=== PATIENT | female | born 1955 | race Caucasian/White ===

== ENCOUNTER 2016-11-28 16:20 | Inpatient (IN) ==
--- NOTE | 2016-11-28 18:51 | Emergency Department Note ---
Disposition Clinical Impression: Carotid stenosis, symptomatic w/o infarct Qualifiers: Laterality: bilateral Qualified Code(s): I65.23 - Occlusion and stenosis of bilateral carotid arteries Disposition: Admitted As Inpatient Referrals: Alivia Worthy MD [Primary Care Provider] - Forms: ED Satisfaction Letter Recheck wound or abnormal lab - General Chief Complaint: ED Recheck/Abnormal Lab/Rx Stated Complaint: sent from PCP Source: patient Limitations: no limitations Nursing Notes Reviewed: Yes Vital Signs Reviewed: Yes - History of Present Illness HPI Narrative: Patient presents from her primary care physician office for CT scan. Per report patient had a CVA in August 2016. Patient has significant occlusion of her bilateral internal carotid arteries. Patient does have some deficits from previous. Due to patient continue her symptoms patient would need a CTA of the neck to evaluate the carotids further. She denies chest pain or shortness of breath. - Related Data Home Medications Medication Instructions Recorded Confirmed Atorvastatin Calcium [Lipitor] 40 mg PO HS 11/07/16 11/07/16 Clopidogrel Bisulfate 75 mg DAILY 11/07/16 11/07/16 Famotidine [Pepcid] 20 mg PO BID 11/07/16 11/07/16 Lisinopril [Zestril] 5 mg PO DAILY 11/07/16 11/07/16 Aspirin 81 mg PO DAILY 11/28/16 11/28/16 Baclofen 20 mg PO DAILY 11/28/16 11/28/16 Zolpidem [Ambien] 10 mg PO HS 11/28/16 11/28/16 Allergies Allergy/AdvReac Type Severity Reaction Status Date / Time No Known Allergies Allergy Verified 11/07/16 19:18 All systems ED: reviewed and negative except as stated. Past Medical History - Past Medical History Source: patient Medical history: Reports: arthritis, coronary artery disease, CVA, hyperlipidemia, hypertension, other Surgical history: Reports: no surgical history Psychiatric history: Reports: no psych history SENIOR JAVA DATA ARCHITECT history: Reports: no SENIOR JAVA DATA ARCHITECT history - Social History Smoking Status: Current every day smoker Smokeless Tobacco Status: No Alcohol use: Reports: none Drug use: Reports: none Physical Exam - General Limitations: no limitations General appearance: alert, in no apparent distress - Head Head exam: atraumatic, normocephalic, normal inspection - Eye Eye exam: Present: normal appearance, PERRL, EOMI - ENT ENT exam: normal exam, normal oropharynx, mucous membranes moist - Neck Neck exam: Present: normal inspection, full ROM, trachea midline - Chest Chest inspection: Present: normal inspection, symmetric chest wall rise - Respiratory Respiratory exam: Present: normal lung sounds bilaterally - Cardiovascular Cardiovascular exam: Present: regular rate, normal rhythm, normal heart sounds - Abdominal Exam Abdominal exam: Present: soft, Non-Tender. Absent: tenderness, distention, guarding, rebound, rigidity - Extremities Exam Extremities exam: Present: other (Decreased strength in right upper extremity compared to the left. At baseline for her previous CVA). Absent: tenderness, pedal edema - Back Exam Back exam: Present: normal inspection, full ROM. Absent: tenderness - Neurological Exam Neurological exam: Present: alert - Psychiatric Psychiatric exam: Present: normal affect, normal mood - Skin Skin exam: Present: warm, dry, intact, normal color Course Vital Signs Temperature 98.0 F 11/28/16 16:22 Pulse Rate 85 11/28/16 16:22 Respiratory Rate 14 11/28/16 16:22 Blood Pressure 159/98 11/28/16 16:22 O2 Sat by Pulse Oximetry 93 L 11/28/16 16:22 Temperature 98.0 F 11/28/16 16:22 Pulse Rate 85 11/28/16 16:22 Respiratory Rate 14 11/28/16 16:22 Blood Pressure 159/98 11/28/16 16:22 O2 Sat by Pulse Oximetry 93 L 11/28/16 16:22 Oxygen Delivery Oxygen Delivery Room Air Recheck wound or abnormal lab - Lab Data Lab results reviewed: Yes I reviewed the patient's lab results. Result diagrams: 11/28/16 19:10 11/28/16 19:09 Lab Results 11/28/16 11/28/16 Range/Units 19:09 19:10 WBC 6.2 (4.3-11.1) K/mcL RBC 4.71 (3.82-4.97) M/mcL Hgb 14.5 (11.5-15.4) g/dL Hct 43.5 (35.3-44.9) % MCV 92.4 (83.0-100.0) fL MCH 30.8 (28.0-33.3) pg MCHC 33.3 (31.6-35.5) g/dL RDW 12.7 (11.5-14.5) % Plt Count 246 (140-400) K/mcL MPV 10.1 (9.4-12.4) fL Immature Gran % 0.3 (0-4) % Seg Neutrophils % 54.3 % Lymphocytes % 34.9 % Monocytes % 9.0 % Eosinophils % 1.0 % Basophils % 0.5 % Neutrophils # 3.4 (1.6-8.9) K/mcL Lymphocytes # 2.2 (0.6-4.6) K/mcL Monocytes # 0.6 (0.0-1.3) K/mcL Eosinophils # 0.1 (0.0-0.6) K/mcL Basophils # 0.0 (0.0-0.2) K/mcL Sodium 139 (136-145) mEq/L Potassium 4.1 (3.5-4.5) mEq/L Chloride 107 (98-109) mEq/L Carbon Dioxide 22 (19-29) mEq/L BUN 5 L (7-20) mg/dL Creatinine 0.63 (0.57-1.11) mg/dL Est GFR ( Amer) > 60 (> 60) Est GFR (Non-Af Amer) > 60 (> 60) BUN/Creatinine Ratio 8 (6-26) Glucose 94 (70-99) mg/dL Calculated Osmolality 285 (280-300) Calcium 9.4 (8.6-10.8) mg/dL Total Bilirubin 0.6 (0.2-1.2) mg/dL AST 19 (5-34) Units/L ALT 19 (0-55) Units/L Alkaline Phosphatase 82 (38-126) Units/L Serum Total Protein 6.1 (6.0-8.3) g/dL Albumin 3.7 (3.5-5.0) g/dL Globulin 2.4 (2.4-3.5) g/dL Albumin/Globulin Ratio 1.5 (1.1-2.2) - Radiology Data Radiology results reviewed: Yes I reviewed the patient's radiology results. Neck CTA 11/28/16 18:24 IMPRESSION: Complete occlusion of the left internal carotid artery at the origin. Approximately 90% diameter stenosis involving the midportion of the right internal carotid artery. Moderate-sized old left MCA infarct. D/ /28/2016 20:53:28 Kendrick Montemayor MD / stephon Interpreting Provider: Kendrick Montemayor MD Critical Care Time Total Critical Care Time: 30 Attestation: Critical care performed: Time is exclusive of separately billable procedures. Time includes: direct patient care, patient reassessment, coordination of patient care, interpretation of data (laboratory data, radiology data, and respiratory data), review of patient's medical records, medical consultation and documentation of patient care. Procedures included in critical care time: Procedures excluded from critical care time:
[2016-11-28 19:24] LABS: Basophils % 0.5 %; Eosinophils # 0.1 K/mcL (0.0-0.6); Hematocrit 43.5 % (35.3-44.9); Hemoglobin 14.5 g/dL (11.5-15.4); Immature Granulocytes % 0.3 % (0-4); Lymphocytes # 2.2 K/mcL (0.6-4.6); Lymphocytes % 34.9 %; Mean Corpuscular HGB Conc 33.3 g/dL (31.6-35.5); Mean Corpuscular Hemoglobin 30.8 pg (28.0-33.3); Mean Corpuscular Volume 92.4 fL (83.0-100.0); Mean Platelet Volume 10.1 fL (9.4-12.4); Monocytes # 0.6 K/mcL (0.0-1.3); Neutrophils # 3.4 K/mcL (1.6-8.9); Platelet Count 246 K/mcL (140-400); Red Blood Count 4.71 M/mcL (3.82-4.97); Red Cell Distribution Width 12.7 % (11.5-14.5); Segmented Neutrophils % 54.3 %
[2016-11-28 19:40] LABS: Alanine Aminotransferase 19 Units/L (0-55); Albumin 3.7 g/dL (3.5-5.0); Albumin/Globulin Ratio 1.5 (1.1-2.2); Alkaline Phosphatase 82 Units/L (38-126); Aspartate Amino Transferase 19 Units/L (5-34); BUN/Creatinine Ratio 8 (6-26); Bilirubin,Total 0.6 mg/dL (0.2-1.2); Calcium 9.4 mg/dL (8.6-10.8); Carbon Dioxide 22 mEq/L (19-29); Chloride 107 mEq/L (98-109); Globulin 2.4 g/dL (2.4-3.5); Glucose 94 mg/dL (70-99); Osmolality,Calculated 285 (280-300); Potassium 4.1 mEq/L (3.5-4.5); Sodium 139 mEq/L (136-145); Total Protein 6.1 g/dL (6.0-8.3); eGFR For African Americans > 60 (> 60); eGFR For Non-African Americans > 60 (> 60)
[2016-11-28 19:41] LABS: Blood Urea Nitrogen 5 mg/dL (7-20)
--- NOTE | 2016-11-29 00:58 | Internal Med History&Physical ---
<VikramSophia Weaver Saul - Last Filed: 11/29/16 05:38> Date of Encounter: 11/28/16 Time of Encounter: 23:30 Assessment and Plan (1) Carotid stenosis, symptomatic, with infarction Status: Acute Old Infarct with residual deficit to Left MCA CTA neck 11/28/16 -Right internal carotid with 90% diameter stenosis -Moderate old left MCA infarct, complete occlusion of left internal carotid Consult vascular surgery-appreciate evaluation and recommendations Consult neurology-appreciate evaluation and recommendations Continue home ASA, statin, anti-platelet therapy (2) History of CVA with residual deficit Status: Chronic Plan as above Consult PT/OT to develop POC for home therapy Consult Drier Tender for resource planning (3) Hyperlipidemia Status: Chronic Continue home medications Qualifiers: Hyperlipidemia type: unspecified Qualified Code(s): E78.5 - Hyperlipidemia , unspecified (4) Hypertension Status: Chronic Continue home medication Qualifiers: Hypertension type: essential hypertension Qualified Code(s): I10 - Essential (primary) hypertension (5) Current every day smoker Status: Acute Nicotine patch (6) 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 Daigle is a 61 year old female who presents as a direct admit from Dr. Yi , PCP, to evaluate carotid arteries with CTA neck. She states that she had a stroke in August,. She was living in [place], [place] at that time and began having drooling and right-sided facial droop. She refused to go to the ED. The following morning, patient's neighbor found her in her home and called EMS. Patient states that she had right leg paralysis, right arm paralysis, inability to walk, dysarthria, right facial droop, urinary incontinence. She denies having memory problem or bowel incontinence. At this time, the patient states that her dysarthria and facial droop is improved. However, she cannot walk. She still has arm and leg paralysis that she feels is improving. And, she continues to have urinary incontinence. She has moved back to [place] to live with her son and [id number] who are caring for her full-time. She has not undergone physical therapy due to the fact that she does not have insurance and cannot afford the expense of paying for therapy [id number]. Past Med Surg Social Fam HX - Past Medical History Medical history: arthritis, coronary artery disease, CVA, hyperlipidemia, hypertension, other (Right leg pain) Psychiatric history: no psych history - Past Surgical History Surgical History: no surgical history - Social History Smoking Status: Current every day smoker Smokeless Tobacco Status: No Alcohol use: none Drug use: none - Family History Mother Hx Family Cancer: Yes Father Living Status: Age at : 78 Cause of : [place] Hx Family Cardiac Disorders: Yes Hx Family Neuromuscular Disorders: Yes Hx Family Neurologic Disorders: Yes Internal Medicine - H&P: Meds Famotidine [Pepcid] 20 mg PO Q12H 11/07/16 [History] Lisinopril [Zestril] 5 mg PO DAILY 11/07/16 [History] Aspirin 81 mg PO DAILY 11/28/16 [History] Aspirin 81 mg PO DAILY #30 tab.chew 12/04/16 [Rx] Atorvastatin Calcium [Lipitor] 40 mg PO HS #30 12/04/16 [Rx] Baclofen [Lioresal] 15 mg PO TID #30 tablet 12/04/16 [Rx] Clopidogrel [Plavix] 75 mg PO DAILY #30 12/04/16 [Rx] HYDROcodone/Acet 5/325 mg [[place] 5-325 mg] 1 tab PO Q6HR PRN #20 tablet [Rx] Zolpidem [Ambien] 10 mg PO HS #10 12/04/16 [Rx] Allergies No Known Allergies Allergy (Verified 11/07/16 19:18) All Systems PM: A 10-system review of systems was performed and is negative for pertinent findings except as documented above in the HPI. - Constitutional Vitals: Temp Pulse Resp BP Pulse Ox 97.9 F 88 18 148/93 94 L 11/28/16 22:34 11/28/16 22:34 11/28/16 22:34 11/28/16 22:34 11/28/16 22:34 General appearance: Present: cooperative, A&O X 3, pleasant, answers questions appropriately - Head Head exam: Present: atraumatic, normal inspection, normocephalic - Eye Eye exam: Present: nystagmus (Left eye on right lateral gaze) Pupils: Present: unequal (Right pupil 4.5mm, reactive to light and accommodation. Left pupil 3mm, reactive to light and accomodation.) - Respiratory Respiratory exam: Present: CTAB. Absent: rhonchi, wheezes - Cardiovascular Cardiovascular exam: Present: RRR, +S1, +S2 - GI/Abdominal GI/Abdominal exam: Present: normal bowel sounds, soft. Absent: tenderness - Extremities Exam Extremities exam: Present: radial pulses palpable and symetrical Additional comments: Right knee with anterior and medial tissue swelling - Neurological Exam Neurological exam: Absent: speech deficit Additional comments: CN exam: EOMI -Pupils unequal (left eye 4.5mm, right eye 3mm) -Both pupils reactive to light and accommodation -Nystagmus of left eye to right lateral gaze -Intact sensation V1,V2,V3 -Facial droop of right face -Hearing intact, but not tested for laterality -Gag reflex intact -Absent shoulder shrug on right -Tongue deviates to right on protrusion Right arm: C5,6,7 reflexes 4+, sensation decreased, arm is contracted into flexion, hand is contracted to fist Left arm: C5,6,7 reflexes 2+, strength 5/5 Right leg: L4 reflex unable to appreciate, S1 reflex 4+, clonus to Right foot, Babinski is upgoing, right leg is contracted into extension Left leg: L4, S1 reflexes 2+, strength 5/5 Internal Med - H&P Results - Labs CBC & Chem 7: 11/28/16 19:10 11/28/16 19:09 - Impressions Neck CTA 11/28/16 18:24 IMPRESSION: Complete occlusion of the left internal carotid artery at the origin. Approximately 90% diameter stenosis involving the midportion of the right internal carotid artery. Moderate-sized old left MCA infarct. D/ / 11/28/2016 20:53:28 Kendrick Montemayor MD / stephon Interpreting Provider: Kendrick Montemayor MD - Attending Attestation I examined this patient and my medical decision-making was reviewed with the PRODUCTION TEAM ADVISOR/PA/Advanced Practice Nurse/Resident Physician. I agree with the documented findings, disposition and treatment plan as described except to the extent set forth below. <Manish Rust - Last Filed: 12/05/16 23:50> Internal Medicine - H&P: HPI Plans for Post Hospital Care: Home History of present illness: Ms. Daigle is a 61 year old female with history of August 2016 CVA with residual deficits and concerns for critical carotid artery disease. The patient was visited and interviewed and examined. I examined this patient and my medical decision-making was reviewed with the Resident Physician. For this encounter, I have reviewed the documentation, treatment plan, and medical decision making; and I have had face to face time with this patient. I agree with the documented findings, disposition and treatment plan as described except to the extent set forth below. Cumulative laboratory and radiographic database was reviewed and considered and discussed. Pertinent ancillary medical records including ECW and PCI documentation, when available, was reviewed and considered. Given the patient's presenting concerns, past medical history, clinical findings and symptoms, she is admitted at this time to undergo further evaluation and disposition. Orders were written as per the computerized physician hospital orderly system........................ All Systems PM: A 10-system review of systems was performed and is negative for pertinent findings except as documented above in the HPI. - Constitutional Vitals: Temp Pulse Resp BP Pulse Ox 98.2 F 70 16 133/88 95 12/04/16 11:00 12/04/16 11:42 12/04/16 11:00 12/04/16 11:00 12/04/16 11:00 Internal Med - H&P Results - Labs CBC & Chem 7: 11/28/16 19:10 11/28/16 19:09 - Impressions Laboratory Results WBC 6.2 K/mcL (4.3-11.1) 11/28/16 19:10 RBC 4.71 M/mcL (3.82-4.97) 11/28/16 19:10 Hgb 14.5 g/dL (11.5-15.4) 11/28/16 19:10 Hct 43.5 % (35.3-44.9) 11/28/16 19:10 MCV 92.4 fL (83.0-100.0) 11/28/16 19:10 MCH 30.8 pg (28.0-33.3) 11/28/16 19:10 MCHC 33.3 g/dL (31.6-35.5) 11/28/16 19:10 RDW 12.7 % (11.5-14.5) 11/28/16 19:10 Plt Count 246 K/mcL (140-400) 11/28/16 19:10 MPV 10.1 fL (9.4-12.4) 11/28/16 19:10 Immature Gran % 0.3 % (0-4) 11/28/16 19:10 Seg Neutrophils % 54.3 % 11/28/16 19:10 Lymphocytes % 34.9 % 11/28/16 19:10 Monocytes % 9.0 % 11/28/16 19:10 Eosinophils % 1.0 % 11/28/16 19:10 Basophils % 0.5 % 11/28/16 19:10 Neutrophils # 3.4 K/mcL (1.6-8.9) 11/28/16 19:10 Lymphocytes # 2.2 K/mcL (0.6-4.6) 11/28/16 19:10 Monocytes # 0.6 K/mcL (0.0-1.3) 11/28/16 19:10 Eosinophils # 0.1 K/mcL (0.0-0.6) 11/28/16 19:10 Basophils # 0.0 K/mcL (0.0-0.2) 11/28/16 19:10 Heparin Neutralization NOT APPLICABLE sec (32-48) 11/29/16 03:16 PT 11.3 Seconds (9.4-12.1) 11/29/16 03:16 INR 1.0 11/29/16 03:16 APTT 31.4 Seconds (26.0-36.0) 11/29/16 03:16 Thrombin Time NOT APPLICABLE sec (14.7-19.5) 11/29/16 03:16 D-Dimer 449 ng/mLFEU (0-500) 11/29/16 03:16 Plt Neutralization NOT APPLICABLE (Negative) 11/29/16 03:16 Lupus Anticoag INR 12.6 sec (12.0-15.5) 11/29/16 03:16 Lupus Anticoag aPTT 39 sec (32-48) 11/29/16 03:16 LA PTT Mix Pt/Norm 1:1 NOT APPLICABLE sec (32-48) 11/29/16 03:16 Dil Ruslan Viper Venom 34 sec (33-44) 11/29/16 03:16 LA dRVVT Confirm NOT APPLICABLE ratio (Negative) 11/29/16 03:16 dRVVT Mix NOT APPLICABLE sec (33-44) 11/29/16 03:16 LA Reptilase Time NOT APPLICABLE sec (<=21.9) 11/29/16 03:16 Hexag Phospholip Neutrl NOT APPLICABLE (Negative) 11/29/16 03:16 Lupus Anticoag Interp SEE NOTE 11/29/16 03:16 Factor V Leiden Interp Normal (Normal) 11/29/16 03:16 VBG pH 7.45 pH Units (7.32-7.42) H 11/29/16 03:16 VBG pCO2 42 mmHg (41-51) 11/29/16 03:16 VBG pO2 96 mmHg (25-40) H 11/29/16 03:16 VBG HCO3 29.2 mEq/L (21-27) H 11/29/16 03:16 Sodium 139 mEq/L (136-145) 11/28/16 19:09 Potassium 4.1 mEq/L (3.5-4.5) 11/28/16 19:09 Chloride 107 mEq/L (98-109) 11/28/16 19:09 Carbon Dioxide 22 mEq/L (19-29) 11/28/16 19:09 BUN 5 mg/dL (7-20) L 11/28/16 19:09 Creatinine 0.63 mg/dL (0.57-1.11) 11/28/16 19:09 Est GFR ( Amer) > 60 (> 60) 11/28/16 19:09 Est GFR (Non-Af Amer) > 60 (> 60) 11/28/16 19:09 BUN/Creatinine Ratio 8 (6-26) 11/28/16 19:09 Glucose 94 mg/dL (70-99) 11/28/16 19:09 Est Mean Plasma Glucose 97 mg/dl 11/29/16 03:16 Hemoglobin A1c 5.0 % (-5.6) 11/29/16 03:16 Calculated Osmolality 285 (280-300) 11/28/16 19:09 Lactic Acid 1.0 mmol/L (0.5-2.2) 11/29/16 03:16 Calcium 9.4 mg/dL (8.6-10.8) 11/28/16 19:09 Ionized Calcium 1.17 mmol/L (1.15-1.35) 11/29/16 03:16 Phosphorus 3.9 mg/dL (2.3-4.7) 11/29/16 03:16 Magnesium 2.0 mg/dL (1.6-2.6) 11/29/16 03:16 Total Bilirubin 0.6 mg/dL (0.2-1.2) 11/28/16 19:09 AST 19 Units/L (5-34) 11/28/16 19:09 ALT 19 Units/L (0-55) 11/28/16 19:09 Alkaline Phosphatase 82 Units/L (38-126) 11/28/16 19:09 Troponin I 0.00 ng/mL (0-0.03) 11/29/16 08:40 C-Reactive Protein 1 mg/L (Less than 5) 11/29/16 03:16 Serum Total Protein 6.1 g/dL (6.0-8.3) 11/28/16 19:09 Albumin 3.7 g/dL (3.5-5.0) 11/28/16 19:09 Globulin 2.4 g/dL (2.4-3.5) 11/28/16 19:09 Albumin/Globulin Ratio 1.5 (1.1-2.2) 11/28/16 19:09 Triglycerides 82 mg/dL (< 150) 11/29/16 03:16 Cholesterol 109 mg/dL (< 200) 11/29/16 03:16 LDL Cholesterol, Calc 54 mg/dL (0-99) 11/29/16 03:16 VLDL Cholesterol, Calc 16 mg/dL (< 31) 11/29/16 03:16 HDL Cholesterol 39 mg/dL (40-59) L 11/29/16 03:16 Cholesterol/HDL Ratio 2.8 (0-4.9) 11/29/16 03:16 Homocysteine 15 umol/L (<=10) H 11/29/16 03:16 TSH 1.051 mcIU/mL (0.350-4.840) 11/29/16 03:16 Free T4 1.13 ng/dl (0.70-1.48) 11/29/16 03:16 Thyroxine (T4) 7.89 mcg/dL (4.87-11.72) 11/29/16 03:16 Urine Color Yellow (Yellow) 11/29/16 04:00 Urine Clarity Clear (Clear) 11/29/16 04:00 Urine pH 7.0 pH Units (5.0-8.0) 11/29/16 04:00 Ur Specific [place] > 1.030 (1.010-1.025) H 11/29/16 04:00 Urine Protein Negative mg/dL (Neg-Trace) 11/29/16 04:00 Urine Glucose (UA) Normal mg/dL (Normal) 11/29/16 04:00 Urine Ketones Negative mg/dL (Negative) 11/29/16 04:00 Urine Blood Negative (Negative) 11/29/16 04:00 Urine Nitrite Negative (Negative) 11/29/16 04:00 Urine Bilirubin Negative (Negative) 11/29/16 04:00 Urine Urobilinogen Normal mg/dL (Normal) 11/29/16 04:00 Ur Leukocyte Esterase Negative (Negative) 11/29/16 04:00 Urine Opiates Screen Negative ng/mL (Drmfhw=976) 11/29/16 04:00 Ur Barbiturates Screen Negative ng/mL (Svwsep=595) 11/29/16 04:00 Ur Phencyclidine Scrn Negative ng/mL (Cutoff=25) 11/29/16 04:00 Ur Amphetamines Screen Negative ng/mL (Ucnlwa=4162) 11/29/16 04:00 U Benzodiazepines Scrn Negative ng/mL (Ygqtum=673) 11/29/16 04:00 Urine Cocaine Screen Negative ng/mL (Cutoff= 300) 11/29/16 04:00 U Marijuana (THC) Screen Negative ng/mL (Cutoff = 50) 11/29/16 04:00 Beta-2-GPI IgG Ab 0 SGU (0-20) 11/29/16 03:16 Beta-2-GPI IgM Ab 1 SMU (0-20) 11/29/16 03:16 Anti-Cardiolipin IgG Ab 0 GPL (0-14) 11/29/16 03:16 Anti-Cardiolipin IgM Ab 3 MPL (0-12) 11/29/16 03:16 Blood Type O POSITIVE 12/01/16 01:03 Antibody Screen NEGATIVE 12/01/16 01:03 Crossmatch See Detail 12/01/16 01:03 Impressions Neck CTA 11/28/16 18:24 IMPRESSION: Complete occlusion of the left internal carotid artery at the origin. Approximately 90% diameter stenosis involving the midportion of the right internal carotid artery. Moderate-sized old left MCA infarct. D/ / 11/28/2016 20:53:28 Kendrick Montemayor MD / stephon Interpreting Provider: Kendrick Montemayor MD Brain MRI 11/29/16 02:13 IMPRESSION: 1. No acute intracranial abnormality. 2. Moderate volume left middle cerebral artery territory encephalomalacia in keeping with sequela of remote infarct. 3. Mild chronic white matter microvascular ischemic changes. 4. No acute intracranial arterial abnormality. 5. Occlusion of the left internal carotid artery from its origin through the cavernous portion with partial reconstitution of the cavernous and supraclinoid segments via retrograde supply. 6. Diminished signal within the left middle cerebral artery consistent with sequela of prior thrombosis. 7. High-grade stenosis of the proximal right internal carotid artery. 8. Patent vertebral arteries. D/ / Ethan Cornejo MD / Ethan Cornejo MD Interpreting Provider: Ethan Cornejo MD Head MRA 11/29/16 02:13 IMPRESSION: 1. No acute intracranial abnormality. 2. Moderate volume left middle cerebral artery territory encephalomalacia in keeping with sequela of remote infarct. 3. Mild chronic white matter microvascular ischemic changes. 4. No acute intracranial arterial abnormality. 5. Occlusion of the left internal carotid artery from its origin through the cavernous portion with partial reconstitution of the cavernous and supraclinoid segments via retrograde supply. 6. Diminished signal within the left middle cerebral artery consistent with sequela of prior thrombosis. 7. High-grade stenosis of the proximal right internal carotid artery. 8. Patent vertebral arteries. D/ / Ethan Cornejo MD / Ethan Cornejo MD Interpreting Provider: Ethan Cornejo MD Neck MRA 11/29/16 02:13 IMPRESSION: 1. No acute intracranial abnormality. 2. Moderate volume left middle cerebral artery territory encephalomalacia in keeping with sequela of remote infarct. 3. Mild chronic white matter microvascular ischemic changes. 4. No acute intracranial arterial abnormality. 5. Occlusion of the left internal carotid artery from its origin through the cavernous portion with partial reconstitution of the cavernous and supraclinoid segments via retrograde supply. 6. Diminished signal within the left middle cerebral artery consistent with sequela of prior thrombosis. 7. High-grade stenosis of the proximal right internal carotid artery. 8. Patent vertebral arteries. D/ / Ethan Cornejo MD / Ethan Cornejo MD Interpreting Provider: Ethan Cornejo MD Abnormal lab results VBG pH 7.45 pH Units (7.32-7.42) H 11/29/16 03:16 VBG pO2 96 mmHg (25-40) H 11/29/16 03:16 VBG HCO3 29.2 mEq/L (21-27) H 11/29/16 03:16 BUN 5 mg/dL (7-20) L 11/28/16 19:09 HDL Cholesterol 39 mg/dL (40-59) L 11/29/16 03:16 Homocysteine 15 umol/L (<=10) H 11/29/16 03:16 Ur Specific [place] > 1.030 (1.010-1.025) H 11/29/16 04:00 - Attending Attestation My signature below is to certify that this patient is under my care and that I, or the Resident Physician working with me, has had a [id number] encounter with this patient. Plan of care has been reviewed and discussed in detail with patient. Questions addressed. Advanced directive discussion briefly addressed. The patient does not declare any healthcare restrictions at this time. Outpatient medication schedules will be reviewed, confirmed and facilitated as appropriate. Reconciliation of home treatments including adjustments, substitutions and reintroduction into the treatment regimen will address necessary maintenance for chronic pre-existing medical conditions. Smoke cessation counseling previously addressed. Patient declares that she is a current smoker. Nicotine substitution provided during this hospitalization. Hospital course will be dependent on clinical findings, treatment response and potential consultative interventions. The patient is a risk for acute clinical decline in mobility given her presenting chief complaint, frailty and associated comorbidities. Condition is serious. Prognosis is guarded. CODE STATUS is full.
[2016-11-29] MEDS: Baclofen 10 MG TABLET PO SCH ×4 (01:25→20:57)
[2016-11-29] MEDS ORDERED: Acetaminophen 325 MG TABLET PO PRN (02:13)
[2016-11-29] MEDS ORDERED: Naloxone 0.4 MG/ML INJ IVP PRN (02:13)
[2016-11-29] MEDS ORDERED: Ondansetron 4 MG/2 ML VIAL IVP PRN (02:13)
[2016-11-29] MEDS ORDERED: *HR* Morphine 2 MG/ML SYRINGE IVP PRN (02:13)
[2016-11-29 03:42] LABS: Prothrombin Time 11.3 Seconds (9.4-12.1)
[2016-11-29 03:44] LABS: Activated Partial Thrombo Time 31.4 Seconds (26.0-36.0)
[2016-11-29 03:52] LABS: Ionized Calcium 1.17 mmol/L (1.15-1.35)
[2016-11-29 03:54] LABS: VBG HCO3 29.2 mEq/L (21-27); VBG PH 7.45 pH Units (7.32-7.42)
[2016-11-29 03:56] LABS: Chol/HDL Ratio 2.8 (0-4.9); Phosphorous 3.9 mg/dL (2.3-4.7)
[2016-11-29] MEDS: 0.9 % Sodium Chloride 1,000 ML IVC SCH ×2 (04:15→20:59)
[2016-11-29 04:17] LABS: Thyroid Stimulating Hormone 1.051 mcIU/mL (0.350-4.840)
[2016-11-29 04:27] LABS: Bilirubin,Urine Negative (Negative); Blood,Urine Negative (Negative); Clarity,Urine Clear (Clear); Color,Urine Yellow (Yellow); Glucose,Urine (UA) Normal (Normal); Ketones,Urine Negative (Negative); Leukocyte Esterase,Urine Negative (Negative); Nitrite,Urine Negative (Negative); Protein,Urine Negative (Neg-Trace); Specific Gravity,Urine > 1.030 (1.010-1.025); Urobilinogen,Urine Normal (Normal)
[2016-11-29 04:33] LABS: Amphetamine Screen,Urine Negative ng/mL (Cutoff=1000); Barbiturate Screen,Urine Negative ng/mL (Cutoff=200); Benzodiazepines Screen,Urine Negative ng/mL (Cutoff=200); Cannabinoid Screen,Urine Negative ng/mL (Cutoff = 50); Cocaine Screen,Urine Negative ng/mL (Cutoff= 300); Opiate Screen,Urine Negative ng/mL (Cutoff=300); Phencyclidine Screen,Urine Negative ng/mL (Cutoff=25)
[2016-11-29] MEDS: *HR* OxyCODONE Immed Rel 5 MG TABLET PO PRN ×3 (06:45→21:09)
[2016-11-29] MEDS: Famotidine 20 MG TABLET PO SCH ×2 (06:45→17:36)
[2016-11-29] MEDS: *HR* Enoxaparin 40 MG/0.4 ML SYRINGE SQ SCH (06:46)
[2016-11-29] MEDS: Nicotine 21 MG PATCH.TD24 TD SCH (08:20)
[2016-11-29] MEDS ORDERED: Aspirin 81 MG TAB.CHEW PO SCH (09:00)
--- NOTE | 2016-11-29 09:29 | Vascular/Endovascular H&P ---
Date of Encounter: 11/29/16 Time of Encounter: 09:00 Assessment and Plan (1) Stenosis of right internal carotid artery Current Visit: Yes Status: Chronic The patient has a VETO >90% stenosis. She has been scheduled for a right carotied endarterectomy. The risks, benefits and alternatives were discussed and all questions were answered. The patient expressed understanding and wishes to proceed. We will continue her Plavix, but hold her ASA. The patient was discussed with Dr. Chapin and the hospitalist team. (2) Occlusion of left internal carotid artery Current Visit: Yes Status: Chronic (3) Current every day smoker Current Visit: Yes Status: Chronic She was counseled regarding smoking cessation. (4) History of CVA with residual deficit Current Visit: Yes Status: Chronic (5) Hyperlipidemia Current Visit: Yes Status: Chronic She was counseled regarding atherosclerotic risk factor reduction. Qualifiers: Hyperlipidemia type: unspecified Qualified Code(s): E78.5 - Hyperlipidemia , unspecified (6) Hypertension Current Visit: Yes Status: Chronic Qualifiers: Hypertension type: essential hypertension Qualified Code(s): I10 - Essential (primary) hypertension History of Present Illness Chief complaint: Carotid artery stenosis HPI: Ms. Daigle is a 61 year old female with a history of a left hemispheric CVA due to a LICA occlusion. 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 She was previously found on duplex to have a high grade right internal carotid artery stenosis. She presented to the ER and underwent a CTA of the neck and the stenosis was noted to be >90%. She was admitted and vascular surgery was consulted by Angela Chaudhry CNP from the Hospitalist Service for further evaluation. She currently reports no changes in her symptoms. She denies any current right hemispheric symptoms of CVA, TIA or Amaurosis fugax. She denies chest pain or shortness of breath. Past Med Surg Social Fam HX - Past Medical History Medical history: arthritis, coronary artery disease, CVA, hyperlipidemia, hypertension, other (Right leg pain) Psychiatric history: no psych history - Past Surgical History Surgical History: no surgical history - Social History Smoking Status: Current every day smoker Smokeless Tobacco Status: No Alcohol use: none Drug use: none - Family History Mother Hx Family Cancer: Yes Father Living Status: Age at : 78 Cause of : [place] Hx Family Cardiac Disorders: Yes Hx Family Neuromuscular Disorders: Yes Hx Family Neurologic Disorders: Yes Medications and Allergies Atorvastatin Calcium [Lipitor] 40 mg PO HS 11/07/16 [History] Clopidogrel [Plavix] 75 mg PO DAILY 11/07/16 [History] Famotidine [Pepcid] 20 mg PO Q12H 11/07/16 [History] Lisinopril [Zestril] 5 mg PO DAILY 11/07/16 [History] Aspirin 81 mg PO DAILY 11/28/16 [History] Baclofen 20 mg PO DAILY 11/28/16 [History] Zolpidem [Ambien] 10 mg PO HS 11/28/16 [History] Allergies No Known Allergies Allergy (Verified 11/07/16 19:18) All Systems Review: A 10-system review of systems was performed and is negative for pertinent findings except as documented above in the HPI. - Constitutional Constitutional: no chills, no fever(s) - Cardiovascular Cardiovascular: no chest pain at rest, no chest pain with exertion, no dyspnea at rest, no dyspnea on exertion Exam Vital Signs, Last 4 Hours Temp Pulse Resp BP Pulse Ox 11/29/16 07:06 98.1 F 92 16 131/82 94 L General: Present: Conversant, No Apparent Distress HEENT: Present: Atraumatic, Trachea midline Neck: Present: Right Carotid bruit. Absent: JVD, Left Carotid bruit Cardiac: Present: Reg Rate and Rhythm, Normal S1 and S2, No Murmur Lungs: Present: Normal Breath Sounds, No Wheeze, Rales, Rhonchi Neuro: Present: Alert and responsive, Other (0/5 right upper extremity motor, 3+ /5 right lower extremity motor, 5/5 left side motor) Abdomen: Present: Soft, Non-tender Vascular: Present: Normal capillary refill, Pulse, normal. Absent: Cyanosis, Edema Skin: Present: No rashes noted on visualized skin Musculoskeletal: Present: No Chest Wall Tenderness Results 11/28/16 19:10 11/28/16 19:09 Lab Results, Last 24 hours 11/29/16 11/29/16 11/29/16 03:16 03:16 03:16 INR 1.0 APTT 31.4 D-Dimer 449 Magnesium 2.0 Troponin I 0.01 TSH 1.051 - Imaging / Other Tests CT/CTA: report reviewed, image reviewed
--- NOTE | 2016-11-29 10:13 | Neurology - Consult Note ---
<Andreas Garcia - Last Filed: 11/29/16 10:11> Date of Encounter: 11/29/16 Time of Encounter: 10:11 Assessment and Plan (1) History of CVA with residual deficit Current Visit: Yes Status: Chronic - No acute changes in her neurological deficits - Main issue is 90% R ICA stenosis, planned carotid endarterectomy with vascular sx - continue Plavix - Hold aspirin - Continue all other medical and supportive therapies - Further recommendations pending attending evaluation (2) Carotid stenosis, symptomatic w/o infarct Current Visit: Yes Status: Acute - Managed per vascular team - Planned R carotid endarterectomy Qualifiers: Laterality: bilateral Qualified Code(s): I65.23 - Occlusion and stenosis of bilateral carotid arteries History of Present Illness Chief complaint: sent from PCP HPI: Ms. Daigle is a 61 year old female presenting through the [facility] after being sent from her Dr. Yi' office for carotid stenosis evaluation. Patient had a stroke in August 2016 and recently had an US of her carotids which showed significant stenosis. She was sent to the ED for CTA neck. This reveal 100% occlusion on the L and 90% on the right. Also showed a moderate-sized L MCA infarction. This is consistent with her clinical exam as she has moderate/ severe residual R sided weakness. She has no change from her baseline. Past Med Surg Social Fam HX - Past Medical History Medical history: arthritis, coronary artery disease, CVA, hyperlipidemia, hypertension, other (Right leg pain) Psychiatric history: no psych history - Past Surgical History Surgical History: no surgical history - Social History Smoking Status: Current every day smoker Smokeless Tobacco Status: No Alcohol use: none Drug use: none - Family History Mother Hx Family Cancer: Yes Father Living Status: Age at : 78 Cause of : [place] Hx Family Cardiac Disorders: Yes Hx Family Neuromuscular Disorders: Yes Hx Family Neurologic Disorders: Yes Medications and Allergies Atorvastatin Calcium [Lipitor] 40 mg PO HS 11/07/16 [History] Clopidogrel [Plavix] 75 mg PO DAILY 11/07/16 [History] Famotidine [Pepcid] 20 mg PO Q12H 11/07/16 [History] Lisinopril [Zestril] 5 mg PO DAILY 11/07/16 [History] Aspirin 81 mg PO DAILY 11/28/16 [History] Baclofen 20 mg PO DAILY 11/28/16 [History] Zolpidem [Ambien] 10 mg PO HS 11/28/16 [History] Allergies No Known Allergies Allergy (Verified 11/07/16 19:18) All Systems: A 10-system review of systems was performed and is negative for pertinent findings except as documented above in the HPI. - Constitutional Constitutional ROS IM: no anorexia, no fatigue, no fever(s) - Eyes Eyes: bilateral: blurred vision (negative ) - Nose, Mouth, Throat Nose, mouth and throat: no change in voice, no headache(s), no sore throat - Cardiovascular Cardiovascular ROS IM: no chest pain - Respiratory Respiratory IM: no cough, no dyspnea - Gastrointestinal Gastrointestinal: no abdominal pain - Musculoskeletal Musculoskeletal ROS IM: as per HPI (no change from baseline) - Neurological Neurological ROS: as per HPI (no change from baseline ) Physical Examination - Vital Signs Vital Signs: Initial Vital Signs Temp Pulse Resp BP Pulse Ox 98.0 F 85 14 159/98 93 L 11/28/16 16:22 11/28/16 16:22 11/28/16 16:22 11/28/16 16:22 11/28/16 16:22 - Constitutional General appearance: comfortable, chronically ill - Neurologic Sensorimotor examination: flaccid paralysis (R side, chronic, no change ), hemiparesis (RUE/RLE) Motor examination - right side: 1/5: deltoids, biceps, triceps, wrist flexion, wrist extension, security rep, 2/5: hip flexors (2+), quadriceps, plantarflexion (2+), 3 /5: tibialis Anterior, toe extension (EHL) Motor examination - left side: 5/5: deltoids, biceps, triceps, wrist flexion, wrist extension, hip flexors, security rep, quadriceps, tibialis Anterior, toe extension (EHL), plantarflexion Detailed sensory examination: intact (on L, decreased on R, no change from baseline ) Mental Status Examination: awake, alert, oriented to person, oriented to place, oriented to time, follows commands appropriately, answers questions appropriately, no agnosia, no aphasia Cranial nerve examination: PERRL, EOMI, visual saldivar intact (reports very poor vision and baseline but no change ), mastication intact Cerebellar examination: performs finger to nose and heel to lim symmetrically without ataxia (in L, R unable to be moved ) Results - Laboratory Findings CBC and BMP: 11/28/16 19:10 11/28/16 19:09 Abnormal lab findings: Abnormal lab results VBG pH 7.45 pH Units (7.32-7.42) H 11/29/16 03:16 VBG pO2 96 mmHg (25-40) H 11/29/16 03:16 VBG HCO3 29.2 mEq/L (21-27) H 11/29/16 03:16 BUN 5 mg/dL (7-20) L 11/28/16 19:09 HDL Cholesterol 39 mg/dL (40-59) L 11/29/16 03:16 Ur Specific [place] > 1.030 (1.010-1.025) H 11/29/16 04:00 Consult Discharge Plan - Plan Referrals: Alivia Worthy MD [Primary Care Provider] - <Yuliana Chapin I - Last Filed: 11/29/16 16:05> Date of Encounter: 11/29/16 Assessment and Plan (1) Carotid stenosis, symptomatic w/o infarct Current Visit: Yes Status: Acute pt seen and examined agree with Dr Johns note, discussed with Dr Shaver, pt high risk for devastating Stroke due to critical stenosis, left is already occluded. pt would benefit from CEA. Yuliana Chapin MD Qualifiers: Laterality: right Qualified Code(s): I65.21 - Occlusion and stenosis of right carotid artery History of Present Illness HPI: Ms. Daigle is a 61 year old female All Systems: A 10-system review of systems was performed and is negative for pertinent findings except as documented above in the HPI. Physical Examination - Vital Signs Vital Signs: Initial Vital Signs Temp Pulse Resp BP Pulse Ox 98.0 F 85 14 159/98 93 L 11/28/16 16:22 11/28/16 16:22 11/28/16 16:22 11/28/16 16:22 11/28/16 16:22 Results - Laboratory Findings CBC and BMP: 11/28/16 19:10 11/28/16 19:09 Abnormal lab findings: Abnormal lab results VBG pH 7.45 pH Units (7.32-7.42) H 11/29/16 03:16 VBG pO2 96 mmHg (25-40) H 11/29/16 03:16 VBG HCO3 29.2 mEq/L (21-27) H 11/29/16 03:16 BUN 5 mg/dL (7-20) L 11/28/16 19:09 HDL Cholesterol 39 mg/dL (40-59) L 11/29/16 03:16 Ur Specific [place] > 1.030 (1.010-1.025) H 11/29/16 04:00
--- NOTE | 2016-11-29 15:00 | Internal Med Progress Note ---
Date of Encounter: 11/29/16 Time of Encounter: 14:30 - Assessment and plan (1) Carotid stenosis, symptomatic w/o infarct Current Visit: Yes Status: Acute Assessment and plan: Patient with total occlusion of her left internal carotid artery with subsequent left MCA infarct leading to residual right-sided weakness, right- sided facial droop. Patient is at highly increased risk of a repeat CVA given that her right ICA is greater than 90% occluded. Patient has an elevated risk for stroke, , further morbidity and she will be watched closely inpatient with right-sided carotid endarterectomy planned for this Sunday per vascular surgery. We will continue Plavix and hold aspirin at vascular surgery's recommendation. OT and PT are on board. ITS Impressions Neck CTA 11/28/16 18:24 IMPRESSION: Complete occlusion of the left internal carotid artery at the origin. Approximately 90% diameter stenosis involving the midportion of the right internal carotid artery. Moderate-sized old left MCA infarct. D/ / 11/28/2016 20:53:28 Kendrick Montemayor MD / stephon Interpreting Provider: Kendrick Montemayor MD Qualifiers: Laterality: right Qualified Code(s): I65.21 - Occlusion and stenosis of right carotid artery (2) Carotid stenosis, symptomatic, with infarction Current Visit: Yes Status: Chronic Assessment and plan: Patient with total occlusion of left ICA and subsequent MCA infarct 2-1/2 months ago in August 2016. Residual right-sided weakness and right-sided facial drooping. We will continue statin and Plavix, hold aspirin. 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 Current Visit: Yes Status: Chronic Assessment and plan: Continue baclofen, OT and PT are on board (6) Current every day smoker Current Visit: Yes Status: Chronic Assessment and plan: Smoking cessation counseling, nicotine patch (7) History of CVA with residual deficit Current Visit: Yes Status: Chronic (8) Hyperlipidemia Current Visit: Yes Status: Chronic Assessment and plan: Lipid panel unremarkable, recommend low-cholesterol diet and continuation of statin Qualifiers: Hyperlipidemia type: unspecified Qualified Code(s): E78.5 - Hyperlipidemia , unspecified (9) Hypertension Current Visit: Yes Status: Chronic Assessment and plan: Controlled, we will continue to trend and adjust medications as indicated. Qualifiers: Hypertension type: essential hypertension Qualified Code(s): I10 - Essential (primary) hypertension (10) Occlusion of left internal carotid artery Current Visit: Yes Status: Chronic (11) Stenosis of right internal carotid artery Current Visit: Yes Status: Chronic - Subjective Interval history: Patient seen and examined. On examination, patient alert and oriented 3. She currently complains of right leg pain consistent with her normal pain. She states she is eating well. - Constitutional Vitals: Temp Pulse Resp BP Pulse Ox 97.5 F L 80 16 142/83 96 11/29/16 11:07 11/29/16 11:07 11/29/16 11:07 11/29/16 11:07 11/29/16 11:07 General appearance: Present: cooperative, A&O X 3, pleasant, no acute distress, answers questions appropriately - Head Head exam: Present: atraumatic, normocephalic - Eye Eye exam: Present: PERRL, conjuntiva pink, sclera anicteric Pupils: Present: PERRL - Neck Neck exam general surgery: Present: supple, trachea midline. Absent: lymphadenopathy - Respiratory Respiratory exam: Present: decreased breath sounds. Absent: accessory muscle use, rales, respiratory distress, rhonchi, wheezes - Cardiovascular Cardiovascular exam: Present: RRR, +S1, +S2. Absent: diastolic murmur, gallop, rubs, systolic murmur - GI/Abdominal GI/Abdominal exam: Present: normal bowel sounds, soft, no peritoneal signs. Absent: distended, tenderness - Extremities Exam Extremities exam: Present: warm, radial pulses palpable and symetrical. Absent : calf tenderness, cyanotic, pedal edema - Neurological Exam Neurological exam: Present: alert, CN II-XII intact, oriented X3, no focal deficits, facial droop. Absent: strengths equal and symetr throughout, pronater drift, speech deficit - Expanded Neurological Exam Neurological exam expanded: Present: protecting the airway Patient oriented to: Present: person, place, time Speech: Present: fluid speech, slurred Cranial Nerves: EOM's intact PM: Normal Neuro motor strength exam: LUE: 5, RUE: 2/1, LLE: 5, RLE: 2/1 Coma Scale Eye Opening: Spontaneous Coma Scale Motor Response: Obeys Commands Coma Scale Verbal Response: Oriented Coma Scale Total: 15 - Skin Skin exam: Present: dry, intact, normal color, warm Internal Medicine: Result - Labs CBC & Chem 7: 11/28/16 19:10 11/28/16 19:09 Labs: Cardiac Enzymes 11/29/16 11/29/16 Range/Units 03:16 08:40 Troponin I 0.01 0.00 (0-0.03) ng/mL Urine 11/29/16 Range/Units 04:00 Urine Color Yellow (Yellow) Urine Clarity Clear (Clear) Urine pH 7.0 (5.0-8.0) pH Units Ur Specific [place] > 1.030 H (1.010-1.025) Urine Protein Negative (Neg-Trace) mg/dL Urine Glucose (UA) Normal (Normal) mg/dL - ABG Interpretation ABG results: PT/INR, D-dimer PT 11.3 Seconds (9.4-12.1) 11/29/16 03:16 D-Dimer 449 ng/mLFEU (0-500) 11/29/16 03:16 Consult Discharge Plan - Plan Referrals: Alivia Worthy MD [Primary Care Provider] -
[2016-11-30] MEDS: Famotidine 20 MG TABLET PO SCH ×2 (06:40→18:18)
[2016-11-30] MEDS: *HR* Enoxaparin 40 MG/0.4 ML SYRINGE SQ SCH (06:40)
[2016-11-30] MEDS: Nicotine 21 MG PATCH.TD24 TD SCH (09:50)
[2016-11-30] MEDS: Baclofen 10 MG TABLET PO SCH ×3 (09:51→21:30)
[2016-11-30] MEDS: *HR* OxyCODONE Immed Rel 5 MG TABLET PO PRN ×2 (12:13→18:18)
--- NOTE | 2016-11-30 12:37 | Internal Med Progress Note ---
Date of Encounter: 11/30/16 Time of Encounter: 10:15 - Assessment and plan (1) Carotid stenosis, symptomatic w/o infarct Current Visit: Yes Status: Acute Assessment and plan: Patient with total occlusion of her left internal carotid artery with subsequent left MCA infarct leading to residual right-sided weakness, right- sided facial droop. Patient is at highly increased risk of a repeat CVA given that her right ICA is greater than 90% occluded. Patient has an elevated risk for stroke, , further morbidity and she will be watched closely inpatient with right-sided carotid endarterectomy planned for tomorrow per vascular surgery. We will continue Plavix and hold aspirin at vascular surgery's recommendation. OT and PT are on board and have recommended inpatient swing bed. As the patient does not currently have insurance, disposition to be determined pending Medicaid application. financial services assistant on board. ITS Impressions Neck CTA 11/28/16 18:24 IMPRESSION: Complete occlusion of the left internal carotid artery at the origin. Approximately 90% diameter stenosis involving the midportion of the right internal carotid artery. Moderate-sized old left MCA infarct. D/ / 11/28/2016 20:53:28 Kendrick Montemayor MD / stephon Interpreting Provider: Kendrick Montemayor MD Qualifiers: Laterality: right Qualified Code(s): I65.21 - Occlusion and stenosis of right carotid artery (2) Carotid stenosis, symptomatic, with infarction Current Visit: Yes Status: Chronic Assessment and plan: Patient with total occlusion of left ICA and subsequent MCA infarct 2-1/2 months ago in August 2016. Residual right-sided weakness and right-sided facial drooping. We will continue statin and Plavix, hold aspirin. 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 Current Visit: Yes Status: Chronic Assessment and plan: Continue baclofen, OT and PT are on board (6) Current every day smoker Current Visit: Yes Status: Chronic Assessment and plan: Smoking cessation counseling, nicotine patch (7) History of CVA with residual deficit Current Visit: Yes Status: Chronic (8) Hyperlipidemia Current Visit: Yes Status: Chronic Assessment and plan: Lipid panel unremarkable, recommend low-cholesterol diet and continuation of statin Qualifiers: Hyperlipidemia type: unspecified Qualified Code(s): E78.5 - Hyperlipidemia , unspecified (9) Hypertension Current Visit: Yes Status: Chronic Assessment and plan: Controlled/borderline hypertensive, we will continue to trend and adjust medications as indicated. Qualifiers: Hypertension type: essential hypertension Qualified Code(s): I10 - Essential (primary) hypertension (10) Occlusion of left internal carotid artery Current Visit: Yes Status: Chronic (11) Stenosis of right internal carotid artery Current Visit: Yes Status: Chronic - Subjective Interval history: Patient seen and examined. On examination, patient alert and oriented 3. She is sitting upright in bed drinking coffee. She states she ate all of her breakfast. She states her leg pain is controlled at this time and she denies further concerns. - Constitutional Vitals: Temp Pulse Resp BP Pulse Ox 98.3 F 83 16 148/89 98 11/30/16 07:25 11/30/16 07:25 11/30/16 07:25 11/30/16 07:25 11/30/16 07:25 General appearance: Present: cooperative, A&O X 3, pleasant, no acute distress, answers questions appropriately - Head Head exam: Present: atraumatic, normocephalic - Eye Eye exam: Present: PERRL, conjuntiva pink, sclera anicteric Pupils: Present: PERRL - Neck Neck exam general surgery: Present: supple, trachea midline. Absent: lymphadenopathy - Respiratory Respiratory exam: Present: decreased breath sounds. Absent: accessory muscle use, rales, respiratory distress, rhonchi, wheezes - Cardiovascular Cardiovascular exam: Present: RRR, +S1, +S2. Absent: diastolic murmur, gallop, rubs, systolic murmur - GI/Abdominal GI/Abdominal exam: Present: normal bowel sounds, soft, no peritoneal signs. Absent: distended, tenderness - Extremities Exam Extremities exam: Present: warm, radial pulses palpable and symetrical. Absent : calf tenderness, cyanotic, pedal edema - Neurological Exam Neurological exam: Present: CN II-XII intact, motor sensory deficit, oriented X3 , pronater drift, facial droop, speech deficit. Absent: normal gait, no focal deficits, strengths equal and symetr throughout - Expanded Neurological Exam Neurological exam expanded: Present: protecting the airway Patient oriented to: Present: person, place, time Speech: Present: fluid speech, slurred Cranial Nerves: EOM's intact PM: Normal Neuro motor strength exam: LUE: 5, RUE: 2/1, LLE: 5, RLE: 2/1 Coma Scale Eye Opening: Spontaneous Coma Scale Motor Response: Obeys Commands Coma Scale Verbal Response: Oriented Coma Scale Total: 15 - Skin Skin exam: Present: dry, intact, normal color, warm Internal Medicine: Result - Labs CBC & Chem 7: 11/28/16 19:10 11/28/16 19:09 - ABG Interpretation ABG results: PT/INR, D-dimer PT 11.3 Seconds (9.4-12.1) 11/29/16 03:16 D-Dimer 449 ng/mLFEU (0-500) 11/29/16 03:16 Consult Discharge Plan - Plan Referrals: Alivia Worthy MD [Primary Care Provider] -
--- NOTE | 2016-11-30 12:46 | ECHO - Doppler Report ---
Echo with Saline Contrast Name: Angie Daigle Date of Study: 11/30/2016 Date: 1955 Ht: 64.0 in Medical Record#: [id number] Age: 61 Wt: 124.0 lb Gender: Female BSA: 1.6 Order #: [id number] Location: [facility] Room #: [facility] [place] Reading Physician: Domi Sweeney DO Humanities Professor: Mannie Argueta RN Ordering Physician: Manish Rust MD Primary Physician: Alivia Worthy MD Indications: Transient Ischemic Attack Impressions: LVEF 55%. Normal left ventricular size and systolic function. There is evidence of mild diastolic dysfunction of the left ventricle. Normal right ventricular size and function. No significant valvular dysfunction. No pulmonary hypertension. No PFO with saline contrast. Left Ventricular Wall Motion: Rest Echo Findings The apex, apical inferior, mid inferior, basal inferior, apical anterior, mid anterior and basal anterior mcghee were not visualized. All other wall segments showed normal motion. Findings: Study Quality * Technically adequate exam. ECG Findings * Normal sinus rhythm. Left Ventricle * Mild left ventricular diastolic dysfunction. * LVEF 55%. * Normal LV chamber size, wall thickness and function. Aortic Valve * No aortic regurgitation. * Trileaflet aortic valve. * Normal aortic valve structure. * No aortic stenosis. Mitral Valve * No mitral regurgitation. * Normal mitral valve structure. * No mitral stenosis. Tricuspid Valve * Tricuspid valve not well visualized. * No tricuspid regurgitation. * Estimated RA pressure is 3 mmHg. Pulmonic Valve * Pulmonic valve is not well visualized. * No pulmonic stenosis. * No pulmonic regurgitation. Pulmonary Artery * Pulmonary artery not well visualized. Right Ventricle * Normal right ventricular structure and function. Left Atrium * Normal left atrial size. Right Atrium * Normal right atrial size. Interatrial Septum * No evidence of PFO by color Doppler. * No evidence of PFO with agitated saline contrast. IVC * Normal IVC dimensions and inspiratory collapse. Pericardium * There is no pericardial effusion present. Aorta * Normally sized aortic root. History Hypertension Hypercholesteremia History of Smoking Years 15 Packs 1 Contrast: Agitated saline 20 ml. Measurements: BP: 148/ 89 2D Normal Values IVSd: 1.00 cm 0.6 - 1.0 cm LVIDd: 3.40 cm 3.7 - 5.6 cm LVPWd: 1.00 cm 0.6 - 1.1 cm LVIDs: 2.30 cm 1.5 - 3.6 cm LA: 2.80 cm 2.0 - 4.0cm %FS: 32.40 cm >25 % LVOT Diam: 1.80 cm LA volume: 38 Mitral Valve Peak E:.59 m/sec Peak A:1.01 m/sec E/A Ratio:0.6 Peak E' Lat Ramez:6.53 cm/s Peak E' Med Ramez:4.39 cm/s E/E' Lat Ratio:9 E/E' Med Ratio:13.4 Updated by Domi Sweeney on 11/30/2016 12:41:31 PM electronically signed on 11/30/2016 12:42:22 PM with status of Final Wall Motion Johansen: 1=Normal, 2=Hypokinesis, 3=Akinesis, 4=Dyskinesis, 5=Aneurysmal, 6=Hyperkinetic, X=Not Visualized (Blank)=Missing
--- NOTE | 2016-11-30 17:00 | Vascular/Endovas Progress Note ---
Date of Encounter: 11/30/16 Time of Encounter: 16:00 - Assessment and plan (1) Stenosis of right internal carotid artery Current Visit: Yes Status: Chronic The patient has a VETO >90% stenosis by duplex and CTA. He LICA is occluded. She previously sustained a left hemispheric CVA with residual motor deficits in the right upper and lower extremity. She has not had any acute symptoms overnight. She has been scheduled for a right carotied endarterectomy tomorrow. The risks, benefits and alternatives were discussed and all questions were answered. The patient expressed understanding and wishes to proceed. (2) Occlusion of left internal carotid artery Current Visit: Yes Status: Chronic (3) Current every day smoker Current Visit: Yes Status: Chronic (4) History of CVA with residual deficit Current Visit: Yes Status: Chronic (5) Hyperlipidemia Current Visit: Yes Status: Chronic Qualifiers: Hyperlipidemia type: unspecified Qualified Code(s): E78.5 - Hyperlipidemia , unspecified (6) Hypertension Current Visit: Yes Status: Chronic Qualifiers: Hypertension type: essential hypertension Qualified Code(s): I10 - Essential (primary) hypertension - Subjective Interval history: She reports that she is comfortble. No acute issues overnight. She denies any chest pain or shortness of breath. Vital Signs, Last 4 Hours Temp Pulse Resp BP Pulse Ox 11/30/16 16:12 98.1 F 94 16 146/89 96 - Physical Examination General: Present: Conversant HEENT: Present: Atraumatic, Normocephaly, Trachea midline, Pupils equal Neck: Present: Right Carotid bruit. Absent: JVD, Lymphadenopathy, Left Carotid bruit Cardiac: Present: Reg Rate and Rhythm, Normal S1 and S2 Lungs: Present: Normal Breath Sounds, No Wheeze, Rales, Rhonchi Neuro: Present: Alert and responsive, Cranial nerves grossly intact, Sensory nerves grossly intact, Other (Motor 0/5 right upper extremity, 3+/5 right lower extremity, Left 5/5) Vascular: Present: Normal capillary refill. Absent: Clubbing, Cyanosis, Edema Abdomen: Present: Soft, Non-tender. Absent: Masses Skin: Present: No rashes noted on visualized skin Results 11/28/16 19:10 11/28/16 19:09 Consult Discharge Plan - Plan Referrals: Alivia Worthy MD [Primary Care Provider] -
[2016-11-30] MEDS: 0.9 % Sodium Chloride 1,000 ML IVC SCH (21:30)
--- NOTE | 2016-11-30 21:47 | Anesthesia Evaluation PreOp ---
Date of Encounter: 11/30/16 Time of Encounter: 22:43 - Past History Planned Operation: R-CEA Cardiac History: HTN (maintained on Lisinopril), Hyperlipidemia (maintained on Lipitor), Other (PVD maintained on ASA & Plavix. 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 R-sided facial droop, dysrarthria, R/UE & LE paralysis, urinary incontinence.), TIA (R-ICA >90% stenosis), Paresis (R-sided hemiplegia) , Other (RLE/RUE muscle contracture & Chronic pain maintained on Baclofen) Other Medical History: Denies Any Significant HX, GERD (miantained on Pepcid) Anesthesia History: No Prior Anesthetic Complications, Past Anesthesia (ORIF R- hip 2014, BLE revascularization w/stents, Partial Hyster) Alcohol Use: none Drug use: none Medications and Allergies Atorvastatin Calcium [Lipitor] 40 mg PO HS 11/07/16 [History] Clopidogrel [Plavix] 75 mg PO DAILY 11/07/16 [History] Famotidine [Pepcid] 20 mg PO Q12H 11/07/16 [History] Lisinopril [Zestril] 5 mg PO DAILY 11/07/16 [History] Aspirin 81 mg PO DAILY 11/28/16 [History] Baclofen 20 mg PO DAILY 11/28/16 [History] Zolpidem [Ambien] 10 mg PO HS 11/28/16 [History] Allergies No Known Allergies Allergy (Verified 11/07/16 19:18) - Meds/Allergy Pre-op Review Medications Reviewed: Yes Allergies Reviewed: Yes Beta Blockers on Current Med List: No Anesthesia Results - Labs 11/28/16 19:10 11/28/16 19:09 Laboratory Tests 11/28/16 11/29/16 11/29/16 19:09 03:16 03:16 PT 11.3 INR 1.0 APTT 31.4 D-Dimer 449 Factor V Leiden Interp Est GFR (Non-Af Amer) > 60 Est Mean Plasma Glucose 97 Hemoglobin A1c 5.0 11/29/16 03:16 PT INR APTT D-Dimer Factor V Leiden Interp Normal Est GFR (Non-Af Amer) Est Mean Plasma Glucose Hemoglobin A1c Anesthesia Exam Vital Signs Temp Pulse Resp BP Pulse Ox 11/30/16 19:53 98.7 F 93 16 131/83 98 11/30/16 16:12 98.1 F 94 16 146/89 96 11/30/16 07:25 98.3 F 83 16 148/89 98 11/30/16 04:01 98.4 F 78 17 140/89 95 11/29/16 23:48 98.1 F 79 17 170/106 96 Intake and Output 11/30/16 11/30/16 11/30/16 07:59 15:59 23:59 Intake Total 480 / 480 1400 / 1400 Output Total 250 / 250 600 / 600 Balance -250 / -250 -120 / -120 1400 / 1400 Intake: IV Fluids 1000 / 1000 0.9 % Sodium Chloride 1, 1000 / 1000 000 ML @ 50 mls/hr IVC . 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 - MD Paxton
[2016-12-01] MEDS: Famotidine 20 MG TABLET PO SCH (05:58)
[2016-12-01] MEDS: *HR* Enoxaparin 40 MG/0.4 ML SYRINGE SQ SCH (05:59)
[2016-12-01] MEDS: Nicotine 21 MG PATCH.TD24 TD SCH (09:03)
[2016-12-01] MEDS: Baclofen 10 MG TABLET PO SCH ×2 (09:03→23:31)
[2016-12-01] MEDS: *HR* OxyCODONE Immed Rel 5 MG TABLET PO PRN (09:04)
[2016-12-01 11:35] LABS: Homocysteine 15 umol/L (<=10)
[2016-12-01] MEDS ORDERED: Heparin 1,000 UNITS/500 mL NS 0 ML ONE (11:35)
[2016-12-01] MEDS ORDERED: *HR* Remifentanil 1 MG VIAL IVP ONE (11:45)
[2016-12-01] MEDS ORDERED: *HR* Propofol 200 MG/20 ML VIAL IVP ONE (11:45)
[2016-12-01] MEDS ORDERED: Lidocaine -MPF 2% 2 ML VIAL ONE ×3 (11:49→12:57)
[2016-12-01] MEDS ORDERED: *HR* FentaNYL (PF) 100 MCG/2 ML VIAL ONE (11:51)
[2016-12-01] MEDS ORDERED: *HR* Succinylcholine 200 MG/10 ML VIAL IVP ONE (11:52)
[2016-12-01] MEDS ORDERED: Heparin 1,000 UNITS/500 mL NS 500 ML ONE ×2 (11:57→13:41)
[2016-12-01] MEDS ORDERED: Lidocaine -MPF 4% 5 ML AMPUL ONE (12:00)
[2016-12-01] MEDS ORDERED: Neostigmine Methylsulfate 3 MG/3 ML SYRINGE ONE (12:59)
[2016-12-01] MEDS ORDERED: Esmolol 100 MG/10 ML VIAL IVP ONE (13:00)
[2016-12-01] MEDS ORDERED: *HR* HYDROmorphone 2 MG/ML SYRINGE ONE (13:14)
[2016-12-01] MEDS ORDERED: *HR* Labetalol 20 MG/4 ML SYRINGE IVP ONE (13:16)
[2016-12-01] MEDS ORDERED: Famotidine 20 MG/2 ML VIAL ONE (13:28)
[2016-12-01] MEDS ORDERED: Lidocaine 1% 20 ML MDV ONE (13:41)
[2016-12-01] MEDS ORDERED: Vancomycin 1,000 MG VIAL ONE ×2 (13:41→14:20)
[2016-12-01] MEDS ORDERED: Protamine Sulfate 50 MG/5 ML VIAL IVP ONE (13:41)
[2016-12-01] MEDS ORDERED: Bupivacaine-MPF 0.25% 10 ML VIAL ONE (13:41)
--- NOTE | 2016-12-01 13:58 | Anesthesia Procedures ---
Date of Encounter: 12/01/16 Time of Encounter: 13:30 Procedures: Anesthesia - Arterial Line Consent obtained: written consent Time out performed: Yes Sedation: Fentanyl (mcg): 100 Local Anesthetic: Lidocaine 1% Amount of Anesthetic used (mls): 2 Size (Gauge): 20 Length (inches): 1 3/4 Technique Used: sterile prep, guide wire technique, direct puncture technique Post-Procedure: line taped into place Patient tolerated procedure: no complications Complications: none Site: Radial L Vitals: Vital Signs/O2 Sat/Glucose, Most Current Temp Pulse Resp BP Pulse Ox 12/01/16 11:45 97.2 F L 89 16 147/86 95
[2016-12-01] MEDS ORDERED: *HR* Rocuronium Bromide 50 MG/5 ML VIAL ONE (14:27)
--- NOTE | 2016-12-01 14:50 | Internal Med Progress Note ---
Date of Encounter: 12/01/16 Time of Encounter: 11:45 - Assessment and plan (1) Carotid stenosis, symptomatic w/o infarct Current Visit: Yes Status: Acute Assessment and plan: Patient with total occlusion of her left internal carotid artery with subsequent left MCA infarct leading to residual right-sided weakness, right- sided facial droop. Patient is at highly increased risk of a repeat CVA given that her right ICA is greater than 90% occluded. Patient has an elevated risk for stroke, , further morbidity and she will be watched closely inpatient with right-sided carotid endarterectomy planned for later today per vascular surgery. We will continue Plavix and hold aspirin at vascular surgery's recommendation. OT and PT are on board and have recommended inpatient swing bed. As the patient does not currently have insurance, disposition to be determined pending Medicaid application. FH Is approved, she will likely be transferred to [place] inpatient swing bed, if it is not, she will likely be placed at [facility] after her Medicaid application is confirmed. hvac services professional on board. ITS Impressions Neck CTA 11/28/16 18:24 IMPRESSION: Complete occlusion of the left internal carotid artery at the origin. Approximately 90% diameter stenosis involving the midportion of the right internal carotid artery. Moderate-sized old left MCA infarct. D/ / 11/28/2016 20:53:28 Kendrick Montemayor MD / stephon Interpreting Provider: Kendrick Montemayor MD Qualifiers: Laterality: right Qualified Code(s): I65.21 - Occlusion and stenosis of right carotid artery (2) Carotid stenosis, symptomatic, with infarction Current Visit: Yes Status: Chronic Assessment and plan: Patient with total occlusion of left ICA and subsequent MCA infarct 2-1/2 months ago in August 2016. Residual right-sided weakness and right-sided facial drooping. We will continue statin and Plavix, hold aspirin. 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 Current Visit: Yes Status: Chronic Assessment and plan: Continue baclofen, OT and PT are on board (6) Current every day smoker Current Visit: Yes Status: Chronic Assessment and plan: Smoking cessation counseling, nicotine patch (7) History of CVA with residual deficit Current Visit: Yes Status: Chronic (8) Hyperlipidemia Current Visit: Yes Status: Chronic Assessment and plan: Lipid panel unremarkable, recommend low-cholesterol diet and continuation of statin Qualifiers: Hyperlipidemia type: unspecified Qualified Code(s): E78.5 - Hyperlipidemia , unspecified (9) Hypertension Current Visit: Yes Status: Chronic Assessment and plan: Controlled/borderline hypertensive, we will continue to trend and adjust medications as indicated. Qualifiers: Hypertension type: essential hypertension Qualified Code(s): I10 - Essential (primary) hypertension (10) Occlusion of left internal carotid artery Current Visit: Yes Status: Chronic (11) Stenosis of right internal carotid artery Current Visit: Yes Status: Chronic - Subjective Interval history: Patient seen and examined. On examination, patient alert and oriented 3. She is sitting upright in her chair conversing with social media community manager to establish a POA as well as with her son and [id number]. She states she is having pain to her right lower extremity. She has no questions or concerns regarding her upcoming procedure. - Constitutional Vitals: Temp Pulse Resp BP Pulse Ox 97.2 F L 89 16 147/86 95 12/01/16 11:45 12/01/16 11:45 12/01/16 11:45 12/01/16 11:45 12/01/16 11:45 General appearance: Present: cooperative, A&O X 3, pleasant, no acute distress, answers questions appropriately - Head Head exam: Present: atraumatic, normocephalic - Eye Eye exam: Present: PERRL, conjuntiva pink, sclera anicteric Pupils: Present: PERRL - Neck Neck exam general surgery: Present: supple, trachea midline. Absent: lymphadenopathy - Respiratory Respiratory exam: Present: decreased breath sounds. Absent: accessory muscle use, rales, respiratory distress, rhonchi, wheezes - Cardiovascular Cardiovascular exam: Present: RRR, +S1, +S2. Absent: diastolic murmur, gallop, rubs, systolic murmur - GI/Abdominal GI/Abdominal exam: Present: normal bowel sounds, soft, no peritoneal signs. Absent: distended, tenderness - Extremities Exam Extremities exam: Present: warm, radial pulses palpable and symetrical. Absent : calf tenderness, cyanotic, pedal edema - Neurological Exam Neurological exam: Present: alert, CN II-XII intact, oriented X3, pronater drift , facial droop, speech deficit. Absent: normal gait, strengths equal and symetr throughout (Right-sided hemiparesis, chronic) - Skin Skin exam: Present: dry, intact, normal color, warm Internal Medicine: Result - Labs CBC & Chem 7: 11/28/16 19:10 11/28/16 19:09 - ABG Interpretation ABG results: PT/INR, D-dimer PT 11.3 Seconds (9.4-12.1) 11/29/16 03:16 D-Dimer 449 ng/mLFEU (0-500) 11/29/16 03:16 Consult Discharge Plan - Plan Referrals: Alivia Worthy MD [Primary Care Provider] - 12/06/16 9:00 am Jeramy Shaver MD [Partnered Physician] - 01/08/17 1:00 pm
[2016-12-01] MEDS ORDERED: Ondansetron 4 MG/2 ML VIAL ONE (15:12)
[2016-12-01] MEDS ORDERED: Dexamethasone 4 MG/ML VIAL ONE (15:12)
[2016-12-01] MEDS ORDERED: *HR* Heparin 5,000 UNIT/ML VIAL ONE (15:14)
[2016-12-01] MEDS ORDERED: *HR* Phenylephrine 10 MG/ML VIAL ONE (15:31)
[2016-12-01] MEDS ORDERED: NiCARdipine 2.5 MG/10 ML Syringe IVPB ONE (15:36)
[2016-12-01] MEDS ORDERED: *HR* Labetalol 100 MG/20 ML MDV IVP PRN (16:20)
--- NOTE | 2016-12-01 17:08 | Operative Note ---
Date of procedure: 12/01/16 Pre-op diagnosis: 80-99% Right internal carotid artery stenosis Post-op diagnosis: same Procedure: Right carotid endarterectomy with hemashield patch angioplasty. Complications: None Anesthesia: OSVALDOA Surgeon: Jeramy Shaver Estimated blood loss (cc): 100 Specimen: Right carotid plaque Condition: stable Disposition: PACU Procedure in Detail: Indications: The patient is a 61 year old female who was found to have a greater than 90% right internal carotid artery stenosis. She has a known left internal carotid artery occlusion and a prior left hemispheric CVA with right upper extremity paralysis and right lower extremity weakness. A right carotid endarterectomy was recommended to reduce his risk of a right hemispheric stroke. Procedure: The patient was identified in the preoperative area. The risks, benefits, and alternatives of the procedure were discussed and all questions were answered. The patient was then taken to the operating room and placed in supine position on the operating table. After induction of general endotracheal anesthesia, the patient was cleaned and draped in normal sterile fashion. A longitudinal incision was made anterior to the right sternocleidomastoid muscle. Hemostasis was obtained via electrocautery. Then through a process of blunt, sharp, and electrocautery dissection, the platysma was traversed. The jugular vein was identified and dissected along it's course. The facial vein was dissected, then clamped, divided and tied off with a 2-0 silk suture ligature. The jugular vein was retracted, exposing the carotid bifurcation. The patient received 2000 units of heparin intravenously at this time. Proximal dissection of the common and external carotid arteries were performed circumferentially. Dissection of the internal carotid was performed circumferentially. Vessels loops were passed around the internal and external carotid and an umbilical tape was passed from the common carotid artery. The patient received additional 3000 units of heparin intravenously. After waiting adequate time for the heparin to circulate, the vessels were occluded and a longitudinal arteriotomy was made into the common carotid artery. It was then extended into the internal carotid beyond the plaque. Vigorous pulsatile retrograde flow was noted from the internal carotid artery upon release of the loop; therefore, no shunt was placed. A dental freer was used to perform a standard endarterectomy. Proximal and distal endpoints were inspected. No elevated flaps were noted. A Hemashield patch was cut to fit the defect and sutured in place with running 6 -0 Prolene. Prior to completing the closure, each vessel was flushed and then reoccluded. Heparinized saline was infused into the lumen. The patch was completed. Flow was restored in the external carotid artery, followed the common carotid artery, lastly the internal carotid artery was opened. A low resistance arterialized signal was present within the internal carotid artery beyond the patch. Thrombin and Gelfoam were used to aid in hemostasis. Meticulous hemostasis was obtained throughout the wound with electrocautery. Upon obtaining hemostasis with suture, platelet rich and platelet poor plasma were infused into the wounds. The sternocleidomastoid was reapproximated with interrupted 3-0 Vicryl. Platelet rich and platelet poor plasma were infused into the wound. A TLS drain was brought through a separate stab incision and sutured in place with 0 silk suture. The platysma was reapproximated with running 3-0 Vicryl. Local anesthetic was infused in the skin. A 3-0 Monocryl was used to reapproximate the skin. Sterile dressing was applied. The patient was extubated, taken to the recovery room in stable condition.
[2016-12-01] MEDS: *HR* Promethazine 25 MG/ML VIAL IVP PRN ×2 (17:10→17:15)
[2016-12-01] MEDS: *HR* HYDROmorphone (PF) 1 MG/ML SYRINGE IVP PRN ×2 (17:35→17:40)
--- NOTE | 2016-12-01 18:06 | Anesthesia Evaluation Post Op ---
Date of Encounter: 12/01/16 Time of Encounter: 18:10 - Vital Signs Vital Signs: Vital Signs/O2 Sat/Glucose, Most Current Temp Pulse Resp BP Pulse Ox 12/01/16 18:02 69 12 91/55 99 12/01/16 17:52 98.7 F 72 12 90/57 99 12/01/16 17:42 71 16 94/58 100 12/01/16 17:32 69 16 95/62 100 12/01/16 17:22 98.6 F 79 16 95/68 97 12/01/16 17:12 71 16 85/54 97 12/01/16 17:02 66 16 108/57 97 12/01/16 16:52 98.7 F 70 16 109/73 100 - Lungs Lungs: Clear Ascult./Percussion - Airway Airway: Non-obstructed - Cardiovascular Regular Rate - Mental Status Mental Status: Alert & Oriented, Answers Appropriately - Pain Pain Scale: 0 - Nausea Vomiting Nausea Vomiting: Not Present - Hydration Hydration: Ice chips - Discharge PostOp Status: Transfer Patient to floor
[2016-12-01] MEDS ORDERED: *HR* Labetalol 20 MG/4 ML SYRINGE IVP PRN (19:27)
[2016-12-01] MEDS ORDERED: Acetaminophen 325 MG TABLET PO PRN ×2 (19:27)
[2016-12-01] MEDS ORDERED: *HR* Morphine 2 MG/ML SYRINGE IVP PRN (19:27)
[2016-12-01] MEDS ORDERED: Naloxone 0.4 MG/ML INJ IVP PRN (19:27)
[2016-12-01] MEDS ORDERED: Ondansetron 4 MG/2 ML VIAL IVP PRN (19:27)
[2016-12-01 19:30] LABS: APTT (LE Anticoag) 39 sec (32-48); Diluted Russell Viper Venom 34 sec (33-44); PT (LE-Anticoag) 12.6 sec (12.0-15.5)
[2016-12-01] MEDS ORDERED: Acetaminophen IV 500 MG/50 ML INFUS..BTL IVPB PRN (19:31)
[2016-12-01] MEDS: *HR* Metoprolol 5 MG/5 ML VIAL IVP SCH ×2 (19:49→23:37)
[2016-12-01] MEDS: 0.9 % Sodium Chloride 1,000 ML IVC SCH (20:04)
[2016-12-01] MEDS: ceFAZolin 2,000 MG in D5% in Water 100 ML IVPB SCH (23:42)
[2016-12-02] MEDS ORDERED: Acetaminophen IV 500 MG/50 ML INFUS..BTL IVPB SCH
[2016-12-02] MEDS ORDERED: Vancomycin 1,000 MG in D5% in Water 250 ML IVPB ONE (02:00)
[2016-12-02] MEDS: *HR* HYDROcodone/Acet 5/325 mg TABLET PO PRN ×3 (03:48→16:02)
[2016-12-02] MEDS: *HR* Metoprolol 5 MG/5 ML VIAL IVP SCH (06:00)
[2016-12-02] MEDS: Famotidine 20 MG TABLET PO SCH ×2 (06:16→17:13)
[2016-12-02] MEDS: ceFAZolin 2,000 MG in D5% in Water 100 ML IVPB SCH (06:16)
[2016-12-02] MEDS: *HR* Heparin 5,000 UNIT/ML VIAL SQ SCH ×2 (07:36→17:13)
[2016-12-02] MEDS: Baclofen 10 MG TABLET PO SCH ×3 (08:04→21:54)
[2016-12-02] MEDS: Nicotine 21 MG PATCH.TD24 TD SCH (08:05)
--- NOTE | 2016-12-02 08:05 | Vascular/Endovas Progress Note ---
Date of Encounter: 12/02/16 Time of Encounter: 07:45 Discussion with patient/family: I had discussion with patient about TLS drain removal. She also understands that she is awaiting placement for rehabilitation. - Subjective Procedure(s) Performed: Right carotid endarterectomy Interval history: The patient underwent right carotid endarterectomy yesterday. She has done well since surgery. She has a baseline dense right hemiparesis secondary to left internal carotid artery occlusion. The right neck incision is without swelling. The TLS drain has perhaps 3 mL of fluid. The TLS drain is removed. Neurologic examination demonstrates left hand and left leg are normal facial muscles are normal. She has a dense right hemiparesis which is her baseline. The patient is ready for rehabilitation from vascular surgery standpoint. Successful right carotid endarterectomy with no neurologic deficit. - Physical Examination General: Present: No Apparent Distress, Well developed HEENT: Present: Trachea midline Neck: Present: Other (The right neck is without swelling. The incision is intact. TLS drain removed) Cardiac: Present: Reg Rate and Rhythm, Normal S1 and S2 Lungs: Present: Normal Breath Sounds Neuro: Present: Alert and responsive, Other (Dense right hemiparesis right upper extremity right lower extremity. Otherwise intact) Abdomen: Present: Soft, Non-tender - VTE Documentation of Mechanical Device: Intermittent pneumatic compression device Results 11/28/16 19:10 11/28/16 19:09 Consult Discharge Plan - Plan Referrals: Alivia Worthy MD [Primary Care Provider] - 12/06/16 9:00 am Jeramy Shaver MD [Partnered Physician] - 01/08/17 1:00 pm
--- NOTE | 2016-12-02 08:48 | Internal Med Progress Note ---
Date of Encounter: 12/02/16 Time of Encounter: 08:46 - Assessment and plan (1) Stenosis of right internal carotid artery Current Visit: Yes Status: Acute Assessment and plan: Patient was noted to have 90% stenosis of right internal carotid artery, vascular surgery on board, underwent right carotid endarterectomy-postoperative day one. Postoperative recovery uneventful. Postoperative case according to vascular surgery. Continue diet as tolerated and supportive care. Continue Plavix and statin. Awaiting placement to inpatient rehabilitation. (2) Current every day smoker Current Visit: Yes Status: Chronic Assessment and plan: Noted to be on nicotine transdermal patch, continue the same. (3) History of CVA with residual deficit Current Visit: Yes Status: Chronic Assessment and plan: History of left MCA infarct with dense right-sided hemiparesis. Continue Plavix and statin. Awaiting placement to inpatient rehabilitation. (4) Hyperlipidemia Current Visit: Yes Status: Chronic Qualifiers: Hyperlipidemia type: unspecified Qualified Code(s): E78.5 - Hyperlipidemia , unspecified (5) Hypertension Current Visit: Yes Status: Chronic Qualifiers: Hypertension type: essential hypertension Qualified Code(s): I10 - Essential (primary) hypertension - Subjective Interval history: Feels well. Postoperative neck Pain is fairly controlled. No swelling or bleeding from the incision. TLC drain has been removed by vascular surgery this morning. No dysphagia, able to tolerate diet. - Constitutional Vitals: Temp Pulse Resp BP Pulse Ox 98.1 F 80 17 114/77 96 12/02/16 03:28 12/02/16 03:28 12/02/16 03:28 12/02/16 03:28 12/02/16 03:28 General appearance: Present: A&O X 3, answers questions appropriately - Neck Neck exam general surgery: Present: tenderness (Right neck vertical surgical incision, wound healing well. No bleeding, erythema or swelling. Mildly tender.), supple, trachea midline. Absent: lymphadenopathy - Respiratory Respiratory exam: Present: CTAB. Absent: accessory muscle use, rales, rhonchi, wheezes - Cardiovascular Cardiovascular exam: Present: RRR, +S1, +S2. Absent: diastolic murmur, gallop, rubs, systolic murmur - Neurological Exam Neurological exam: Present: CN II-XII intact, oriented X3, no focal deficits ( Left-sided facial droop), strengths equal and symetr throughout (Dense right- sided hemiparesis). Absent: pronater drift, facial droop, speech deficit Internal Medicine: Result - Labs CBC & Chem 7: 11/28/16 19:10 11/28/16 19:09 - ABG Interpretation ABG results: PT/INR, D-dimer PT 11.3 Seconds (9.4-12.1) 11/29/16 03:16 D-Dimer 449 ng/mLFEU (0-500) 11/29/16 03:16 - VTE Documentation of Mechanical Device: Intermittent pneumatic compression device Consult Discharge Plan - Plan Referrals: Alivia Worthy MD [Primary Care Provider] - 12/06/16 9:00 am Jeramy Shaver MD [Partnered Physician] - 01/08/17 1:00 pm
[2016-12-02] MEDS: 0.9 % Sodium Chloride 1,000 ML IVC SCH (17:14)
[2016-12-02] MEDS: *HR* OxyCODONE Immed Rel 5 MG TABLET PO PRN (21:54)
[2016-12-03] MEDS: Famotidine 20 MG TABLET PO SCH ×2 (04:25→17:54)
[2016-12-03] MEDS: *HR* OxyCODONE Immed Rel 5 MG TABLET PO PRN ×4 (04:25→21:04)
--- NOTE | 2016-12-03 07:29 | Vascular/Endovas Progress Note ---
Date of Encounter: 12/03/16 Time of Encounter: 07:20 - Assessment and plan (1) Stenosis of right internal carotid artery Current Visit: Yes Status: Acute The patient is postoperative day 2 for right carotid endarterectomy. Stable. Awaiting placement in rehabilitation. Discussion with patient/family: The patient understands that she will be in the hospital today awaiting placement in rehabilitation likely help Sunday. - Subjective Interval history: The patient underwent right carotid endarterectomy yesterday. She has done well since surgery. She has a baseline dense right hemiparesis secondary to left internal carotid artery occlusion. The right neck incision is without swelling. The TLS drain has perhaps 3 mL of fluid. The TLS drain is removed. Neurologic examination demonstrates left hand and left leg are normal facial muscles are normal. She has a dense right hemiparesis which is her baseline. The patient is ready for rehabilitation from vascular surgery standpoint. Successful right carotid endarterectomy with no neurologic deficit. 12/03/2016: The patient is seen and evaluated. The patient is postop day 2 from right carotid endarterectomy. She did well last evening with no new neurologic deficit. She continues to have dense right hemiparesis from previous left internal carotid artery occlusion. The right carotid endarterectomy site is intact with no evidence of swelling or erythema. The left upper and left lower extremity is intact. She is not complaining of any pain. Vital Signs, Last 4 Hours Temp Pulse Resp BP Pulse Ox 12/03/16 07:20 97.8 F 71 18 117/72 95 12/03/16 04:22 97.8 F 91 18 151/93 97 - Physical Examination General: Present: Conversant, No Apparent Distress HEENT: Present: Trachea midline, Other (No erythema or neck swelling. Incision intact) Cardiac: Present: Reg Rate and Rhythm, Normal S1 and S2 Lungs: Present: Normal Breath Sounds Neuro: Present: Other (Fixed demonstrates right hemiparesis stable. No new neurologic findings. Left upper and lower extremities is intact.) Abdomen: Present: Soft - VTE Documentation of Mechanical Device: Intermittent pneumatic compression device Results 11/28/16 19:10 11/28/16 19:09 Consult Discharge Plan - Plan Referrals: Alivia Worthy MD [Primary Care Provider] - 12/06/16 9:00 am Jeramy Shaver MD [Partnered Physician] - 01/08/17 1:00 pm
--- NOTE | 2016-12-03 08:17 | Internal Med Progress Note ---
Date of Encounter: 12/03/16 Time of Encounter: 08:15 - Assessment and plan (1) Stenosis of right internal carotid artery Current Visit: Yes Status: Acute Assessment and plan: Patient was noted to have 90% stenosis of right internal carotid artery, vascular surgery on board, underwent right carotid endarterectomy-postoperative day two. Postoperative recovery uneventful. Postoperative case according to vascular surgery. Continue diet as tolerated and supportive care. Continue Plavix and statin. Awaiting placement to inpatient rehabilitation. (2) Current every day smoker Current Visit: Yes Status: Chronic Assessment and plan: Noted to be on nicotine transdermal patch, continue the same. (3) History of CVA with residual deficit Current Visit: Yes Status: Chronic Assessment and plan: History of left MCA infarct with dense right-sided hemiparesis. Continue Plavix and statin. Awaiting placement to inpatient rehabilitation. (4) Hyperlipidemia Current Visit: Yes Status: Chronic Assessment and plan: Lipid panel unremarkable, recommend low-cholesterol diet and continuation of statin Qualifiers: Hyperlipidemia type: unspecified Qualified Code(s): E78.5 - Hyperlipidemia , unspecified (5) Hypertension Current Visit: Yes Status: Chronic Qualifiers: Hypertension type: essential hypertension Qualified Code(s): I10 - Essential (primary) hypertension - Subjective Interval history: Reports right neck pain at surgical site; able to swallow well, has baseline right facial droop and dripping fluids while drinking; baseline right-sided hemiplegia; no nausea, vomiting, dyspnea, chest pain; - Constitutional Vitals: Temp Pulse Resp BP Pulse Ox 97.8 F 71 18 117/72 95 12/03/16 07:20 12/03/16 07:20 12/03/16 07:20 12/03/16 07:20 12/03/16 07:20 General appearance: Present: A&O X 3, answers questions appropriately - Neck Neck exam general surgery: Present: full ROM (Restricted flexion due to right- sided postoperative neck pain. Postoperative wound healing well, no active bleeding, mild surrounding edema.), supple, trachea midline. Absent: lymphadenopathy - Respiratory Respiratory exam: Present: CTAB. Absent: accessory muscle use, rales, rhonchi, wheezes - Cardiovascular Cardiovascular exam: Present: RRR, +S1, +S2. Absent: diastolic murmur, gallop, rubs, systolic murmur Internal Medicine: Result - Labs CBC & Chem 7: 11/28/16 19:10 11/28/16 19:09 - ABG Interpretation ABG results: PT/INR, D-dimer PT 11.3 Seconds (9.4-12.1) 11/29/16 03:16 D-Dimer 449 ng/mLFEU (0-500) 11/29/16 03:16 - VTE Documentation of Mechanical Device: Intermittent pneumatic compression device Consult Discharge Plan - Plan Referrals: Alivia Worthy MD [Primary Care Provider] - 12/06/16 9:00 am Jeramy Shaver MD [Partnered Physician] - 01/08/17 1:00 pm
[2016-12-03] MEDS: Baclofen 10 MG TABLET PO SCH ×3 (08:20→21:03)
[2016-12-03] MEDS: *HR* Heparin 5,000 UNIT/ML VIAL SQ SCH ×2 (08:20→17:57)
[2016-12-03] MEDS: Nicotine 21 MG PATCH.TD24 TD SCH (08:21)
[2016-12-03] MEDS: *HR* HYDROcodone/Acet 5/325 mg TABLET PO PRN ×2 (11:32→17:57)
[2016-12-04] MEDS: Famotidine 20 MG TABLET PO SCH (05:14)
[2016-12-04] MEDS: *HR* OxyCODONE Immed Rel 5 MG TABLET PO PRN ×2 (05:14→14:04)
[2016-12-04] MEDS: *HR* Heparin 5,000 UNIT/ML VIAL SQ SCH (05:16)
[2016-12-04] MEDS: Nicotine 21 MG PATCH.TD24 TD SCH (08:00)
[2016-12-04] MEDS: Baclofen 10 MG TABLET PO SCH (08:00)
[2016-12-04] MEDS: *HR* HYDROcodone/Acet 5/325 mg TABLET PO PRN (09:47)
[2016-12-04 11:21] VITALS: BP 133/88
--- NOTE | 2016-12-04 14:58 | Discharge Summary ---
Date of Encounter: 12/04/16 Time of Encounter: 08:15 - Discharge Diagnosis (1) Stenosis of right internal carotid artery Priority: Primary Status: Acute (2) Current every day smoker Priority: Secondary Status: Chronic (3) History of CVA with residual deficit Priority: Secondary Status: Chronic (4) Hyperlipidemia Priority: Secondary Status: Chronic Qualifiers: Hyperlipidemia type: unspecified Qualified Code(s): E78.5 - Hyperlipidemia , unspecified (5) Hypertension Priority: Secondary Status: Chronic Qualifiers: Hypertension type: essential hypertension Qualified Code(s): I10 - Essential (primary) hypertension - Discharge Medications Prescriptions: HYDROcodone/Acet 5/325 mg [[place] 5-325 mg] 1 tab PO Q6HR PRN #20 tablet PRN Reason: Moderate Pain Aspirin 81 mg PO DAILY #30 tab.chew Baclofen [Lioresal] 15 mg PO TID #30 tablet Home Medications: Famotidine [Pepcid] 20 mg PO Q12H 11/07/16 [History] Lisinopril [Zestril] 5 mg PO DAILY 11/07/16 [History] Aspirin 81 mg PO DAILY 11/28/16 [History] Aspirin 81 mg PO DAILY #30 tab.chew 12/04/16 [Rx] Atorvastatin Calcium [Lipitor] 40 mg PO HS #30 12/04/16 [Rx] Baclofen [Lioresal] 15 mg PO TID #30 tablet 12/04/16 [Rx] Clopidogrel [Plavix] 75 mg PO DAILY #30 12/04/16 [Rx] HYDROcodone/Acet 5/325 mg [[place] 5-325 mg] 1 tab PO Q6HR PRN #20 tablet [Rx] Zolpidem [Ambien] 10 mg PO HS #10 12/04/16 [Rx] Allergies/Adverse Reactions: Allergies No Known Allergies Allergy (Verified 11/07/16 19:18) Date of admission: 11/29/16 15:56 Primary care physician: Alivia Worthy Discharging clinician: Sheryl Teague Anticipated date of discharge: 12/04/16 - Patient Status Disposition: Transfer Inpatient Rehab Fac Condition: Fair Functional capacity at discharge: uses cane/walker Overall status at discharge: patient is progressing back to baseline - Discharge Instructions Follow Up With: Alivia Worthy MD [Primary Care Provider] - (Patient is going to [facility], no PCP appointment needed) Jeramy Shaver MD [Partnered Physician] - 01/08/17 1:00 pm - Diet and Activity Activity: as per physical therapy Diet: low fat, low cholesterol, low salt diet Hospital course: Ms. Daigle is a 61 year old female with the above medical problems, referred to the emergency room by her primary care provider for evaluation of CT angiogram of the neck, which showed 90% stenosis of right internal carotid artery. Patient has a history of previous stroke with left MCA infarct. Neurology was consulted and recommended continuing dual antiplatelet therapy along with statin and risk factor modification. Vascular surgery was consulted, patient underwent MRI brain, MR angiography of the head and neck, which showed similar findings of significant right internal carotid artery stenosis and previous left MCA infarct. Echocardiogram was done which showed 55% ejection fraction, mild diastolic dysfunction of left ventricle. Patient subsequently underwent right carotid endarterectomy and had an uneventful postoperative course. Physical therapy evaluation was done and recommended placement in inpatient rehabilitation/swing bed. director of rehabilitative services was consulted and patient is currently medically stable for discharge to rehabilitation facility. She was noted to have a DNR/DNI CODE STATUS before I came on service. However, on discussion with patient today prior to discharge, she confirms her CODE STATUS to be full code and this is being changed appropriately in her transfer paperwork. - Time Spent with Patient Total time spent providing and/or coordinating discharge services: Greater than 30 minutes (50 min) - Constitutional Vitals: Temp Pulse Resp BP Pulse Ox 98.2 F 70 16 133/88 95 12/04/16 11:00 12/04/16 11:42 12/04/16 11:00 12/04/16 11:00 12/04/16 11:00 General appearance: Present: A&O X 3, answers questions appropriately - Neck Neck exam general surgery: Present: normal inspection (right neck surgical incision healing well, clean and dry; improved surrounding erythema and edema), supple, trachea midline. Absent: lymphadenopathy - Respiratory Respiratory exam: Present: CTAB. Absent: accessory muscle use, rales, rhonchi, wheezes - VTE Documentation of Mechanical Device: Intermittent pneumatic compression device
--- NOTE | 2016-12-04 15:00 | Physician Discharge Referral ---
ExtendedCare Referral Info Transfer To: [facility] Provider in Charge: Sheryl Teague Provider in Charge after Transfer: PCP Institutional Level of Care: Skilled - Diagnosis (1) Stenosis of right internal carotid artery Priority: Primary Status: Acute (2) Current every day smoker Priority: Secondary Status: Chronic (3) History of CVA with residual deficit Priority: Secondary Status: Chronic (4) Hyperlipidemia Priority: Secondary Status: Chronic (5) Hypertension Priority: Secondary Status: Chronic Expected Duration of Placement: 4 weeks Prognosis: Good Aware of Diagnosis: Patient Aware of Prognosis: Patient - Transfer Medications Prescriptions: HYDROcodone/Acet 5/325 mg [[place] 5-325 mg] 1 tab PO Q6HR PRN #20 tablet PRN Reason: Moderate Pain Aspirin 81 mg PO DAILY #30 tab.chew Baclofen [Lioresal] 15 mg PO TID #30 tablet Home Medications: Famotidine [Pepcid] 20 mg PO Q12H 11/07/16 [History] Lisinopril [Zestril] 5 mg PO DAILY 11/07/16 [History] Aspirin 81 mg PO DAILY 11/28/16 [History] Aspirin 81 mg PO DAILY #30 tab.chew 12/04/16 [Rx] Atorvastatin Calcium [Lipitor] 40 mg PO HS #30 12/04/16 [Rx] Baclofen [Lioresal] 15 mg PO TID #30 tablet 12/04/16 [Rx] Clopidogrel [Plavix] 75 mg PO DAILY #30 12/04/16 [Rx] HYDROcodone/Acet 5/325 mg [[place] 5-325 mg] 1 tab PO Q6HR PRN #20 tablet [Rx] Zolpidem [Ambien] 10 mg PO HS #10 12/04/16 [Rx] Allergies/Adverse Reactions: Allergies No Known Allergies Allergy (Verified 11/07/16 19:18) - Respiratory Orders Smoking Cessation: Smoking cessation has been advised. For more information, call the [employer] Tobacco Quit Line at 2-750-IDLE-NOW. - Ancillary Orders May use pressure relief devices daily prn - Advance Directives Code Status: DNR-Arrest/Don't Intubate - Mobility Orders Ambulate - Rehabiliation Orders Rehab Potential: Fair Rehab Orders: ROM Exercises, Evaluation for Physical Therapy, Evaluation for Occupational Therapy, Evaluation for Speech Therapy - Diet Orders No Added Salt (ART), Cardiac CERTIFICATION: I certify that the transfer of the above named patient to an Extended Care Facility is necessary for the continuing treatment of the diagnosis listed. The above information is true and accurate reflection of patient's current condition. Confidential - Redisclosure prohibited without a patient's written consent.
[2016-12-20 14:57] LABS: APTT (LE Anticoag) ND; Diluted Russell Viper Venom ND; LE APTT D Heparin Neutralized ND; LE Coag APTT Mixing ND; LE Coag Reptilase Time ND; LE Dil. Russell Viper Mix 1:1 ND; LE Hexagonal Phospholipid Neut ND; PT (LE-Anticoag) ND; Thrombin Time ND
== END 2016-12-04 18:13 | DRG 24 ==
LOC: 3BNU 16:20 → EMEROO 16:20 → 3BNU 22:44 → SUATTDRO 11-29 15:56 → 2NNU 12-01 14:06
PROVIDERS: ADMIT Nurse Practitioner Family; ATTEND Internal Medicine

== ENCOUNTER 2017-05-30 05:52 | Inpatient (IN) ==
[2017-05-30] MEDS ORDERED: Lidocaine -MPF 1% 2 ML VIAL ID ONE (06:13)
[2017-05-30] MEDS ORDERED: CeFAZolin Pre 2,000 MG/100 ML 2,000 MG/100 ML BAG IVPB ONE (06:13)
[2017-05-30] MEDS ORDERED: Vancomycin 1,000 MG in D5% in Water 250 ML IVPB ONE ×3 (06:13→19:00)
[2017-05-30] MEDS ORDERED: Albuterol 2.5 MG/3 ML NEBULIZER IH ONE (06:14)
[2017-05-30] MEDS ORDERED: Ringers Solution, Lactated 1,000 ML IVC SCH ×2 (06:15→09:00)
[2017-05-30] MEDS ORDERED: Albuterol 2.5 MG/3 ML NEBULIZER ONE (06:16)
[2017-05-30] MEDS ORDERED: *HR* Propofol 200 MG/20 ML VIAL IVP ONE (07:03)
[2017-05-30] MEDS ORDERED: *HR* FentaNYL (PF) 100 MCG/2 ML VIAL ONE (07:03)
[2017-05-30] MEDS ORDERED: *HR* Midazolam HCl 2 MG/2 ML VIAL ONE (07:03)
[2017-05-30] MEDS ORDERED: *HR* Remifentanil 2 MG VIAL IVP ONE (07:03)
[2017-05-30] MEDS ORDERED: *HR* HYDROmorphone (PF) 1 MG/ML SYRINGE IVP PRN (07:04)
[2017-05-30] MEDS ORDERED: *HR* Promethazine 25 MG/ML VIAL IVP PRN (07:04)
[2017-05-30] MEDS ORDERED: Famotidine 20 MG/2 ML VIAL IVP ONE (07:04)
[2017-05-30] MEDS ORDERED: Acetaminophen IV 1,000 MG/100 ML INFUS..BTL IVPB ONE (07:06)
[2017-05-30] MEDS ORDERED: Lidocaine -MPF 4% 5 ML AMPUL ONE (07:08)
[2017-05-30] MEDS ORDERED: Heparin 1,000 UNITS/500 mL NS 500 ML ONE (07:11)
[2017-05-30] MEDS ORDERED: Bupivacaine-MPF 0.25% 10 ML VIAL ONE (07:11)
[2017-05-30] MEDS ORDERED: Lidocaine 1% 20 ML MDV ONE (07:11)
[2017-05-30] MEDS ORDERED: Protamine Sulfate 50 MG/5 ML VIAL IVP ONE (07:11)
--- NOTE | 2017-05-30 07:11 | Anesthesia Evaluation PreOp ---
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 Chronic 100% occlusion L-ICA. Maintained on daily ASA, Plavix) Anesthesia History: No Prior Anesthetic Complications, Past Anesthesia (R-CEA 2016, Hip Surgery, Partial Hyster) Alcohol Use: none Drug use: none Medications and Allergies Famotidine [Pepcid] 20 mg PO Q12H 11/07/16 [History] Lisinopril [Zestril] 5 mg PO DAILY 11/07/16 [History] Aspirin 81 mg PO DAILY 11/28/16 [History] Aspirin 81 mg PO DAILY #30 tab.chew 12/04/16 [Rx] Atorvastatin Calcium [Lipitor] 40 mg PO HS #30 12/04/16 [Rx] Baclofen [Lioresal] 15 mg PO TID #30 tablet 12/04/16 [Rx] Clopidogrel [Plavix] 75 mg PO DAILY #30 12/04/16 [Rx] HYDROcodone/Acet 5/325 mg [[place] 5-325 mg] 1 tab PO Q6HR PRN #20 tablet [Rx] Zolpidem [Ambien] 10 mg PO HS #10 12/04/16 [Rx] HYDROcodone/Acet 5/325 mg [[place] 5-325 mg] 2 tab PO Q6H PRN #20 tab 02/16/17 [Rx ] Allergies No Known Allergies Allergy (Verified 11/07/16 19:18) - Meds/Allergy Pre-op Review Medications Reviewed: Yes Allergies Reviewed: Yes Beta Blockers on Current Med List: No Anesthesia Results - Labs Laboratory Tests 05/25/17 05/25/17 05/25/17 14:03 14:03 14:03 WBC 4.7 Hgb 14.5 Hct 44.6 Plt Count 155 PT 11.5 INR 1.1 APTT 26.5 Sodium 135 L Potassium 3.9 Chloride 100 Carbon Dioxide 27 BUN 10 Creatinine 0.75 Est GFR (Non-Af Amer) > 60 Anesthesia Exam O2 Sat Height 1.63 m Height 1.63 m Weight 68.039 kg Weight 68.039 kg O2 Sat by Pulse Oximetry 95 O2 Sat by Pulse Oximetry 95 Vital Signs Temp Pulse Resp BP Pulse Ox 98.3 F 65 18 127/68 95 05/30/17 06:24 05/30/17 06:24 05/30/17 06:24 05/30/17 06:24 05/30/17 06:24 Height: 5'4" Weight: 150# NPO (# of Hours): MNOC - HEENT Pupil (Motor): Pupils equal, EOMI Mallampati: II Teeth: Normal, Edentulous Oral Opening: Greater than 3 - DAIRY ASSOCIATE LOC: Oriented DAIRY ASSOCIATE Motor: Normal LUE, Normal LLE, Normal Face, Deficit RUE (Profound RUE weakness 0/4), Deficit RLE (2/3 dorsiflex 3/4 plantar flex, 1/3 hip flex, 0/4 knee bend) DAIRY ASSOCIATE Sensory: Normal: LUE, LLE, Face, Deficit: RUE, RLE - Cardiac Rhythm: Regular Murmur: None JVD: No - Pulmonary Breath Sounds: bilateral Clear Anesthesia Assess/Plan ASA Score: 3 (Smoker, HTN, Chol, Critical Carotid stenosis) Modified Nora Scale for Level of Consciousness: Cooperative, oriented, and tranquil Anesthetic Plan: General Monitoring Plan: Standard Monitors Recovery Plan: PACU Anes Supervising Prov Stmt: Pt seen/evaluated, R&B Discussed, questions answered and consent obtained. Dallas Matta MD
[2017-05-30] MEDS ORDERED: Lidocaine -MPF 2% 2 ML VIAL ONE ×2 (07:16→08:11)
[2017-05-30] MEDS ORDERED: *HR* Succinylcholine 200 MG/10 ML VIAL IVP ONE (07:16)
[2017-05-30] MEDS ORDERED: Dexamethasone 4 MG/ML VIAL ONE (07:16)
[2017-05-30] MEDS ORDERED: Ondansetron 4 MG/2 ML VIAL ONE (07:16)
[2017-05-30] MEDS ORDERED: *HR* Phenylephrine 10 MG/ML VIAL ONE (07:19)
[2017-05-30] MEDS ORDERED: Water for inj. (sterile) 10 ML IV ONE (07:25)
--- NOTE | 2017-05-30 07:35 | History & Physical Report ---
Date of Encounter: 05/30/17 Time of Encounter: 07:28 24 Hour HP Update - Instructions Instructions: If the History and Physical is less than 30 days old and was completed prior to A.M. admission and or procedure and has NOT been updated on calendar day of procedure please complete this update prior to performing procedure. - Update Patient reports changes in Medical Condition: No Changes in examination, assessment, or condition: No Changes in Medication: No Preop tests/diagnostics Reviewed: Yes Surgery Remains Indicated: Yes Consent for Planned Operative Procedure(s) Verified: Yes - Pre-Operative Checklist Preoperative Checklist Indicated: Yes Prophylactic Antibiotic Ordered: Yes (vancomycin due to mrsa risk) Home Medications Include Beta Wilmar: No Beta Wilmar Taken Today (Day of Surgery): No Beta Wilmar Taken Yesterday (Day Prior to Surgery): No Is VTE Prophylaxis Indicated?: Yes
[2017-05-30] MEDS ORDERED: Lidocaine -MPF 1% 2 ML VIAL ONE (07:43)
[2017-05-30] MEDS ORDERED: EPHEDrine 50 MG/ML VIAL ONE (08:23)
[2017-05-30] MEDS ORDERED: *HR* Heparin 5,000 UNIT/ML VIAL ONE ×2 (09:18→10:53)
--- NOTE | 2017-05-30 09:34 | Anesthesia Procedures ---
Date of Encounter: 05/30/17 Time of Encounter: 08:05 Procedures: Anesthesia - Arterial Line Consent obtained: verbal consent Time out performed: Yes Sedation: Fentanyl (mcg): 50 (documented on anesthesia record) Supplemental Oxygen via Nasal Cannula (L/min): 15 (mask) Local Anesthetic: Lidocaine 1% Amount of Anesthetic used (mls): 0.5 Size (Gauge): 20 Length (inches): 1 3/4 Technique Used: sterile prep, direct puncture technique Post-Procedure: line taped into place, dry sterile dressing placed Patient tolerated procedure: well, no complications Complications: none Site: Radial R Vitals: see anesthesia record
[2017-05-30] MEDS ORDERED: *HR* Morphine 10 MG/ML VIAL ONE (11:41)
--- NOTE | 2017-05-30 12:39 | Operative Note ---
Date of procedure: 05/30/17 Pre-op diagnosis: Recurrent 80-99% Right internal carotid artery stenosis Post-op diagnosis: same Procedure: Reoperative right carotid endarterectomy with hemashield patch angioplasty. Complications: None Anesthesia: OSVALDOA Surgeon: Jeramy Shaver Estimated blood loss (cc): 200 Specimen: Right carotid plaque Condition: stable Disposition: PACU Procedure in Detail: Indications: The patient is a 61 year old female with a history of bilateral cerebrovascular accidents. She has a known left internal carotid artery occlusion and a right sided motor deficit. The patient previously underwent a right caortid endarterectomy. Her recent duplex revealed a recurrent 80-99% stenosis. This was confirmed by CTA. A right carotid endarterectomy was recommended to reduce her risk of stroke. Procedure: The patient was identified in the preoperative area. The risks, benefits, and alternatives of the procedure were discussed with her and all questions were answered. She was then taken to the operating room and placed in supine position on the operating table. After induction of general endotracheal anesthesia, the patient was cleaned and draped in normal sterile fashion. A longitudinal incision was made through her prior scar alond the anterior border of the right sternocleidomastoid muscle. Hemostasis was obtained via electrocautery. Through a process of blunt, sharp, and electrocautery dissection, the platysma was traversed. Dense scar tissue was encountered and extensive dissection was required. The jugular vein was identified. The jugular vein was retracted, exposing the carotid bifurcation. The patient received 3000 units of heparin intravenously at this time. Proximal dissection of the common and external carotid arteries were performed circumferentially. Dissection of the internal carotid was performed circumferentially. Vessels loops were passed around the internal and external carotid and an umbilical tape was passed from the common carotid artery. The patient received additional 2000 units of heparin intravenously. After waiting adequate time for the heparin to circulate, the vessels were occluded and a longitudinal arteriotomy was made into the patch on the common carotid artery extending into the internal carotid beyond the plaque. A shunt was placed into the internal carotid and backbled into the wound. It was then inserted into the common carotid artery in the usual fashion. Flow through the shunt was confirmed. A dental [place] was used to perform a standard endarterectomy. Proximal and distal endpoints were inspected. No elevated flaps were noted. A Hemashield patch was cut to fit the defect and sutured in place with running 6 -0 Prolene. The ends o the previous patch were incorporated into the margins of the new patch with 6-0 Prolene. Prior to complete the patch closure, the shunt was clamped twice, divided between the clamps and removed. Each vessel was flushed and then reoccluded. Heparinized saline was infused into the lumen. The patch was completed. Flow was restored in the external carotid artery, followed the common carotid artery, lastly the internal carotid artery was opened. A low resistance arterialized signal was present within the internal carotid artery beyond the patch. Thrombin and Gelfoam were used to aid in hemostasis. Meticulous hemostasis was obtained throughout the wound with electrocautery. Platelet rich and platelet poor plasma were infused into the wounds. The sternocleidomastoid was reapproximated with interrupted 3-0 Vicryl. Platelet rich and platelet poor plasma were infused into the wound. A TLS drain was brought through a separate stab incision and sutured in place with 0 silk suture. The platysma was reapproximated with running 3-0 Vicryl. Local anesthetic was infused in the skin. A 3-0 Monocryl was used to reapproximate the skin. Sterile dressing was applied. The patient was extubated, taken to the recovery room in stable condition.
--- NOTE | 2017-05-30 13:05 | Anesthesia Evaluation Post Op ---
Date of Encounter: 05/30/17 Time of Encounter: 13:03 - Vital Signs Vital Signs: Vital Signs/O2 Sat/Glucose, Most Current Temp Pulse Resp BP Pulse Ox 05/30/17 12:52 98.8 F 85 16 128/84 94 05/30/17 12:42 85 16 130/64 95 05/30/17 12:32 82 18 136/56 92 05/30/17 12:22 98.7 F 95 24 142/68 100 - Lungs Lungs: Clear Ascult./Percussion - Airway Airway: Non-obstructed - Cardiovascular Regular Rate - Mental Status Mental Status: Alert & Oriented, Answers Appropriately - Pain Pain Scale: 0 Pain Scale used: Numeric (1 - 10) - Nausea Vomiting Nausea Vomiting: Not Present - Hydration Hydration: Ice chips - Discharge PostOp Status: Transfer Patient to floor Anes Supervising Prov Stmt: Pt seen/evaluated, VSS, PROMOTIONS OFFICER exam grossly unchanged, and pt has met criteria for discharge to floor. - MD Paxton
[2017-05-30] MEDS ORDERED: Lacri-Lube 3.5 GM TUBE ONE (13:32)
[2017-05-30] MEDS ORDERED: Ondansetron 4 MG/2 ML VIAL IVP PRN (13:36)
[2017-05-30] MEDS ORDERED: *HR* Morphine 2 MG/ML SYRINGE IVP PRN (13:36)
[2017-05-30] MEDS ORDERED: Naloxone 0.4 MG/ML INJ IVP PRN (13:36)
[2017-05-30] MEDS ORDERED: *HR* Labetalol 20 MG/4 ML SYRINGE IVP PRN (13:36)
[2017-05-30] MEDS ORDERED: Acetaminophen 325 MG TABLET PO PRN (13:36)
[2017-05-30] MEDS: Baclofen 10 MG TABLET PO SCH ×2 (13:57→22:04)
[2017-05-30] MEDS: *HR* HYDROcodone/Acet 5/325 mg TABLET PO PRN (13:57)
[2017-05-30] MEDS: ceFAZolin 2,000 MG in D5% in Water 100 ML IVPB SCH (15:57)
--- NOTE | 2017-05-30 17:29 | Event Note ---
Date of Encounter: 05/30/17 Time of Encounter: 17:15 Patient seen and examined. She is alert and comfortablt without complaints. She has no hematoma. Her neurologic exam is at baseline. Clear liquids tonight. Pain control. Likely discharge tomorrow.
[2017-05-30] MEDS: *HR* Metoprolol 5 MG/5 ML VIAL IVP SCH (18:25)
[2017-05-30] MEDS: Famotidine 20 MG TABLET PO SCH (18:28)
[2017-05-30] MEDS: *HR* OxyCODONE Immed Rel 5 MG TABLET PO PRN (18:32)
[2017-05-30] MEDS: Gabapentin 100 MG CAPSULE PO SCH (22:04)
[2017-05-30] MEDS: traZODone 50 MG TABLET PO SCH (22:04)
[2017-05-31] MEDS: *HR* Metoprolol 5 MG/5 ML VIAL IVP SCH ×4 (00:23→17:13)
[2017-05-31] MEDS: *HR* OxyCODONE Immed Rel 5 MG TABLET PO PRN ×3 (00:23→21:21)
[2017-05-31] MEDS: ceFAZolin 2,000 MG in D5% in Water 100 ML IVPB SCH (00:24)
[2017-05-31] MEDS: Famotidine 20 MG TABLET PO SCH ×2 (05:36→18:03)
[2017-05-31] MEDS: *HR* HYDROcodone/Acet 5/325 mg TABLET PO PRN ×2 (05:37→15:29)
[2017-05-31] MEDS: *HR* Heparin 5,000 UNIT/ML VIAL SQ SCH ×2 (05:37→18:03)
[2017-05-31] MEDS ORDERED: *HR* Heparin 5,000 UNIT/ML VIAL SQ SCH (06:00)
--- NOTE | 2017-05-31 07:49 | Discharge Summary ---
Date of Encounter: 06/01/17 Time of Encounter: 07:45 - Discharge Diagnosis (1) Stenosis of right internal carotid artery Priority: Primary Status: Chronic Comments: The patient is postoperative day #2 after a right carotid endarterectomy. She tolerated the procedure well. She is healing. Her neurologic exam is at baseline. She will be discharged when a bed is available. (2) Hyperlipidemia Priority: Secondary Status: Chronic Qualifiers: Hyperlipidemia type: mixed hyperlipidemia Qualified Code(s): E78.2 - Mixed hyperlipidemia (3) Hypertension Priority: Secondary Status: Chronic Comments: She was counseled regarding atheorsclerotic risk factor reduction. Qualifiers: Hypertension type: essential hypertension Qualified Code(s): I10 - Essential (primary) hypertension (4) Occlusion of left internal carotid artery Priority: Secondary Status: Chronic (5) History of CVA with residual deficit Priority: Secondary Status: Chronic - Discharge Medications Prescriptions: HYDROcodone/Acet 5/325 mg [[place] 5-325 mg] 1 tab PO Q4H PRN #25 tab PRN Reason: Postoperative pain Home Medications: Famotidine [Pepcid] 20 mg PO Q12H 11/07/16 [History] Aspirin 81 mg PO DAILY 11/28/16 [History] Atorvastatin Calcium [Lipitor] 40 mg PO HS #30 12/04/16 [Rx] Baclofen [Lioresal] 15 mg PO TID #30 tablet 12/04/16 [Rx] Clopidogrel [Plavix] 75 mg PO DAILY #30 12/04/16 [Rx] Zolpidem [Ambien] 10 mg PO HS #10 12/04/16 [Rx] Calcium Carbonate [Calcium] 500 mg PO DAILY 05/30/17 [History] Docusate [Colace] 100 mg PO DAILY 05/30/17 [History] Ergocalciferol (VITAMIN D2) [Vitamin D] 800 unit PO DAILY 05/30/17 [History] Gabapentin [Neurontin] 100 mg PO BID 05/30/17 [History] HYDROcodone/Acet 5/325 mg [[place] 5-325 mg] 1 tab PO Q4H PRN 05/30/17 [History] Lisinopril/Hydrochlorothiazide [Zestoretic 10-12.5 mg Tablet] 1 each PO DAILY [History] Oxybutynin Chloride [Ditropan Xl] 5 mg PO DAILY 05/30/17 [History] Sennosides/Docusate Sodium [Senna Plus] 1 each PO DAILY 05/30/17 [History] Sertraline [Zoloft] 25 mg PO HS 05/30/17 [History] traZODone [TraZODone] 50 mg PO HS 05/30/17 [History] HYDROcodone/Acet 5/325 mg [[place] 5-325 mg] 1 tab PO Q4H PRN #25 tab 05/31/17 [Rx ] Allergies/Adverse Reactions: Allergies No Known Allergies Allergy (Verified 05/30/17 07:41) Date of admission: 05/30/17 13:13 Primary care physician: Alivia Worthy Consults: 05/30/17 13:47 Consult to Layer Out [CONS] Routine Reason for SW Consult: patient resides at [facility] Discharging clinician: Jeramy Shaver Anticipated date of discharge: 06/01/17 - Patient Status Disposition: Transfer SNF Condition: Good Overall status at discharge: patient is back to baseline - Discharge Instructions Instructions: Hydrocodone/Acetaminophen (By mouth), Carotid Endarterectomy (DC) , Peripheral Vascular Disorders (DC), Chronic Hypertension (DC) Follow Up With: Alivia Worthy MD [Primary Care Provider] - (PATIENT IS FROM AN [facility] NO PCP APPOINTMENT NEEDED) Jeramy Shaver MD [Partnered Physician] - 07/10/17 1:50 pm Additional Instructions: May remove bandage and shower on 06/01/17. Wash wound gently and pat to dry. Call Dr. Shaver at [phone] with questions or concerns. - Diet and Activity Activity: increase activity as tolerated Diet: advance to your usual diet - Hospital Course Hospital course: Ms. Daigle is a 61 year old female with a history of bilateral cerebrovascular accidents and a known left internal carotid artery occlusion. She previously underwent a right carotid endarterectomy for a symptomatic stenosis. She then developed recurrent stenosis. She was admitted to [facility] and underwent a right carotid endarterectomy. She tolerated the procedure well and was discharged on postoperative day #2 in stable condition without complications. - Time Spent with Patient Total time spent providing and/or coordinating discharge services: Exam Vital Signs, Last 4 Hours Temp Pulse Resp BP Pulse Ox 08/03/17 07:36 98.4 F 62 18 104/61 94 05/31/17 05:20 98.1 F 64 18 119/75 92 - VTE Documentation of Mechanical Device: Intermittent pneumatic compression device
[2017-05-31] MEDS: Baclofen 10 MG TABLET PO SCH ×3 (08:12→21:27)
[2017-05-31] MEDS: Aspirin 81 MG TAB.CHEW PO SCH (08:12)
[2017-05-31] MEDS: Cholecalciferol (D-3) 1,000 UNIT TABLET PO SCH (08:13)
[2017-05-31] MEDS: Gabapentin 100 MG CAPSULE PO SCH ×2 (08:13→21:28)
[2017-05-31] MEDS: Sennosides/Docusate Sodium TABLET PO SCH (08:13)
--- NOTE | 2017-05-31 11:34 | Physician Discharge Referral ---
ExtendedCare Referral Info Provider in Charge after Transfer: PCP Institutional Level of Care: Skilled - Diagnosis (1) Stenosis of right internal carotid artery Priority: Primary Status: Chronic (2) History of CVA with residual deficit Priority: Secondary Status: Chronic (3) Hyperlipidemia Priority: Secondary Status: Chronic (4) Hypertension Priority: Secondary Status: Chronic (5) Occlusion of left internal carotid artery Priority: Secondary Status: Chronic Prognosis: Good Aware of Diagnosis: Patient Aware of Prognosis: Patient - Transfer Medications Prescriptions: HYDROcodone/Acet 5/325 mg [[place] 5-325 mg] 1 tab PO Q4H PRN #25 tab PRN Reason: Postoperative pain Home Medications: Famotidine [Pepcid] 20 mg PO Q12H 11/07/16 [History] Aspirin 81 mg PO DAILY 11/28/16 [History] Atorvastatin Calcium [Lipitor] 40 mg PO HS #30 12/04/16 [Rx] Baclofen [Lioresal] 15 mg PO TID #30 tablet 12/04/16 [Rx] Clopidogrel [Plavix] 75 mg PO DAILY #30 12/04/16 [Rx] Zolpidem [Ambien] 10 mg PO HS #10 12/04/16 [Rx] Calcium Carbonate [Calcium] 500 mg PO DAILY 05/30/17 [History] Docusate [Colace] 100 mg PO DAILY 05/30/17 [History] Ergocalciferol (VITAMIN D2) [Vitamin D] 800 unit PO DAILY 05/30/17 [History] Gabapentin [Neurontin] 100 mg PO BID 05/30/17 [History] HYDROcodone/Acet 5/325 mg [[place] 5-325 mg] 1 tab PO Q4H PRN 05/30/17 [History] Lisinopril/Hydrochlorothiazide [Zestoretic 10-12.5 mg Tablet] 1 each PO DAILY [History] Oxybutynin Chloride [Ditropan Xl] 5 mg PO DAILY 05/30/17 [History] Sennosides/Docusate Sodium [Senna Plus] 1 each PO DAILY 05/30/17 [History] Sertraline [Zoloft] 25 mg PO HS 05/30/17 [History] traZODone [TraZODone] 50 mg PO HS 05/30/17 [History] HYDROcodone/Acet 5/325 mg [[place] 5-325 mg] 1 tab PO Q4H PRN #25 tab 05/31/17 [Rx ] Allergies/Adverse Reactions: Allergies No Known Allergies Allergy (Verified 05/30/17 07:41) - Respiratory Orders Smoking Cessation: Smoking cessation has been advised. For more information, call the [place] Tobacco Quit Line at 1-012-NVPR-NOW. - Ancillary Orders May use pressure relief devices daily prn, May go on ARMANI w/family/respon constitution party w /meds at nurse discretion PRN, May have alcoholic beverages, May consult with Dentist, Toy Packer, Mold Car Pusher PRN - Advance Directives Living Will: No Power of Lens Grinder Apprentice: No Code Status: Full Code - Mobility Orders Other (Assistance as needed. Per PT/OT recommendations) - Rehabiliation Orders Rehab Potential: Fair Rehab Orders: ROM Exercises, Evaluation for Physical Therapy, Evaluation for Occupational Therapy - Treatments Skin tear care topically daily PRN per policy, May check for fecal impaction rectally daily PRN, Fleet enema rectally every other day PRN cleansing purposes - Diet Orders Regular CERTIFICATION: I certify that the transfer of the above named patient to an Extended Care Facility is necessary for the continuing treatment of the diagnosis listed. The above information is true and accurate reflection of patient's current condition. Confidential - Redisclosure prohibited without a patient's written consent.
[2017-05-31] MEDS: traZODone 50 MG TABLET PO SCH (21:28)
--- NOTE | 2017-05-31 23:21 | Vascular/[facility] Progress Note ---
Date of Encounter: 05/31/17 Time of Encounter: 07:45 - Assessment and plan (1) Stenosis of right internal carotid artery Current Visit: No Status: Chronic The patient is postoperative day #1 after right carotid endarterectomy for recurrent stenosis. She is healing well. She deneis any new neurologic deficits. Her exam is at her baseline. PT/OT consult today. (2) History of CVA with residual deficit Current Visit: No Status: Chronic (3) Hyperlipidemia Current Visit: No Status: Chronic Qualifiers: Hyperlipidemia type: mixed hyperlipidemia Qualified Code(s): E78.2 - Mixed hyperlipidemia (4) Hypertension Current Visit: No Status: Chronic Qualifiers: Hypertension type: essential hypertension Qualified Code(s): I10 - Essential (primary) hypertension (5) Occlusion of left internal carotid artery Current Visit: No Status: Chronic - Subjective Interval history: The patient is comfortable and alert. She is without complaints. She denies chest pain or shortness of breath. Vital Signs, Last 4 Hours Temp Pulse Resp BP Pulse Ox 05/31/17 19:20 98.5 F 69 17 105/65 97 - Physical Examination General: Present: Conversant HEENT: Present: Trachea midline, Pupils equal Neck: Present: Other (incision clean and dry, no hematoma). Absent: JVD, Tracheal deviation Lungs: Present: Normal Breath Sounds Neuro: Present: Alert and responsive (no focal left lower extremity deficits, right sided weakness unchanged since preop. Patient is at baseling neurologic exam.) Vascular: Present: Normal capillary refill. Absent: Edema Abdomen: Present: Soft - VTE Documentation of Mechanical Device: Intermittent pneumatic compression device Consult Discharge Plan - Plan Instructions: Hydrocodone/Acetaminophen (By mouth), Carotid Endarterectomy (DC) , Peripheral Vascular Disorders (DC), Chronic Hypertension (DC) Additional Instructions: May remove bandage and shower on 06/01/17. Wash wound gently and pat to dry. Call Dr. Shaver at [phone] with questions or concerns. Referrals: Alivia Worthy MD [Primary Care Provider] - (PATIENT IS FROM AN [facility] NO PCP APPOINTMENT NEEDED) Jeramy Shaver MD [Partnered Physician] - 07/10/17 1:50 pm Prescriptions: HYDROcodone/Acet 5/325 mg [[place] 5-325 mg] 1 tab PO Q4H PRN #25 tab PRN Reason: Postoperative pain
[2017-06-01] MEDS: *HR* Metoprolol 5 MG/5 ML VIAL IVP SCH ×3 (00:08→12:00)
[2017-06-01] MEDS: Famotidine 20 MG TABLET PO SCH (05:40)
[2017-06-01] MEDS: *HR* Heparin 5,000 UNIT/ML VIAL SQ SCH (05:49)
[2017-06-01] MEDS: Baclofen 10 MG TABLET PO SCH ×2 (08:10→14:17)
[2017-06-01] MEDS: Cholecalciferol (D-3) 1,000 UNIT TABLET PO SCH (08:11)
[2017-06-01] MEDS: Gabapentin 100 MG CAPSULE PO SCH (08:11)
[2017-06-01] MEDS: Sennosides/Docusate Sodium TABLET PO SCH (08:11)
[2017-06-01] MEDS: Aspirin 81 MG TAB.CHEW PO SCH (08:11)
[2017-06-01] MEDS: *HR* OxyCODONE Immed Rel 5 MG TABLET PO PRN (14:20)
[2017-06-01 15:19] VITALS: BP 94/52
== END 2017-06-01 17:22 | DRG 24 ==
LOC: SAMDAY 05:52 → 2NNU 13:13
PROVIDERS: ADMIT Surgery; ATTEND Surgery

== ENCOUNTER 2017-11-20 15:07 | Observation (INO) ==
[2017-11-20] MEDS ORDERED: 0.9 % Sodium Chloride 1,000 ML IVC ONE (16:43)
[2017-11-20 17:12] LABS: Basophils % 0.3 %; Eosinophils # 0.2 K/mcL (0.0-0.6); Eosinophils % 1.7 %; Hematocrit 49.6 % (35.3-44.9); Hemoglobin 15.9 g/dL (11.5-15.4); Immature Granulocytes % 0.3 % (0-4); Lymphocytes # 3.3 K/mcL (0.6-4.6); Lymphocytes % 33.4 %; Mean Corpuscular HGB Conc 32.1 g/dL (31.6-35.5); Mean Corpuscular Hemoglobin 28.7 pg (28.0-33.3); Mean Corpuscular Volume 89.5 fL (83.0-100.0); Monocytes # 0.9 K/mcL (0.0-1.3); Monocytes % 9.1 %; Neutrophils # 5.5 K/mcL (1.6-8.9); Platelet Count 273 K/mcL (140-400); Red Blood Count 5.54 M/mcL (3.82-4.97); Red Cell Distribution Width 14.6 % (11.5-14.5); Segmented Neutrophils % 55.2 %
--- NOTE | 2017-11-20 17:18 | Emergency Department Note ---
Disposition Clinical Impression: Confusion UTI (urinary tract infection) Qualifiers: Urinary tract infection type: site unspecified Hematuria presence: without hematuria Qualified Code(s): N39.0 - Urinary tract infection, site not specified Disposition: Admitted As Inpatient Condition: Good General Adult HPI - General Chief complaint: ED Psychiatric Symptoms Stated complaint: Psych eval Time Seen by Provider: 11/20/17 16:35 Source: patient Limitations: no limitations Nursing Notes Reviewed: Yes Vital Signs Reviewed: Yes - History of Present Illness HPI Narrative: Patient with significant past medical history of previous stroke in 2016 leaving her with right-sided deficits. Stroke from carotid artery occlusion. Patient on aspirin and Plavix but no other anticoagulation. Lives with family. Sent in by Dr. De Leon after being seen as an outpatient and he had concerns for confusion. The patient was previously in rehabilitation and today began asking for some of her friends that were part of her rehabilitation community. She was asking for several the staff by name. It has been since May that she has not been at the facility. Daughter states that this is an acute change for her. The patient states that she has had a cough and feels short of breath with walking however family states that she does not walk more than a couple of steps secondary to paralysis on the right side. She stands up from her wheelchair to go to the bathroom. She has no other complaints other than urinary frequency. The daughter states that the patient was asking for a catheter secondary to urinary incontinence and frequency. Confusion started 2 days ago and has been progressively worse and more frequent. Pain Scale: 5 - Related Data Home Medications Medication Instructions Recorded Confirmed Famotidine [Pepcid] 20 mg PO Q12H 11/07/16 11/20/17 Aspirin 81 mg PO DAILY 11/28/16 11/20/17 Gabapentin [Neurontin] 100 mg PO BID 05/30/17 11/20/17 Lisinopril/Hydrochlorothiazide 1 each PO DAILY 05/30/17 11/20/17 [Zestoretic 10-12.5 mg Tablet] Oxybutynin Chloride [Ditropan Xl] 5 mg PO DAILY 05/30/17 11/20/17 Sennosides/Docusate Sodium [Senna 1 each PO DAILY PRN 05/30/17 11/20/17 Plus] Sertraline [Zoloft] 25 mg PO HS 05/30/17 11/20/17 traZODone [TraZODone] 50 mg PO HS 05/30/17 11/20/17 Baclofen [Lioresal] 15 mg PO DAILY 11/20/17 11/20/17 Calcium Carb/Vitamin D3/Vit K1 1 each PO DAILY 11/20/17 11/20/17 [Calcium + D Soft Chewable Tab] Previous Rx's Medication Instructions Recorded Atorvastatin Calcium [Lipitor] 40 mg PO HS #30 12/04/16 Clopidogrel [Plavix] 75 mg PO DAILY #30 12/04/16 Allergies Allergy/AdvReac Type Severity Reaction Status Date / Time No Known Allergies Allergy Verified 06/24/17 10:37 Review of Systems: CONSTITUTIONAL: No weight loss, fever, chills, weakness or fatigue. HEENT: Eyes: No visual changes. Ears, Nose, Throat: No hearing loss, difficulty talking or unable to swallow. SKIN: No rash or itching. CARDIOVASCULAR: No chest pain, chest pressure or chest discomfort. No palpitations or edema. RESPIRATORY: No shortness of breath, cough or sputum. GASTROINTESTINAL: No anorexia, nausea, vomiting or diarrhea. No abdominal pain or blood. GENITOURINARY: Urinary frequency and incontinence NEUROLOGICAL: Per family hallucinations No headache, dizziness, syncope, paralysis, ataxia, numbness or tingling in the extremities. No change in bowel or bladder control. MUSCULOSKELETAL: No muscle pain, back pain, joint pain or stiffness. All systems ED: reviewed and negative except as stated. Past Medical History - Past Medical History Medical history: Reports: arthritis, coronary artery disease, CVA, hyperlipidemia, hypertension Surgical history: Reports: no surgical history Psychiatric history: Reports: no psych history HVAC INSTALLATION TECHNICIAN history: Reports: no HVAC INSTALLATION TECHNICIAN history - Social History Smoking Status: Former smoker Smokeless Tobacco Status: No Alcohol use: Reports: none Drug use: Reports: none Physical Exam General: Well appearing, nontoxic, no acute distress Head: Normocephalic Atraumatic Eyes: PERRL, EOMI ENT: Airway patent, no stridor Neck: supple, no meningismus Chest: Lungs clear to auscultation bilateral Cardiac: Regular rate and rhythm, no murmurs, rubs or gallops Abdomen: soft, nontender, nondistended; no guarding, rebound, or tenderness to percussion Musculoskeletal: Calves symmetric, nontender, no palpable cord Skin: No rash, normal skin tone Neuro: Alert and Oriented to person, but not place or time; right-sided deficits including the arm and leg. Patient does have hip flexion on the right. - General Limitations: no limitations General appearance: alert, in no apparent distress Course - Reevaluation(s) Reevaluation #1: Urine shows concern for UTI. This is likely contributing to what her family describes as hallucinations which is likely worsening of some underlying dementia. - Consultations Consultation #1: Discussed with hospitalist. Patient accepted for admission. Vital Signs Temperature 97.5 F L 11/20/17 15:22 Pulse Rate 90 11/20/17 15:22 Respiratory Rate 18 11/20/17 15:22 Blood Pressure 98/66 11/20/17 15:22 O2 Sat by Pulse Oximetry 96 11/20/17 15:22 Temperature 97.8 F 11/20/17 20:19 Pulse Rate 80 11/20/17 19:44 Respiratory Rate 18 11/20/17 20:19 Blood Pressure 134/78 11/20/17 20:19 O2 Sat by Pulse Oximetry 98 11/20/17 19:44 Oxygen Delivery Oxygen Delivery Room Air Medical Decision Making - Lab Data Result diagrams: 11/20/17 16:55 11/20/17 16:55 Lab Results 11/20/17 11/20/17 11/20/17 Range/Units 16:55 16:55 16:55 WBC 10.0 (4.3-11.1) K/mcL RBC 5.54 H (3.82-4.97) M/mcL Hgb 15.9 H (11.5-15.4) g/dL Hct 49.6 H (35.3-44.9) % MCV 89.5 (83.0-100.0) fL MCH 28.7 (28.0-33.3) pg MCHC 32.1 (31.6-35.5) g/dL RDW 14.6 H (11.5-14.5) % Plt Count 273 (140-400) K/mcL MPV 11.0 (9.4-12.4) fL Immature Gran % 0.3 (0-4) % Seg Neutrophils % 55.2 % Lymphocytes % 33.4 % Monocytes % 9.1 % Eosinophils % 1.7 % Basophils % 0.3 % Neutrophils # 5.5 (1.6-8.9) K/mcL Lymphocytes # 3.3 (0.6-4.6) K/mcL Monocytes # 0.9 (0.0-1.3) K/mcL Eosinophils # 0.2 (0.0-0.6) K/mcL Basophils # 0.0 (0.0-0.2) K/mcL Sodium 144 (136-145) mEq/L Potassium 3.3 L (3.5-5.1) mEq/L Chloride 106 (98-107) mEq/L Carbon Dioxide 30 H (23-29) mEq/L BUN 28 H (8-23) mg/dL Creatinine 0.70 (0.60-1.20) mg/dL Est GFR ( Amer) > 60 (> 60) Est GFR (Non-Af Amer) > 60 (> 60) BUN/Creatinine Ratio 40 H (6-26) Glucose 78 (70-105) mg/dL Calculated Osmolality 302 H (280-300) Calcium 9.5 (8.6-10.3) mg/dL Troponin I < 0.03 (< 0.04) ng/mL Urine Color (Yellow) Urine Clarity (Clear) Urine pH (5.0-8.0) pH Units Ur Specific [place] (1.010-1.025) Urine Protein (Neg-Trace) mg/dL Urine Glucose (UA) (Normal) mg/dL Urine Ketones (Negative) mg/dL Urine Blood (Negative) Urine Nitrite (Negative) Urine Bilirubin (Negative) Urine Urobilinogen (Normal) mg/dL Ur Leukocyte Esterase (Negative) Urine Microscopic RBC (0-3) per hpf Urine Microscopic WBC (0-3) per hpf Ur Squamous Epith Cells (None-Few) per lpf Urine Bacteria (None-Few) per hpf Hyaline Casts (None-Few) per lpf Salicylates < 5.0 L (15.0-30.0) mg/dL Urine Opiates Screen (Dsipkx=774) ng/mL Acetaminophen < 1.0 L (10-30) mcg/mL Ur Barbiturates Screen (Rhjsgx=731) ng/mL Ur Phencyclidine Scrn (Cutoff=25) ng/mL Ur Amphetamines Screen (Hgezdf=5379) ng/mL U Benzodiazepines Scrn (Wninfq=327) ng/mL Urine Cocaine Screen (Cutoff= 300) ng/mL U Marijuana (THC) Screen (Cutoff = 50) ng/mL Ethyl Alcohol < 10 (0-10) mg/dL 11/20/17 11/20/17 Range/Units 18:23 18:23 WBC (4.3-11.1) K/mcL RBC (3.82-4.97) M/mcL Hgb (11.5-15.4) g/dL Hct (35.3-44.9) % MCV (83.0-100.0) fL MCH (28.0-33.3) pg MCHC (31.6-35.5) g/dL RDW (11.5-14.5) % Plt Count (140-400) K/mcL MPV (9.4-12.4) fL Immature Gran % (0-4) % Seg Neutrophils % % Lymphocytes % % Monocytes % % Eosinophils % % Basophils % % Neutrophils # (1.6-8.9) K/mcL Lymphocytes # (0.6-4.6) K/mcL Monocytes # (0.0-1.3) K/mcL Eosinophils # (0.0-0.6) K/mcL Basophils # (0.0-0.2) K/mcL Sodium (136-145) mEq/L Potassium (3.5-5.1) mEq/L Chloride (98-107) mEq/L Carbon Dioxide (23-29) mEq/L BUN (8-23) mg/dL Creatinine (0.60-1.20) mg/dL Est GFR ( Amer) (> 60) Est GFR (Non-Af Amer) (> 60) BUN/Creatinine Ratio (6-26) Glucose (70-105) mg/dL Calculated Osmolality (280-300) Calcium (8.6-10.3) mg/dL Troponin I (< 0.04) ng/mL Urine Color Dark Yellow (Yellow) Urine Clarity Turbid A (Clear) Urine pH 7.5 (5.0-8.0) pH Units Ur Specific [place] 1.027 H (1.010-1.025) Urine Protein Trace (Neg-Trace) mg/dL Urine Glucose (UA) Normal (Normal) mg/dL Urine Ketones Trace H (Negative) mg/dL Urine Blood Negative (Negative) Urine Nitrite Negative (Negative) Urine Bilirubin Negative (Negative) Urine Urobilinogen Normal (Normal) mg/dL Ur Leukocyte Esterase Moderate H (Negative) Urine Microscopic RBC 5-15 H (0-3) per hpf Urine Microscopic WBC 15-30 H (0-3) per hpf Ur Squamous Epith Cells Many H (None-Few) per lpf Urine Bacteria Many H (None-Few) per hpf Hyaline Casts Few (None-Few) per lpf Salicylates (15.0-30.0) mg/dL Urine Opiates Screen Negative (Zzcpnb=229) ng/mL Acetaminophen (10-30) mcg/mL Ur Barbiturates Screen Negative (Rnaeny=018) ng/mL Ur Phencyclidine Scrn Negative (Cutoff=25) ng/mL Ur Amphetamines Screen Negative (Szixqk=1350) ng/mL U Benzodiazepines Scrn Negative (Sjwqnx=823) ng/mL Urine Cocaine Screen Negative (Cutoff= 300) ng/mL U Marijuana (THC) Screen Negative (Cutoff = 50) ng/mL Ethyl Alcohol (0-10) mg/dL Attestation Statement - Attestation Attestation: I, Boris Phillips DO, examined this patient [id number] and my medical decision-making was reviewed with Diony Walters DO, Resident Physician. I agree with the documented findings, disposition and treatment plan as described except to the extent set forth below. Please see my progress notes for details. 62-year-old female presents to the emergency room for evaluation of confusion. Patient has been speaking to people who were not there. She denies any auditory or visual hallucinations. Patient denies any suicidal or homicidal ideation. Patient has a history of bladder incontinence. She denies a history and tract infection. Currently she is alert and answers questions but does describe some confusion from time to time. Daughter says she is acting appropriately at this point. Physical exam is unremarkable except for fall spelled it does make concern for urinary tract infection. Lungs are clear heart is regular. Abdomen is soft with mild suprapubic tenderness. Patient moves all 4 extremities and is acting appropriate this time. Patient will be medically cleared as well as evaluated for infectious etiology causing the confusion. CT of the head and chest x-ray pending. Patient will most likely need further management and evaluation in the emergency room. See detailed documentation of the physical exam, medical intervention, medical decision- making and disposition in the resident physician's note 1900 Urine is positive for infection. Patient also has confusion secondary to urinary tract infection exacerbating her dementia. Patient will be admitted for symptom control and reevaluation by potential psychiatric team.
[2017-11-20 17:45] LABS: Acetaminophen < 1.0 mcg/mL (10-30)
[2017-11-20 17:46] LABS: BUN/Creatinine Ratio 40 (6-26); Blood Urea Nitrogen 28 mg/dL (8-23); Calcium 9.5 mg/dL (8.6-10.3); Carbon Dioxide 30 mEq/L (23-29); Chloride 106 mEq/L (98-107); Ethanol < 10 mg/dL (0-10); Glucose 78 mg/dL (70-105); Osmolality,Calculated 302 (280-300); Potassium 3.3 mEq/L (3.5-5.1); Salicylate < 5.0 mg/dL (15.0-30.0); Sodium 144 mEq/L (136-145); eGFR For African Americans > 60 (> 60); eGFR For Non-African Americans > 60 (> 60)
[2017-11-20 18:37] LABS: Amphetamine Screen,Urine Negative ng/mL (Cutoff=1000); Barbiturate Screen,Urine Negative ng/mL (Cutoff=200); Benzodiazepines Screen,Urine Negative ng/mL (Cutoff=200); Cannabinoid Screen,Urine Negative ng/mL (Cutoff = 50); Cocaine Screen,Urine Negative ng/mL (Cutoff= 300); Opiate Screen,Urine Negative ng/mL (Cutoff=300); Phencyclidine Screen,Urine Negative ng/mL (Cutoff=25)
[2017-11-20 18:46] LABS: Bilirubin,Urine Negative (Negative); Blood,Urine Negative (Negative); Clarity,Urine Turbid (Clear); Color,Urine Dark Yellow (Yellow); Glucose,Urine (UA) Normal (Normal); Ketones,Urine Trace mg/dL (Negative); Leukocyte Esterase,Urine Moderate (Negative); Nitrite,Urine Negative (Negative); PH,Urine 7.5 pH Units (5.0-8.0); Protein,Urine Trace mg/dL (Neg-Trace); Specific Gravity,Urine 1.027 (1.010-1.025); Urobilinogen,Urine Normal (Normal)
[2017-11-20 18:51] LABS: Bacteria,Urine Many per hpf (None-Few); Hyaline Casts,Urine Few per lpf (None-Few); Squamous Epithelial Cell,Urine Many per lpf (None-Few); WBC,Urine 15-30 per hpf (0-3)
[2017-11-20] MEDS ORDERED: cefTRIAXone 1,000 MG in Water for inj. (sterile) 10 ML IVP STA (19:04)
[2017-11-20] MEDS ORDERED: Naloxone 0.4 MG/ML INJ IVP PRN (20:29)
[2017-11-20] MEDS ORDERED: Ondansetron ODT 4 MG TAB.RAPDIS SL PRN (20:29)
--- NOTE | 2017-11-20 21:01 | Internal Med History&Physical ---
<Tim Benjamin - Last Filed: 11/21/17 00:28> Date of Encounter: 11/21/17 Time of Encounter: 20:58 Assessment and Plan (1) UTI (urinary tract infection) Current visit: Yes Status: Acute admitted for IV Abx -- rocephin daily maintenance IVF monitor white count and vitals telemetry due to AMS Qualifiers: Urinary tract infection type: site unspecified Hematuria presence: without hematuria Qualified Code(s): N39.0 - Urinary tract infection, site not specified (2) Altered mental status, unspecified Current visit: Yes Status: Acute patient speaking to friends that are not present likely secondary to UTI plan as above; continue to monitor and assess for changing mentation Qualifiers: Altered mental status type: disorientation Qualified Code(s): R41.0 - Disorientation, unspecified (3) History of CVA with residual deficit Current visit: No Status: Chronic prior stroke in 2015 due to carotid stenosis -- residual deficits patient significant fall risk fall precautions (4) At high risk for falls Current visit: Yes Status: Acute place patient on fall precautions (5) Hypertension Current visit: No Status: Chronic normotensive at present -- will hold usual antihypertensives Qualifiers: Hypertension type: essential hypertension Qualified Code(s): I10 - Essential (primary) hypertension (6) DVT prophylaxis Current visit: No Status: Acute subcutaneous heparin Internal Medicine - H&P: HPI Chief complaint: AMS + UTI Admitted From: Emergency Dept Plans for Post Hospital Care: Home History of present illness: Ms. Daigle is a 62 year old female with history of stroke, carotid artery occlusion, as well as dementia. Patient presented to the emergency department at insistence of family as well as Dr. Mauri woo after concern of recent ultimate mentation. Apparently, patient has been seen and conversing with friends from her previous rehab facility were not physically present. Patient has not seen these friends since May 2017. Patient also describes that she is having to urinate more frequently than normal. Per patient's family, these changes are acute and not baseline mentation for patient. Patient also complains of subjective shortness of breath especially when ambulating, however, patient is generally wheelchair-bound taking no more than 2 or 3 steps at a time. Patient tells me she feels constipated as well. Otherwise, patient does not have any complaints. All symptoms began approximately 2 days ago. Past Med Surg Social Fam HX - Past Medical History Medical history: arthritis, coronary artery disease, CVA, hyperlipidemia, hypertension Psychiatric history: no psych history - Past Surgical History Surgical History: hip replacement - Social History Smoking Status: Former smoker Smokeless Tobacco Status: No Alcohol use: none Drug use: none - Family History Mother Hx Family Cancer: Yes Father Living Status: Hx Family Cardiac Disorders: Yes Hx Family Neuromuscular Disorders: Yes Hx Family Neurologic Disorders: Yes Internal Medicine - H&P: Meds Famotidine [Pepcid] 20 mg PO Q12H 11/07/16 [History] Aspirin 81 mg PO DAILY 11/28/16 [History] Atorvastatin Calcium [Lipitor] 40 mg PO HS #30 12/04/16 [Rx] Clopidogrel [Plavix] 75 mg PO DAILY #30 12/04/16 [Rx] Gabapentin [Neurontin] 100 mg PO BID 05/30/17 [History] Lisinopril/Hydrochlorothiazide [Zestoretic 10-12.5 mg Tablet] 1 each PO DAILY [History] Oxybutynin Chloride [Ditropan Xl] 5 mg PO DAILY 05/30/17 [History] Sennosides/Docusate Sodium [Senna Plus] 1 each PO DAILY PRN 05/30/17 [History] Sertraline [Zoloft] 25 mg PO HS 05/30/17 [History] traZODone [TraZODone] 50 mg PO HS 05/30/17 [History] Baclofen [Lioresal] 15 mg PO DAILY 11/20/17 [History] Calcium Carb/Vitamin D3/Vit K1 [Calcium + D Soft Chewable Tab] 1 each PO DAILY 11/20/17 [History] 3 Allergy/AdvReac Type Severity Reaction Status Date / Time No Known Allergies Allergy Verified 06/24/17 10:37 ROS unobtainable: due to mental status All Systems PM: A 10-system review of systems was performed and is negative for pertinent findings except as documented above in the HPI. - Constitutional Vitals: Temp Pulse Resp BP Pulse Ox 98.6 F 88 14 121/72 94 11/20/17 20:33 11/20/17 20:33 11/20/17 20:33 11/20/17 20:33 11/20/17 20:33 General appearance: Present: A&O X 2 Exam: CONSTITUTIONAL: Alert and oriented to person/place (difficulty with time), well- nourished, well appearing, in no apparent distress HEAD: Normocephalic; atraumatic. EYES: PERRL, no scleral icterus, no drainage, no conjunctival injection NOSE: The nose is normal in appearance without rhinorrhea Oropharynx: pink/moist, no tonsillar edema/erythema/exudates RESP: NRD without use of accessory musculature, CTA b/l with no wheezes/rales/ rhonchi CARD: Regular rhythm, without murmurs, rubs, or gallop ABD: grossly normal, soft, non-tender, no guarding/distention/rigidity SKIN: normal appearance, no pallor/diaphoresis,mottling,jaundice,cyanosis EXT: DP/Rad pulses 2+ and symmetrical; no lateralizing edema; no other lesions seen PSYCH: appropriate mood/affect Internal Med - H&P Results - Labs CBC & Chem 7: 11/20/17 16:55 11/20/17 16:55 Labs: Short CBC 11/20/17 Range/Units 16:55 WBC 10.0 (4.3-11.1) K/mcL Hgb 15.9 H (11.5-15.4) g/dL Hct 49.6 H (35.3-44.9) % Plt Count 273 (140-400) K/mcL Neutrophils # 5.5 (1.6-8.9) K/mcL BMP 11/20/17 16:55 Sodium 144 Potassium 3.3 L Chloride 106 Carbon Dioxide 30 H BUN 28 H Creatinine 0.70 Glucose 78 Calcium 9.5 Cardiac Enzymes 11/20/17 Range/Units 16:55 Troponin I < 0.03 (< 0.04) ng/mL Urine 11/20/17 Range/Units 18:23 Urine Color Dark Yellow (Yellow) Urine Clarity Turbid A (Clear) Urine pH 7.5 (5.0-8.0) pH Units Ur Specific [place] 1.027 H (1.010-1.025) Urine Protein Trace (Neg-Trace) mg/dL Urine Glucose (UA) Normal (Normal) mg/dL - Impressions ITS Impressions Chest X-Ray 11/20/17 16:43 IMPRESSION: No acute cardiopulmonary disease identified. D/ / 11/20/2017 18:05:18 Fabrice Polanco MD / [email or web address] Interpreting Provider: Fabrice Polanco MD Head CT 11/20/17 16:43 IMPRESSION: No acute intracranial abnormality. Old left MCA distribution infarct Diffuse atrophic changes with findings suggesting chronic microvascular ischemia D/ / Franklyn Higgins MD / Franklyn Higgins MD Interpreting Provider: Franklyn Higgins MD <Chandu Mai - Last Filed: 11/21/17 05:20> Date of Encounter: 11/21/17 Internal Medicine - H&P: HPI History of present illness: Ms. Daigle is a 62 year old female All Systems PM: A 10-system review of systems was performed and is negative for pertinent findings except as documented above in the HPI. - Constitutional Vitals: Temp Pulse Resp BP Pulse Ox 97.8 F 75 16 125/86 98 11/21/17 03:16 11/21/17 03:16 11/21/17 03:16 11/21/17 03:16 11/21/17 03:16 Internal Med - H&P Results - Labs CBC & Chem 7: 11/21/17 03:48 11/21/17 03:48 Labs: Short CBC 11/21/17 Range/Units 03:48 WBC 8.9 (4.3-11.1) K/mcL Hgb 12.5 D (11.5-15.4) g/dL Hct 38.7 (35.3-44.9) % Plt Count 205 (140-400) K/mcL Neutrophils # 3.2 (1.6-8.9) K/mcL BMP 11/21/17 03:48 Sodium 137 Potassium 3.8 Chloride 106 Carbon Dioxide 27 BUN 17 Creatinine 0.61 Glucose 84 Calcium 7.5 L - Attending Attestation I have seen and examined the patient independently. I have discussed with resident physician Dr. Benjamin regarding the management plan. Agree with the documentation.
[2017-11-20] MEDS: Gabapentin 100 MG CAPSULE PO SCH (21:29)
[2017-11-20] MEDS: traZODone 50 MG TABLET PO SCH (21:29)
[2017-11-20] MEDS: Famotidine 20 MG TABLET PO SCH (21:29)
[2017-11-20] MEDS: Acetaminophen 325 MG TABLET PO PRN (21:29)
[2017-11-20] MEDS: *HR* Heparin 5,000 UNIT/ML VIAL SQ SCH (21:30)
[2017-11-20] MEDS: 0.9 % Sodium Chloride 1,000 ML IVC SCH ×3 (21:30→22:52)
[2017-11-21 05:00] LABS: Basophils % 0.4 %; Eosinophils # 0.2 K/mcL (0.0-0.6); Hematocrit 38.7 % (35.3-44.9); Immature Granulocytes % 0.3 % (0-4); Lymphocytes # 4.6 K/mcL (0.6-4.6); Mean Corpuscular HGB Conc 32.3 g/dL (31.6-35.5); Mean Corpuscular Hemoglobin 28.7 pg (28.0-33.3); Mean Corpuscular Volume 88.8 fL (83.0-100.0); Mean Platelet Volume 11.6 fL (9.4-12.4); Monocytes # 0.8 K/mcL (0.0-1.3); Monocytes % 9.1 %; Neutrophils # 3.2 K/mcL (1.6-8.9); Platelet Count 205 K/mcL (140-400); Red Blood Count 4.36 M/mcL (3.82-4.97); Red Cell Distribution Width 14.5 % (11.5-14.5); Segmented Neutrophils % 36.2 %
[2017-11-21 05:05] LABS: Hemoglobin 12.5 g/dL (11.5-15.4)
[2017-11-21 05:16] LABS: BUN/Creatinine Ratio 28 (6-26); Blood Urea Nitrogen 17 mg/dL (8-23); Calcium 7.5 mg/dL (8.6-10.3); Carbon Dioxide 27 mEq/L (23-29); Chloride 106 mEq/L (98-107); Glucose 84 mg/dL (70-105); Osmolality,Calculated 285 (280-300); Potassium 3.8 mEq/L (3.5-5.1); Sodium 137 mEq/L (136-145); eGFR For African Americans > 60 (> 60); eGFR For Non-African Americans > 60 (> 60)
[2017-11-21] MEDS: 0.9 % Sodium Chloride 1,000 ML IVC SCH (05:27)
[2017-11-21] MEDS: *HR* Heparin 5,000 UNIT/ML VIAL SQ SCH ×2 (05:27→18:16)
--- NOTE | 2017-11-21 08:24 | Electrocardiograph Report ---
[address] [place], [place] [address] Test Date: 2017-11-20 Pat Name: Veronica Daigle Department: 104 Room: 3B21 Gender: F Contact Worker: : [id number] Requested By: Boris Phillips Order Number: [id number] Reading MD: Domi Sweeney Measurements Intervals [place] Rate: 77 P: 121 ME: 167 QRS: 61 QRSD: 86 T: -50 QT: 385 QTc: 417 Interpretive Statements ARTIFACT LIMITS INTERPRETATION Electronically Signed On 11-21-2017 8:22:32 EST by Domi Sweeney
[2017-11-21] MEDS: Gabapentin 100 MG CAPSULE PO SCH ×2 (09:26→19:54)
[2017-11-21] MEDS: Acetaminophen 325 MG TABLET PO PRN ×2 (09:26→19:54)
[2017-11-21] MEDS: Famotidine 20 MG TABLET PO SCH ×2 (09:26→19:55)
[2017-11-21] MEDS: Aspirin 81 MG TAB.CHEW PO SCH (09:26)
--- NOTE | 2017-11-21 16:47 | Internal Med Progress Note ---
Date of Encounter: 11/21/17 Time of Encounter: 11:00 - Assessment and plan (1) History of CVA with residual deficit Current Visit: No Status: Chronic Assessment and plan: hx CVA with residual right-sided paralysis. With reported confusion/ hallucinations at outpatient physician's office and was advised to go to ER. Head CT with evidence of old left infarct, no acute intracranial abnormality. Patient appears to be back to baseline, LOC 4, no confusion or hallucinations apparent. Hold on further workup at this time. Patient is interested in SNF at discharge. PT/OT consult. Continue home ASA, Plavix, statin, BB (2) Hypertension Current Visit: No Status: Chronic Assessment and plan: per hx. BP controlled. Cont home BP medication. Monitor BP and titrate PRN Qualifiers: Hypertension type: essential hypertension Qualified Code(s): I10 - Essential (primary) hypertension (3) UTI (urinary tract infection) Current Visit: Yes Status: Acute Assessment and plan: UA indicative of UTI. Continue IV Rocephin. Urine culture pending, narrow ATB accordingly. Qualifiers: Urinary tract infection type: site unspecified Hematuria presence: without hematuria Qualified Code(s): N39.0 - Urinary tract infection, site not specified (4) DVT prophylaxis Current Visit: No Status: Acute Assessment and plan: heparin - Subjective Interval history: Seen and examined at bedside. Patient is new to me, information obtained from chart review and patient report. Says she feels at baseline, says she was at outpatient follow-up yesterday when family thought she was confused therefore she was advised to go to the ER. Patient denies any auditory or visual hallucinations. Says she is at baseline. She would like to be discharged to SNF if possible. - Constitutional Vitals: Temp Pulse Resp BP Pulse Ox 97.5 F L 76 17 131/66 99 11/21/17 16:18 11/21/17 16:18 11/21/17 16:18 11/21/17 16:18 11/21/17 16:18 General appearance: Present: A&O X 3 - Head Head exam: Present: atraumatic, normocephalic - Eye Eye exam: Present: PERRL, conjuntiva pink, sclera anicteric Pupils: Present: PERRL - Neck Neck exam general surgery: Present: supple, trachea midline. Absent: lymphadenopathy - Respiratory Respiratory exam: Present: CTAB. Absent: accessory muscle use, rales, rhonchi, wheezes - Cardiovascular Cardiovascular exam: Present: RRR, +S1, +S2. Absent: diastolic murmur, gallop, rubs, systolic murmur - GI/Abdominal GI/Abdominal exam: Present: normal bowel sounds, soft, no peritoneal signs. Absent: distended, tenderness - Extremities Exam Extremities exam: Present: warm, radial pulses palpable and symmetrical. Absent : calf tenderness, cyanotic, pedal edema Additional comments: Right upper and right lower extremity paralysis, left facial droop. - Neurological Exam Neurological exam: Present: CN II-XII intact, oriented X3, no focal deficits. Absent: pronater drift, facial droop, speech deficit - Skin Skin exam: Present: dry, intact Internal Medicine: Result - Labs CBC & Chem 7: 11/21/17 03:48 11/21/17 03:48 Labs: Short CBC 11/21/17 Range/Units 03:48 WBC 8.9 (4.3-11.1) K/mcL Hgb 12.5 D (11.5-15.4) g/dL Hct 38.7 (35.3-44.9) % Plt Count 205 (140-400) K/mcL Neutrophils # 3.2 (1.6-8.9) K/mcL BMP 11/21/17 03:48 Sodium 137 Potassium 3.8 Chloride 106 Carbon Dioxide 27 BUN 17 Creatinine 0.61 Glucose 84 Calcium 7.5 L Consult Discharge Plan - Plan Referrals: Alivia Worthy MD [Non-Partnered Physician] -
[2017-11-21] MEDS: cefTRIAXone 1,000 MG in Water for inj. (sterile) 10 ML IVP SCH (19:54)
[2017-11-21] MEDS: traZODone 50 MG TABLET PO SCH (19:55)
[2017-11-21] MEDS ORDERED: Ketorolac 15 MG/ML VIAL IM ONE (22:24)
[2017-11-22] MEDS: 0.9 % Sodium Chloride 1,000 ML IVC SCH ×3 (06:03→16:36)
[2017-11-22] MEDS: *HR* Heparin 5,000 UNIT/ML VIAL SQ SCH ×2 (06:03→16:36)
[2017-11-22] MEDS ORDERED: Ketorolac 15 MG/ML VIAL IVP ONE (06:37)
[2017-11-22] MEDS: Gabapentin 100 MG CAPSULE PO SCH ×2 (08:42→20:33)
[2017-11-22] MEDS: Aspirin 81 MG TAB.CHEW PO SCH (08:42)
[2017-11-22] MEDS: Famotidine 20 MG TABLET PO SCH ×2 (08:42→20:33)
[2017-11-22] MEDS ORDERED: traMADol 50 MG TABLET PO ONE (09:15)
[2017-11-22] MEDS: Baclofen 10 MG TABLET PO SCH (09:49)
--- NOTE | 2017-11-22 16:28 | Internal Med Progress Note ---
Date of Encounter: 11/22/17 Time of Encounter: 10:00 - Assessment and plan (1) History of CVA with residual deficit Current Visit: No Status: Chronic Assessment and plan: hx CVA with residual right-sided paralysis. With reported confusion/ hallucinations at outpatient physician's office and was advised to go to ER. Head CT with evidence of old left infarct, no acute intracranial abnormality. Patient appears to be back to baseline, LOC 4, no confusion or hallucinations apparent. Hold on further workup at this time. Continue home ASA, Plavix, statin, BB. PT/OT recommending SNF (2) Hypertension Current Visit: No Status: Chronic Assessment and plan: per hx. BP controlled. Cont home BP medication. Monitor BP and titrate PRN Qualifiers: Hypertension type: essential hypertension Qualified Code(s): I10 - Essential (primary) hypertension (3) UTI (urinary tract infection) Current Visit: Yes Status: Acute Assessment and plan: UA indicative of UTI. Continue IV Rocephin. Urine culture pending, narrow ATB accordingly. Qualifiers: Urinary tract infection type: site unspecified Hematuria presence: without hematuria Qualified Code(s): N39.0 - Urinary tract infection, site not specified (4) Right leg pain Current Visit: Yes Status: Acute Assessment and plan: reports fall 2 months ago with subsequent persistent right leg/knee pain. Right knee swollen, tender on exam. Add PRN oxycodone, right knee x-ray pending (5) DVT prophylaxis Current Visit: No Status: Acute Assessment and plan: heparin - Subjective Interval history: Seen and examined at bedside. Says she had an uneventful night, she does complain of right knee pain. States she fell 2 months ago and saw persistent right knee pain. She initially said she would like to be discharged to SNF however she says now she would prefer to go home with home health care. No other complaints besides right leg/knee pain - Constitutional Vitals: Temp Pulse Resp BP Pulse Ox 97.3 F L 86 16 132/95 100 11/22/17 10:42 11/22/17 10:42 11/22/17 10:42 11/22/17 10:42 11/22/17 10:42 General appearance: Present: A&O X 3 - Head Head exam: Present: atraumatic, normocephalic - Eye Eye exam: Present: PERRL, conjuntiva pink, sclera anicteric Pupils: Present: PERRL - Neck Neck exam general surgery: Present: supple, trachea midline. Absent: lymphadenopathy - Respiratory Respiratory exam: Present: CTAB. Absent: accessory muscle use, rales, rhonchi, wheezes - Cardiovascular Cardiovascular exam: Present: RRR, +S1, +S2. Absent: diastolic murmur, gallop, rubs, systolic murmur - GI/Abdominal GI/Abdominal exam: Present: normal bowel sounds, soft, no peritoneal signs. Absent: distended, tenderness - Extremities Exam Extremities exam: Present: warm, radial pulses palpable and symmetrical. Absent : calf tenderness, cyanotic, pedal edema - Neurological Exam Neurological exam: Present: CN II-XII intact, oriented X3, no focal deficits. Absent: pronater drift, facial droop, speech deficit - Skin Skin exam: Present: dry, intact Internal Medicine: Result - Labs CBC & Chem 7: 11/21/17 03:48 11/21/17 03:48 Consult Discharge Plan - Plan Referrals: Alivia Worthy MD [Non-Partnered Physician] -
[2017-11-22] MEDS: *HR* OxyCODONE Immed Rel 5 MG TABLET PO PRN (16:54)
[2017-11-22] MEDS: traZODone 50 MG TABLET PO SCH (20:33)
[2017-11-22] MEDS: cefTRIAXone 1,000 MG in Water for inj. (sterile) 10 ML IVP SCH (20:34)
[2017-11-23] MEDS: *HR* Heparin 5,000 UNIT/ML VIAL SQ SCH ×2 (05:32→18:42)
[2017-11-23] MEDS: Aspirin 81 MG TAB.CHEW PO SCH (07:41)
[2017-11-23] MEDS: Famotidine 20 MG TABLET PO SCH ×2 (07:41→20:18)
[2017-11-23] MEDS: Baclofen 10 MG TABLET PO SCH (07:41)
[2017-11-23] MEDS: Gabapentin 100 MG CAPSULE PO SCH ×2 (07:43→20:18)
[2017-11-23] MEDS: *HR* OxyCODONE Immed Rel 5 MG TABLET PO PRN ×2 (09:50→18:39)
--- NOTE | 2017-11-23 16:44 | Internal Med Progress Note ---
Date of Encounter: 11/23/17 Time of Encounter: 11:00 - Assessment and plan (1) History of CVA with residual deficit Current Visit: No Status: Chronic Assessment and plan: hx CVA with residual right-sided paralysis. With reported confusion/ hallucinations at outpatient physician's office and was advised to go to ER. Head CT with evidence of old left infarct, no acute intracranial abnormality. Patient appears to be back to baseline, LOC 4, no confusion or hallucinations apparent. Hold on further workup at this time. Continue home ASA, Plavix, statin, BB. PT/OT recommending SNF (2) Hypertension Current Visit: No Status: Chronic Assessment and plan: per hx. BP controlled. Cont home BP medication. Monitor BP and titrate PRN Qualifiers: Hypertension type: essential hypertension Qualified Code(s): I10 - Essential (primary) hypertension (3) UTI (urinary tract infection) Current Visit: Yes Status: Acute Assessment and plan: UA indicative of UTI. Continue IV Rocephin. Urine culture pending, narrow ATB accordingly. Qualifiers: Urinary tract infection type: site unspecified Hematuria presence: without hematuria Qualified Code(s): N39.0 - Urinary tract infection, site not specified (4) Right leg pain Current Visit: Yes Status: Acute Assessment and plan: reports fall 2 months ago with subsequent persistent right leg/knee pain. Right knee swollen, tender on exam. Add PRN oxycodone, right knee x-ray pending (5) DVT prophylaxis Current Visit: No Status: Acute Assessment and plan: heparin - Subjective Interval history: Seen and examined at bedside. Uneventful night; says she feels about the same. She is agreeable to discharge to SNF. There with complaint of right leg pain but overall improved. - Constitutional Vitals: Temp Pulse Resp BP Pulse Ox 99.1 F 89 15 141/87 96 11/23/17 15:06 11/23/17 15:06 11/23/17 15:06 11/23/17 15:06 11/23/17 15:06 General appearance: Present: A&O X 3 - Head Head exam: Present: atraumatic, normocephalic - Eye Eye exam: Present: PERRL, conjuntiva pink, sclera anicteric Pupils: Present: PERRL - Neck Neck exam general surgery: Present: supple, trachea midline. Absent: lymphadenopathy - Respiratory Respiratory exam: Present: CTAB. Absent: accessory muscle use, rales, rhonchi, wheezes - Cardiovascular Cardiovascular exam: Present: RRR, +S1, +S2. Absent: diastolic murmur, gallop, rubs, systolic murmur - GI/Abdominal GI/Abdominal exam: Present: normal bowel sounds, soft, no peritoneal signs. Absent: distended, tenderness - Extremities Exam Extremities exam: Present: warm, radial pulses palpable and symmetrical. Absent : calf tenderness, cyanotic, pedal edema - Neurological Exam Neurological exam: Present: CN II-XII intact, oriented X3, no focal deficits. Absent: pronater drift, facial droop, speech deficit Additional comments: RUE and RLE paralysis - Skin Skin exam: Present: dry, intact Internal Medicine: Result - Labs CBC & Chem 7: 11/21/17 03:48 11/21/17 03:48 - Impressions Impressions Knee X-Ray 11/22/17 16:23 IMPRESSION: Bony demineralization. No acute fracture or dislocation is found. D/ / Paras River MD / Paras River MD Interpreting Provider: Paras River MD Consult Discharge Plan - Plan Referrals: Alivia Worthy MD [Non-Partnered Physician] -
[2017-11-23] MEDS: levoFLOXacin 500 MG TABLET PO SCH (18:40)
[2017-11-23] MEDS: traZODone 50 MG TABLET PO SCH (20:18)
[2017-11-24] MEDS: *HR* Heparin 5,000 UNIT/ML VIAL SQ SCH ×2 (05:10→16:57)
[2017-11-24] MEDS: levoFLOXacin 500 MG TABLET PO SCH (07:36)
[2017-11-24] MEDS: Baclofen 10 MG TABLET PO SCH (07:36)
[2017-11-24] MEDS: Aspirin 81 MG TAB.CHEW PO SCH (07:36)
[2017-11-24] MEDS: Gabapentin 100 MG CAPSULE PO SCH ×2 (07:37→21:15)
[2017-11-24] MEDS: Famotidine 20 MG TABLET PO SCH ×2 (07:37→21:16)
--- NOTE | 2017-11-24 12:13 | Discharge Summary ---
Date of Encounter: 11/24/17 Time of Encounter: 12:11 - Discharge Diagnosis (1) History of CVA with residual deficit Priority: Secondary Status: Chronic Comments: hx CVA with residual right-sided paralysis. With reported confusion/ hallucinations at outpatient physician's office and was advised to go to ER. Head CT with evidence of old left infarct, no acute intracranial abnormality. UDS negative. Patient appears to be back to baseline, LOC 4, no confusion or hallucinations; no further workup at this time. Continue home ASA, Plavix, statin, BB. PT/OT recommended SNF at discharge. (2) Hypertension Priority: Secondary Status: Chronic Comments: per hx. BP controlled. Cont home BP medication. Qualifiers: Hypertension type: essential hypertension Qualified Code(s): I10 - Essential (primary) hypertension (3) UTI (urinary tract infection) Priority: Primary Status: Resolved Comments: UA indicative of UTI. Urine cx with pansensitive Escherichia coli. Completed 5 day course IV ceftriaxone. Qualifiers: Urinary tract infection type: site unspecified Hematuria presence: without hematuria Qualified Code(s): N39.0 - Urinary tract infection, site not specified (4) Right leg pain Priority: Secondary Status: Chronic Comments: reports fall 2 months ago with subsequent persistent right leg/knee pain. Right knee swollen, tender on exam. Right knee x-ray nonacute. Suspect secondary to muscle atrophy post CVA. Continue home baclofen, lidoderm patch. - Discharge Medications Home Medications: Famotidine [Pepcid] 20 mg PO Q12H 11/07/16 [History] Aspirin 81 mg PO DAILY 11/28/16 [History] Atorvastatin Calcium [Lipitor] 40 mg PO HS #30 12/04/16 [Rx] Clopidogrel [Plavix] 75 mg PO DAILY #30 12/04/16 [Rx] Gabapentin [Neurontin] 100 mg PO BID 05/30/17 [History] Lisinopril/Hydrochlorothiazide [Zestoretic 10-12.5 mg Tablet] 1 each PO DAILY [History] Oxybutynin Chloride [Ditropan Xl] 5 mg PO DAILY 05/30/17 [History] Sennosides/Docusate Sodium [Senna Plus] 1 each PO DAILY PRN 05/30/17 [History] Sertraline [Zoloft] 25 mg PO HS 05/30/17 [History] traZODone [TraZODone] 50 mg PO HS 05/30/17 [History] Baclofen [Lioresal] 15 mg PO DAILY 11/20/17 [History] Calcium Carb/Vitamin D3/Vit K1 [Calcium + D Soft Chewable Tab] 1 each PO DAILY 11/20/17 [History] Lidocaine Patch [Lidoderm 5% patch] 1 each TP DAILY adh..patch 11/24/17 [Rx] Allergies/Adverse Reactions: 3 Allergy/AdvReac Type Severity Reaction Status Date / Time No Known Allergies Allergy Verified 06/24/17 10:37 Date of admission: 11/20/17 20:10 Primary care physician: PCP NONE Consults: 11/20/17 21:53 Consult to Occupational Therapy [CONS] Routine Comment: Evaluate, develop and implement POC Reason for Consult: 62F h/o CVA with ongoing unilateral weakness Consult to Physical Therapy [CONS] Routine Comment: Evaluate, develop and implement POC Reason for Consult: 62F h/o CVA with ongoing unilateral weakness Discharging clinician: Marion Samuels Anticipated date of discharge: 11/24/17 - Patient Status Disposition: Transfer SNF Condition: Good Functional capacity at discharge: wheelchair bound - Discharge Instructions Follow Up With: Alivia Worthy MD [Non-Partnered Physician] - - Diet and Activity Activity: as per physical therapy Diet: low fat, low cholesterol Interval History: Seen and examined at bedside. Patient says she feels better and is ready for discharge. Still with some right leg/knee pain but improved with baclofen and Lidoderm patch. No dysuria, no chest pain or shortness of breath. Hospital course: See assessment and plan for hospital course - Time Spent with Patient Total time spent providing and/or coordinating discharge services: - Constitutional Vitals: Temp Pulse Resp BP Pulse Ox 98.3 F 80 17 136/82 96 11/24/17 11:59 11/24/17 11:59 11/24/17 11:59 11/24/17 11:59 11/24/17 11:59 General appearance: Present: A&O X 3, no acute distress - Head Head exam: Present: atraumatic, normocephalic - Eye Eye exam: Present: PERRL, conjuntiva pink, sclera anicteric Pupils: Present: PERRL - Neck Neck exam general surgery: Present: supple, trachea midline. Absent: lymphadenopathy - Respiratory Respiratory exam: Present: CTAB. Absent: accessory muscle use, rales, rhonchi, wheezes - Cardiovascular Cardiovascular exam: Present: RRR, +S1, +S2. Absent: diastolic murmur, gallop, rubs, systolic murmur - GI/Abdominal GI/Abdominal exam: Present: normal bowel sounds, soft, no peritoneal signs. Absent: distended, tenderness - Extremities Exam Extremities exam: Present: warm, radial pulses palpable and symmetrical. Absent : calf tenderness, cyanotic, pedal edema Additional comments: RUE and RLE paralysis - Neurological Exam Neurological exam: Present: CN II-XII intact, oriented X3, no focal deficits, facial droop (left facial droop ). Absent: pronater drift, speech deficit - Skin Skin exam: Present: dry, intact
[2017-11-24] MEDS: *HR* OxyCODONE Immed Rel 5 MG TABLET PO PRN (21:15)
[2017-11-24] MEDS: traZODone 50 MG TABLET PO SCH (21:15)
[2017-11-25] MEDS: *HR* OxyCODONE Immed Rel 5 MG TABLET PO PRN ×3 (03:15→20:51)
[2017-11-25] MEDS: *HR* Heparin 5,000 UNIT/ML VIAL SQ SCH ×2 (05:35→17:17)
[2017-11-25] MEDS: Baclofen 10 MG TABLET PO SCH (08:05)
[2017-11-25] MEDS: Aspirin 81 MG TAB.CHEW PO SCH (08:06)
[2017-11-25] MEDS: levoFLOXacin 500 MG TABLET PO SCH (08:06)
[2017-11-25] MEDS: Famotidine 20 MG TABLET PO SCH ×2 (08:07→20:49)
[2017-11-25] MEDS: Gabapentin 100 MG CAPSULE PO SCH ×2 (08:07→20:49)
--- NOTE | 2017-11-25 15:34 | Internal Med Progress Note ---
Date of Encounter: 11/25/17 Time of Encounter: 10:00 - Assessment and plan (1) History of CVA with residual deficit Current Visit: No Status: Chronic Assessment and plan: hx CVA with residual right-sided paralysis. With reported confusion/ hallucinations at outpatient physician's office and was advised to go to ER. Head CT with evidence of old left infarct, no acute intracranial abnormality. Patient appears to be back to baseline, LOC 4, no confusion or hallucinations apparent. Hold on further workup at this time. Continue home ASA, Plavix, statin, BB. PT/OT recommending SNF (2) Hypertension Current Visit: No Status: Chronic Assessment and plan: per hx. BP controlled. Cont home BP medication. Monitor BP and titrate PRN Qualifiers: Hypertension type: essential hypertension Qualified Code(s): I10 - Essential (primary) hypertension (3) UTI (urinary tract infection) Current Visit: Yes Status: Resolved Assessment and plan: UA indicative of UTI. Urine cx with pansensitive Escherichia coli. Completed 5 day course IV ceftriaxone. Qualifiers: Urinary tract infection type: site unspecified Hematuria presence: without hematuria Qualified Code(s): N39.0 - Urinary tract infection, site not specified (4) Right leg pain Current Visit: Yes Status: Chronic Assessment and plan: reports fall 2 months ago with subsequent persistent right leg/knee pain. Right knee swollen, tender on exam. Right knee x-ray non-acute. Cont PRN oxycodone (5) DVT prophylaxis Current Visit: Yes Status: Acute Assessment and plan: heparin - Subjective Interval history: Seen and examined at bedside. Uneventful night; says she feels about the same. Still with right leg pain but about the same. She was posted discharged to SNF yesterday however still awaiting approval from insurance. - Constitutional Vitals: Temp Pulse Resp BP Pulse Ox 97.8 F 83 16 126/84 98 11/25/17 15:28 11/25/17 15:28 11/25/17 15:28 11/25/17 15:28 11/25/17 15:28 General appearance: Present: A&O X 3, no acute distress - Head Head exam: Present: atraumatic, normocephalic - Eye Eye exam: Present: PERRL, conjuntiva pink, sclera anicteric Pupils: Present: PERRL - Neck Neck exam general surgery: Present: supple, trachea midline. Absent: lymphadenopathy - Respiratory Respiratory exam: Present: CTAB. Absent: accessory muscle use, rales, rhonchi, wheezes - Cardiovascular Cardiovascular exam: Present: RRR, +S1, +S2. Absent: diastolic murmur, gallop, rubs, systolic murmur - GI/Abdominal GI/Abdominal exam: Present: normal bowel sounds, soft, no peritoneal signs. Absent: distended, tenderness - Extremities Exam Extremities exam: Present: warm, radial pulses palpable and symmetrical. Absent : calf tenderness, cyanotic, pedal edema Additional comments: Right upper and lower extremity paralysis - Neurological Exam Neurological exam: Present: CN II-XII intact, oriented X3, no focal deficits. Absent: pronater drift, facial droop, speech deficit - Skin Skin exam: Present: dry, intact Internal Medicine: Result - Labs CBC & Chem 7: 11/21/17 03:48 11/21/17 03:48 Consult Discharge Plan - Plan Referrals: Alivia Worthy MD [Non-Partnered Physician] -
[2017-11-25] MEDS: traZODone 50 MG TABLET PO SCH (20:49)
[2017-11-26] MEDS: *HR* Heparin 5,000 UNIT/ML VIAL SQ SCH (06:12)
[2017-11-26] MEDS: Gabapentin 100 MG CAPSULE PO SCH (10:39)
[2017-11-26] MEDS: Baclofen 10 MG TABLET PO SCH (10:39)
[2017-11-26] MEDS: Famotidine 20 MG TABLET PO SCH (10:39)
[2017-11-26] MEDS: levoFLOXacin 500 MG TABLET PO SCH (10:40)
[2017-11-26] MEDS: Aspirin 81 MG TAB.CHEW PO SCH (10:40)
--- NOTE | 2017-11-26 14:11 | Discharge Summary ---
Date of Encounter: 11/26/17 Time of Encounter: 14:09 - Discharge Diagnosis (1) History of CVA with residual deficit Priority: Secondary Status: Chronic Comments: hx CVA with residual right-sided paralysis. With reported confusion/ hallucinations at outpatient physician's office and was advised to go to ER. Head CT with evidence of old left infarct, no acute intracranial abnormality. Patient appears to be back to baseline, LOC 4, no confusion or hallucinations apparent. Hold on further workup at this time. Continue home ASA, Plavix, statin, BB. PT/OT recommending SNF (2) Hypertension Priority: Secondary Status: Chronic Comments: per hx. BP controlled. Cont home BP medication. Qualifiers: Hypertension type: essential hypertension Qualified Code(s): I10 - Essential (primary) hypertension (3) UTI (urinary tract infection) Priority: Primary Status: Resolved Comments: UA indicative of UTI. Urine cx with pansensitive Escherichia coli. Completed 5 day course IV ceftriaxone. Qualifiers: Urinary tract infection type: site unspecified Hematuria presence: without hematuria Qualified Code(s): N39.0 - Urinary tract infection, site not specified (4) Right leg pain Priority: Primary Status: Chronic Comments: reports fall 2 months ago with subsequent persistent right leg/knee pain. Right knee swollen, tender on exam. Right knee x-ray non-acute. Cont PRN oxycodone - Discharge Medications Home Medications: Famotidine [Pepcid] 20 mg PO Q12H 11/07/16 [History] Aspirin 81 mg PO DAILY 11/28/16 [History] Atorvastatin Calcium [Lipitor] 40 mg PO HS #30 12/04/16 [Rx] Clopidogrel [Plavix] 75 mg PO DAILY #30 12/04/16 [Rx] Gabapentin [Neurontin] 100 mg PO BID 05/30/17 [History] Lisinopril/Hydrochlorothiazide [Zestoretic 10-12.5 mg Tablet] 1 each PO DAILY [History] Oxybutynin Chloride [Ditropan Xl] 5 mg PO DAILY 05/30/17 [History] Sennosides/Docusate Sodium [Senna Plus] 1 each PO DAILY PRN 05/30/17 [History] Sertraline [Zoloft] 25 mg PO HS 05/30/17 [History] traZODone [TraZODone] 50 mg PO HS 05/30/17 [History] Baclofen [Lioresal] 15 mg PO DAILY 11/20/17 [History] Calcium Carb/Vitamin D3/Vit K1 [Calcium + D Soft Chewable Tab] 1 each PO DAILY 11/20/17 [History] Lidocaine Patch [Lidoderm 5% patch] 1 each TP DAILY adh..patch 11/24/17 [Rx] Allergies/Adverse Reactions: 3 Allergy/AdvReac Type Severity Reaction Status Date / Time No Known Allergies Allergy Verified 06/24/17 10:37 Date of admission: 11/20/17 20:10 Primary care physician: Alivia Worthy Consults: 11/20/17 21:53 Consult to Occupational Therapy [CONS] Routine Comment: Evaluate, develop and implement POC Reason for Consult: 62F h/o CVA with ongoing unilateral weakness Consult to Physical Therapy [CONS] Routine Comment: Evaluate, develop and implement POC Reason for Consult: 62F h/o CVA with ongoing unilateral weakness Discharging clinician: Marion Samuels Anticipated date of discharge: 11/26/17 - Patient Status Disposition: Transfer SNF Condition: Good - Discharge Instructions Follow Up With: Alivia Worthy MD [Primary Care Provider] - Interval History: Seen and examined at bedside. Uneventful night, no changes in exam to report. Discussed with bilingual social worker today and still awaiting prior authorization for SNF placement. Hopefully will be obtained today. Patient has no complaints besides chronic right lower extremity pain and wanting to move forward discharge. Hospital course: See assessment and plan for hospital course - Time Spent with Patient Total time spent providing and/or coordinating discharge services: - Constitutional Vitals: Temp Pulse Resp BP Pulse Ox 98.3 F 88 17 126/81 95 11/26/17 11:45 11/26/17 11:45 11/26/17 11:45 11/26/17 11:45 11/26/17 11:45 General appearance: Present: A&O X 3, no acute distress - Head Head exam: Present: atraumatic, normocephalic - Eye Eye exam: Present: PERRL, conjuntiva pink, sclera anicteric Pupils: Present: PERRL - Neck Neck exam general surgery: Present: supple, trachea midline. Absent: lymphadenopathy - Respiratory Respiratory exam: Present: CTAB. Absent: accessory muscle use, rales, rhonchi, wheezes - Cardiovascular Cardiovascular exam: Present: RRR, +S1, +S2. Absent: diastolic murmur, gallop, rubs, systolic murmur - GI/Abdominal GI/Abdominal exam: Present: normal bowel sounds, soft, no peritoneal signs. Absent: distended, tenderness - Extremities Exam Extremities exam: Present: warm, radial pulses palpable and symmetrical. Absent : calf tenderness, cyanotic, pedal edema Additional comments: Right upper and lower extremity paralysis - Neurological Exam Neurological exam: Present: CN II-XII intact, oriented X3, no focal deficits. Absent: pronater drift, facial droop, speech deficit - Skin Skin exam: Present: dry, intact
[2017-11-26] MEDS: *HR* OxyCODONE Immed Rel 5 MG TABLET PO PRN (16:15)
[2017-11-26 16:16] VITALS: BP 151/99
--- NOTE | 2017-11-26 16:53 | Physician Discharge Referral ---
ExtendedCare Referral Info Transfer To: SNF Provider in Charge: Marion Samuels CNP Provider in Charge after Transfer: PCP Institutional Level of Care: Skilled - Diagnosis (1) History of CVA with residual deficit Status: Chronic (2) Hypertension Status: Chronic (3) UTI (urinary tract infection) Status: Resolved (4) Right leg pain Status: Chronic - Transfer Medications Home Medications: Famotidine [Pepcid] 20 mg PO Q12H 11/07/16 [History] Aspirin 81 mg PO DAILY 11/28/16 [History] Atorvastatin Calcium [Lipitor] 40 mg PO HS #30 12/04/16 [Rx] Clopidogrel [Plavix] 75 mg PO DAILY #30 12/04/16 [Rx] Gabapentin [Neurontin] 100 mg PO BID 05/30/17 [History] Lisinopril/Hydrochlorothiazide [Zestoretic 10-12.5 mg Tablet] 1 each PO DAILY [History] Oxybutynin Chloride [Ditropan Xl] 5 mg PO DAILY 05/30/17 [History] Sennosides/Docusate Sodium [Senna Plus] 1 each PO DAILY PRN 05/30/17 [History] Sertraline [Zoloft] 25 mg PO HS 05/30/17 [History] traZODone [TraZODone] 50 mg PO HS 05/30/17 [History] Baclofen [Lioresal] 15 mg PO DAILY 11/20/17 [History] Calcium Carb/Vitamin D3/Vit K1 [Calcium + D Soft Chewable Tab] 1 each PO DAILY 11/20/17 [History] Lidocaine Patch [Lidoderm 5% patch] 1 each TP DAILY adh..patch 11/24/17 [Rx] Allergies/Adverse Reactions: 3 Allergy/AdvReac Type Severity Reaction Status Date / Time No Known Allergies Allergy Verified 06/24/17 10:37 - Respiratory Orders None Smoking Cessation: Smoking cessation has been advised. For more information, call the [place] Tobacco Quit Line at 0-851-VOVS-NOW. - Advance Directives Code Status: Full Code - Mobility Orders Ambulate - Rehabiliation Orders Rehab Potential: Fair Rehab Orders: Evaluation for Physical Therapy, Evaluation for Occupational Therapy, Evaluation for Speech Therapy - Diet Orders Cardiac CERTIFICATION: I certify that the transfer of the above named patient to an Extended Care Facility is necessary for the continuing treatment of the diagnosis listed. The above information is true and accurate reflection of patient's current condition. Confidential - Redisclosure prohibited without a patient's written consent.
== END 2017-11-26 17:51 ==
LOC: EMEROO 15:07 → 3BNU 15:07
PROVIDERS: ADMIT Internal Medicine; ATTEND Registered Nurse

== ENCOUNTER 2020-01-09 06:24 | Inpatient (IN) ==
[~2020-01-09 06:24] MED LIST: Vancomycin 1,000 MG, Sodium Chloride IRRigation 1,000 ML IR ONE
[2020-01-09] MEDS ORDERED: CeFAZolin Syr 2,000MG/20 ML 2,000 MG/20 ML SYRINGE IVPB ONE (06:57)
[2020-01-09] MEDS ORDERED: Ringers Solution, Lactated 1,000 ML IVC SCH (07:00)
[2020-01-09] MEDS ORDERED: Lidocaine -MPF 2% 5 ML VIAL ONE (07:02)
[2020-01-09] MEDS ORDERED: *HR* HYDROmorphone (PF) 1 MG/ML SYRINGE IVP PRN (07:15)
[2020-01-09] MEDS ORDERED: Acetaminophen IV 1,000 MG/100 ML INFUS..BTL IVPB ONE (07:15)
[2020-01-09] MEDS ORDERED: *HR* Promethazine 25 MG/ML VIAL IVP PRN (07:15)
[2020-01-09] MEDS ORDERED: Famotidine 20 MG/2 ML VIAL IVP ONE (07:15)
[2020-01-09] MEDS ORDERED: *HR* OxyCODONE Immed Rel 5 MG TABLET PO PRN ×2 (07:15→13:10)
[2020-01-09] MEDS ORDERED: *HR* Labetalol 20 MG/4 ML SYRINGE IVP PRN ×2 (07:15→13:10)
[2020-01-09] MEDS ORDERED: *HR* HYDROmorphone 2 MG TABLET PO PRN (07:15)
[2020-01-09] MEDS ORDERED: Pregabalin 75 MG CAPSULE PO ONE (07:15)
[2020-01-09] MEDS ORDERED: Bupivacaine-MPF 0.25% 10 ML VIAL ONE (07:19)
[2020-01-09] MEDS ORDERED: Heparin 1,000 UNITS/500 mL 500 ML ONE ×2 (07:20→07:28)
[2020-01-09] MEDS ORDERED: Lidocaine -MPF 2% 2 ML VIAL ONE ×2 (07:27→08:20)
[2020-01-09] MEDS ORDERED: Ondansetron 4 MG/2 ML VIAL ONE (07:27)
[2020-01-09] MEDS ORDERED: *HR* Propofol 200 MG/20 ML VIAL IVP ONE (07:27)
[2020-01-09] MEDS ORDERED: *HR* Succinylcholine 200 MG/10 ML VIAL IVP ONE (07:27)
[2020-01-09] MEDS ORDERED: *HR* FentaNYL (PF) 100 MCG/2 ML VIAL ONE (07:27)
[2020-01-09] MEDS ORDERED: Dexamethasone 4 MG/ML VIAL ONE (07:27)
[2020-01-09] MEDS ORDERED: *HR* Labetalol 20 MG/4 ML SYRINGE IVP ONE (07:27)
[2020-01-09] MEDS ORDERED: Lidocaine HCL 4 ML Topical Solution (Laryng-O-Jet Kit Sterile Pak) TP ONE (07:27)
[2020-01-09] MEDS ORDERED: *HR* Midazolam HCl 2 MG/2 ML VIAL ONE (07:27)
[2020-01-09] MEDS ORDERED: *HR* PHENYLEPHRINE 1,000 MCG/10 ML SYRINGE IVP ONE (07:28)
[2020-01-09] MEDS ORDERED: *HR* Remifentanil 2 MG VIAL IVP ONE (07:30)
[2020-01-09] MEDS ORDERED: Lidocaine 1% 20 ML MDV ONE (07:44)
[2020-01-09] MEDS ORDERED: Albuterol 2.5 MG/3 ML NEBULIZER IH ONE (07:54)
[2020-01-09] MEDS ORDERED: Protamine Sulfate 50 MG/5 ML VIAL IVP ONE ×2 (07:57→12:15)
[2020-01-09] MEDS ORDERED: EPHEDrine 50 MG/ML VIAL ONE (08:45)
[2020-01-09] MEDS ORDERED: *HR* Phenylephrine 10 MG/ML VIAL ONE (09:11)
[2020-01-09] MEDS ORDERED: *HR* Heparin 5,000 UNIT/ML VIAL ONE (09:59)
[2020-01-09] MEDS ORDERED: Ondansetron 4 MG/2 ML VIAL IVP PRN (13:10)
[2020-01-09] MEDS ORDERED: Naloxone 0.4 MG/ML INJ IVP PRN (13:10)
[2020-01-09] MEDS ORDERED: GuaiFENesin Liq 200 MG/10 ML UDC PO PRN (13:10)
[2020-01-09] MEDS ORDERED: 0.9 % Sodium Chloride 1,000 ML IVC SCH (13:10)
[2020-01-09] MEDS ORDERED: Methyl Salicylate/Menthol 57 APPL/57 GM TUBE TP PRN (13:10)
[2020-01-09] MEDS ORDERED: *HR* HYDROcodone/Acet 5/325 mg TABLET PO PRN (13:10)
[2020-01-09] MEDS ORDERED: Acetaminophen 325 MG TABLET PO PRN (13:10)
[2020-01-09] MEDS: *HR* Metoprolol 5 MG/5 ML VIAL IVP SCH ×2 (13:53→17:07)
[2020-01-09] MEDS: ceFAZolin 2,000 MG in 0.9 % Sodium Chloride 100 ML IVPB SCH (14:19)
[2020-01-09] MEDS ORDERED: Gabapentin 100 MG CAPSULE PO SCH (21:00)
[2020-01-09] MEDS ORDERED: Melatonin 3 MG TABLET PO SCH (21:00)
[2020-01-10] MEDS: ceFAZolin 2,000 MG in 0.9 % Sodium Chloride 100 ML IVPB SCH (01:04)
[2020-01-10] MEDS: *HR* Metoprolol 5 MG/5 ML VIAL IVP SCH ×2 (01:05→05:52)
[2020-01-10 04:08] VITALS: BP 114/64
[2020-01-10] MEDS ORDERED: *HR* Heparin 5,000 UNIT/ML VIAL SQ SCH ×2 (06:00)
[2020-01-10] MEDS ORDERED: Baclofen 10 MG TABLET ONE (07:47)
[2020-01-10] MEDS ORDERED: Furosemide 40 MG TABLET PO ONE (07:47)
[2020-01-10] MEDS ORDERED: Aspirin Enteric Coated 81 MG Tablet PO ONE (07:47)
[2020-01-10] MEDS ORDERED: Cholecalciferol (D-3) 1,000 UNIT (25MCG) TABLET PO ONE (07:47)
[2020-01-10] MEDS ORDERED: Gabapentin 100 MG CAPSULE ONE (07:47)
[2020-01-10] MEDS ORDERED: Aspirin Enteric Coated 81 MG Tablet PO SCH (09:00)
[2020-01-10] MEDS ORDERED: Cholecalciferol (D-3) 1,000 UNIT (25MCG) TABLET PO SCH (09:00)
[2020-01-10] MEDS ORDERED: Furosemide 40 MG TABLET PO SCH (09:00)
[2020-01-10] MEDS ORDERED: Baclofen 10 MG TABLET PO SCH (09:00)
== END 2020-01-10 18:00 | DRG 38 ==
LOC: SAMDAY 06:24 → 2NNU 13:15
PROVIDERS: ADMIT Surgery; ATTEND Surgery

== ENCOUNTER 2021-05-10 14:53 | Inpatient (IN) ==
[2021-05-10] MEDS ORDERED: 0.9 % Sodium Chloride 1,000 ML IVC ONE (15:05)
[2021-05-10] MEDS ORDERED: Isovue-370 500 ML BOTTLE IVP ONE (15:06)
[2021-05-10] MEDS ORDERED: Ondansetron 4 MG/2 ML VIAL IVP ONE (15:12)
[2021-05-10] MEDS ORDERED: *HR* HYDROmorphone (PF) 1 MG/ML SYRINGE IVP ONE (15:12)
[2021-05-10] MEDS ORDERED: Morphine Sulfate 2 MG/ML SYRINGE IVP STA (16:00)
[2021-05-10 16:16] LABS: Basophils % 0.3 %; Eosinophils # 0.1 K/mcL (0.0-0.6); Eosinophils % 0.5 %; Hematocrit 40.6 % (35.3-44.9); Hemoglobin 13.7 g/dL (11.5-15.4); Immature Granulocytes % 0.4 % (0-4); Lymphocytes # 1.1 K/mcL (0.6-4.6); Lymphocytes % 10.6 %; Mean Corpuscular HGB Conc 33.7 g/dL (31.6-35.5); Mean Corpuscular Hemoglobin 30.6 pg (28.0-33.3); Mean Corpuscular Volume 90.8 fL (83.0-100.0); Mean Platelet Volume 10.3 fL (9.4-12.4); Monocytes # 1.1 K/mcL (0.0-1.3); Monocytes % 9.9 %; Neutrophils # 8.4 K/mcL (1.6-8.9); Platelet Count 288 K/mcL (140-400); Red Blood Count 4.47 M/mcL (3.82-4.97); Red Cell Distribution Width 12.9 % (11.5-14.5); Segmented Neutrophils % 78.3 %; White Blood Count 10.7 K/mcL (4.3-11.1)
[2021-05-10 16:23] LABS: INR 1.1; Prothrombin Time 12.9 Seconds (9.4-12.1)
[2021-05-10 16:26] LABS: Activated Partial Thrombo Time 29.1 Seconds (26.0-36.0)
[2021-05-10 16:32] LABS: Alanine Aminotransferase 32 Units/L (7-52); Albumin 4.3 g/dL (3.5-5.7); Albumin/Globulin Ratio 1.8 (1.1-2.2); Alkaline Phosphatase 87 Units/L (34-104); Aspartate Amino Transferase 21 Units/L (13-39); BUN/Creatinine Ratio 14 (6-26); Bilirubin,Direct 0.1 mg/dL (0.0-0.2); Bilirubin,Indirect 0.4 mg/dL (0.0-1.0); Bilirubin,Total 0.5 mg/dL (0.3-1.0); Blood Urea Nitrogen 11 mg/dL (8-23); Calcium 9.5 mg/dL (8.6-10.3); Carbon Dioxide 33 mEq/L (23-29); Chloride 94 mEq/L (98-107); Globulin 2.4 g/dL (2.4-3.5); Glucose 108 mg/dL (70-105); Osmolality,Calculated 278 (280-300); Potassium 3.8 mEq/L (3.5-5.1); Sodium 134 mEq/L (136-145); Total Protein 6.7 g/dL (6.4-8.9); eGFR For African Americans > 60 (> 60); eGFR For Non-African Americans > 60 (> 60)
[2021-05-10 18:51] LABS: Hematocrit 39.2 % (35.3-44.9); Hemoglobin 12.6 g/dL (11.5-15.4)
[2021-05-10] MEDS ORDERED: Morphine Sulfate 2 MG/ML SYRINGE IVP ONE (19:30)
[2021-05-10] MEDS ORDERED: Acetaminophen 325 MG TABLET PO PRN (19:52)
[2021-05-10] MEDS ORDERED: Naloxone 0.4 MG/ML INJ IVP PRN (19:52)
[2021-05-10] MEDS: Ondansetron ODT 4 MG TAB.RAPDIS SL PRN (20:47)
[2021-05-10] MEDS: 0.9 % Sodium Chloride 1,000 ML IVC SCH (20:47)
[2021-05-10 22:59] LABS: Bilirubin,Urine Negative (Negative); Blood,Urine Moderate (Negative); Clarity,Urine Turbid (Clear); Color,Urine Dark-Red (Yellow); Glucose,Urine (UA) Normal (Normal); Ketones,Urine Negative (Negative); Leukocyte Esterase,Urine Negative (Negative); Nitrite,Urine Negative (Negative); PH,Urine 7.5 pH Units (5.0-8.0); Protein,Urine >=600 mg/dL (Neg-Trace); Specific Gravity,Urine > 1.030 (1.010-1.025); Urobilinogen,Urine Normal (Normal)
[2021-05-10] MEDS: Morphine Sulfate 2 MG/ML SYRINGE IVP PRN (23:21)
[2021-05-11 01:19] LABS: Protein/Creatinine Ratio,Urine 30.04 mg/mg (0.00-0.20)
[2021-05-11] MEDS: Morphine Sulfate 2 MG/ML SYRINGE IVP PRN ×3 (04:58→22:52)
[2021-05-11 06:14] LABS: Basophils % 0.3 %; Eosinophils % 0.2 %; Hematocrit 34.7 % (35.3-44.9); Hemoglobin 11.4 g/dL (11.5-15.4); Immature Granulocytes % 0.4 % (0-4); Lymphocytes # 1.5 K/mcL (0.6-4.6); Lymphocytes % 15.8 %; Mean Corpuscular HGB Conc 32.9 g/dL (31.6-35.5); Mean Corpuscular Hemoglobin 30.4 pg (28.0-33.3); Mean Corpuscular Volume 92.5 fL (83.0-100.0); Monocytes # 1.2 K/mcL (0.0-1.3); Monocytes % 12.4 %; Neutrophils # 6.7 K/mcL (1.6-8.9); Platelet Count 254 K/mcL (140-400); Red Blood Count 3.75 M/mcL (3.82-4.97); Red Cell Distribution Width 13.2 % (11.5-14.5); Segmented Neutrophils % 70.9 %; White Blood Count 9.4 K/mcL (4.3-11.1)
[2021-05-11 06:40] LABS: BUN/Creatinine Ratio 21 (6-26); Blood Urea Nitrogen 14 mg/dL (8-23); Calcium 8.5 mg/dL (8.6-10.3); Carbon Dioxide 25 mEq/L (23-29); Chloride 101 mEq/L (98-107); Glucose 120 mg/dL (70-105); Magnesium 1.8 mg/dL (1.6-2.6); Osmolality,Calculated 282 (280-300); Sodium 135 mEq/L (136-145); eGFR For African Americans > 60 (> 60); eGFR For Non-African Americans > 60 (> 60)
[2021-05-11] MEDS: 0.9 % Sodium Chloride 1,000 ML IVC SCH (06:52)
[2021-05-11 13:03] LABS: Adenovirus Not Detected (Not Detect); Bordetella Pertussis Not Detected (Not Detect); Chlamydophila pneumoniae Not Detected (Not Detect); Coronavirus 229E Not Detected (Not Detect); Coronavirus HKU1 Not Detected (Not Detect); Coronavirus NL63 Not Detected (Not Detect); Coronavirus OC43 Not Detected (Not Detect); Human Metapneumovirus Not Detected (Not Detect); Human Rhinovirus/Enterovirus Not Detected (Not Detect); Influenza A Subtype 2009 H1 Not Detected (Not Detect); Influenza B Not Detected (Not Detect); Mycoplasma pneumoniae Not Detected (Not Detect); Parainfluenza Virus 1 Not Detected (Not Detect); Parainfluenza Virus 2 Not Detected (Not Detect); Parainfluenza Virus 3 Not Detected (Not Detect); Parainfluenza Virus 4 Not Detected (Not Detect); Respiratory Syncytial Virus Not Detected (Not Detect); SARS-CoV-2 Not Detected (Not Detect)
[2021-05-11] MEDS: Gabapentin 100 MG CAPSULE PO SCH ×2 (15:07→20:32)
[2021-05-11] MEDS ORDERED: *HR* Propofol 200 MG/20 ML VIAL IVP ONE (15:50)
[2021-05-11] MEDS ORDERED: *HR* FentaNYL (PF) 100 MCG/2 ML VIAL ONE (15:50)
[2021-05-11] MEDS ORDERED: Ondansetron 4 MG/2 ML VIAL ONE (15:51)
[2021-05-11] MEDS ORDERED: Lidocaine -MPF 2% 2 ML VIAL ONE (15:51)
[2021-05-11] MEDS ORDERED: EPHEDrine 50 MG/ML VIAL ONE (18:32)
[2021-05-11] MEDS ORDERED: *HR* HYDROMORPHONE 2 MG/ML VIAL ONE (18:47)
[2021-05-11] MEDS ORDERED: *HR* OxyCODONE Immed Rel 5 MG TABLET PO STA (19:08)
[2021-05-11] MEDS: Melatonin 3 MG TABLET PO SCH (20:32)
[2021-05-12 05:38] LABS: Basophils % 0.1 %; Hemoglobin 9.5 g/dL (11.5-15.4); Immature Granulocytes % 1.4 % (0-4); Lymphocytes # 0.8 K/mcL (0.6-4.6); Mean Corpuscular HGB Conc 33.9 g/dL (31.6-35.5); Mean Corpuscular Hemoglobin 31.4 pg (28.0-33.3); Mean Corpuscular Volume 92.4 fL (83.0-100.0); Mean Platelet Volume 10.3 fL (9.4-12.4); Monocytes # 0.7 K/mcL (0.0-1.3); Monocytes % 8.4 %; Neutrophils # 6.4 K/mcL (1.6-8.9); Platelet Count 215 K/mcL (140-400); Red Blood Count 3.03 M/mcL (3.82-4.97); Segmented Neutrophils % 80.1 %
[2021-05-12 07:21] LABS: BUN/Creatinine Ratio 16 (6-26); Blood Urea Nitrogen 9 mg/dL (8-23); Calcium 8.1 mg/dL (8.6-10.3); Carbon Dioxide 25 mEq/L (23-29); Chloride 104 mEq/L (98-107); Glucose 133 mg/dL (70-105); Osmolality,Calculated 279 (280-300); Potassium 4.2 mEq/L (3.5-5.1); Sodium 134 mEq/L (136-145); eGFR For African Americans > 60 (> 60); eGFR For Non-African Americans > 60 (> 60)
[2021-05-12] MEDS: Morphine Sulfate 2 MG/ML SYRINGE IVP PRN ×3 (07:41→20:15)
[2021-05-12] MEDS: Cholecalciferol (D-3) 1,000 UNIT (25MCG) TABLET PO SCH (07:41)
[2021-05-12] MEDS: Gabapentin 100 MG CAPSULE PO SCH ×3 (07:41→20:58)
[2021-05-12] MEDS ORDERED: Morphine Sulfate 2 MG/ML SYRINGE IVP ONE (08:11)
[2021-05-12] MEDS: Ondansetron ODT 4 MG TAB.RAPDIS SL PRN (15:20)
[2021-05-12] MEDS: Melatonin 3 MG TABLET PO SCH (20:59)
[2021-05-13] MEDS: Morphine Sulfate 2 MG/ML SYRINGE IVP PRN ×3 (01:00→10:10)
[2021-05-13 04:33] LABS: Basophils % 0.4 %; Eosinophils # 0.2 K/mcL (0.0-0.6); Eosinophils % 1.8 %; Hematocrit 29.7 % (35.3-44.9); Hemoglobin 10.1 g/dL (11.5-15.4); Lymphocytes # 2.5 K/mcL (0.6-4.6); Lymphocytes % 24.1 %; Mean Corpuscular Volume 91.1 fL (83.0-100.0); Mean Platelet Volume 9.9 fL (9.4-12.4); Monocytes # 1.1 K/mcL (0.0-1.3); Neutrophils # 6.3 K/mcL (1.6-8.9); Nucleated Red Blood Cells 0.5 /100 WBC (0); Platelet Count 230 K/mcL (140-400); Red Blood Count 3.26 M/mcL (3.82-4.97); Red Cell Distribution Width 13.1 % (11.5-14.5); Segmented Neutrophils % 61.7 %; White Blood Count 10.3 K/mcL (4.3-11.1)
[2021-05-13 04:57] LABS: BUN/Creatinine Ratio 11 (6-26); Blood Urea Nitrogen 7 mg/dL (8-23); Calcium 8.5 mg/dL (8.6-10.3); Carbon Dioxide 25 mEq/L (23-29); Chloride 105 mEq/L (98-107); Glucose 111 mg/dL (70-105); Osmolality,Calculated 285 (280-300); Potassium 3.6 mEq/L (3.5-5.1); Sodium 138 mEq/L (136-145); eGFR For African Americans > 60 (> 60); eGFR For Non-African Americans > 60 (> 60)
[2021-05-13 07:35] VITALS: O2SAT 95
[2021-05-13] MEDS: Gabapentin 100 MG CAPSULE PO SCH (10:04)
[2021-05-13] MEDS: Cholecalciferol (D-3) 1,000 UNIT (25MCG) TABLET PO SCH (10:04)
[2021-05-13 10:06] VITALS: BP 149/78; PULSE 84; TEMP 98.5
== END 2021-05-13 11:56 | DRG 669 ==
LOC: 3ANU 14:53 → EMEROOARM 14:53 → 3ANU 20:15 → SUATTDRO 05-11 10:04
PROVIDERS: ADMIT Internal Medicine; ATTEND Family Medicine